=== PATIENT | male | born 1945 | race Caucasian/White ===

== ENCOUNTER 2019-10-26 07:07 | Day surgery (SDC) | payer OTHER ==
--- OUTSIDE RECORDS SUMMARY | 2019-10-26 07:10 | XMS REPORT | Continuity of Care Document ---
:1945 Author Organization [facility] Address [address] [place] [address] Dr. Al[address] [place] [address] Care Team Providers Name Role Phone Unavailable Unavailable Unavailable Problems Condition Condition Condition Status Onset Resolution Last Treating Co mments Source Name Details Category Date Date Treatment Clinician Date BPH with BPH with Problem [facility] - n/lower n/lower [facility] urinary urinary l tract tract Outpati symptoms symptoms ent Clinics Erectile Erectile Problem Active [facility] Allergies, Adverse Reactions, Alerts This patient has no known allergies or adverse reactions. Medications Ordered Filled Start Stop Current Ordering Indication Dosage Frequency Signature Comments Components Source Medication Medication Date Date Medication? Clinician (SIG) Name Name Bactrim Bactrim Yes Joseph [address] [facility] Tamsulosin Tamsulosin Yes Joseph [address] [facility] HCl HCl [place] [facility] Amlodipine Amlodipine Yes Joseph [address] [facility] Besylate Besylate [place] [facility] Repatha Repatha Yes Joseph as [facility] [place] [facility] Cialis Cialis Yes Joseph [address] [facility] Procedures This patient has no known procedures. Encounters Start End Encounter Admission Attending Care Care Encounter Source Date/Time Date/Time Type Type Clinicians Facility Department ID 2019-10-12 2019-10-12 Outpatient Danilo Rao [id number] [facility] 16[facility]13[facility]00 16:13:00 t Specialty/U [facility] Out[facility] ent Clinics 2019-10-11 2019-10-11 Outpatient Danilo Rao [id number] [facility] 12:50:00 12:50:00 t Specialty/U [facility] - [facility] l Clinic Outpat[facility] ent Clinics 2019-10-05 2019-10-05 [facility] [id number] [facility] 10:45:00 10:45:00 t Specialty/U [facility] - [facility] l Clinic Outpati ent Clinics 2019-09-29 2019-09-29 [facility] [id number] [facility] 14:15:00 14:15:00 t Specialty/U [facility] - [facility] l Clinic Outpati ent Clinics 2019-09-20 2019-09-20 [facility] [id number] [facility] 15:50:00 15:50:00 t Specialty/U [facility] - [facility] l Clinic Outpati ent Clinics 2019-09-15 2019-09-15 [facility] [id number] [facility] 15:56:00 15:56:00 t Specialty/U [facility] - [facility]rology [facility] l Clinic Outpati ent Clinics 2019-08-16 2019-08-16 [facility] [id number] [facility] 08:45:00 08:45:00 t Specialty/U [facility] - [facility]rology Clinic l Clinic Outpati ent Clinics 2019-07-22 2019-07-22 [facility] [id number] [facility] 08[facility]30:00 08:30:00 t Specialty/U [facility] - [facility]rology Clinic l Clinic Outpati ent Clinics 2019-06-10 2019-06-10 [facility] [id number] [facility] [address] 08:30:00 08:30:00 t Specialty/U [facility] - [facility] /Urology Clinic l Clinic Outpati ent Clinics 2019-06-08 2019-06-08 [facility] [id number] [facility] 10:23:00 10:23:00 t Specialty/U [facility] - [facility]Urology Clinic l Clinic Outpati ent Clinics Results This patient has no known results.
--- OUTSIDE RECORDS SUMMARY | 2019-10-26 07:10 | XMS REPORT ---
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
--- OUTSIDE RECORDS SUMMARY | 2019-10-26 07:10 | XMS REPORT ---
:1945 Author Organization [employer] Care Team Providers Name Role Phone Sachi Srinivasan Provider Role Unavailable Allergies, Adverse Reactions, Alerts Substance Reaction Event Type N.K.D.A. 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 Assessment Smoker Z72.0 Active Assessment Hematuria R31.9 Active Assessment Erectile disorder F52.21 Active Medications Medication Code Code Instructions Start End Status Dosage System Date Date Tamsulosin HCl [facility] 41047300869 0.4 MG Orally Active 1 capsule Once a day Repatha [facility] 14534367801 140mg/ml SQ Active as direc antonio Cialis [facility] 25891352832 20 MG Orally as Active 1 ta blet directed Amlodipine [facility] 02417802660 5 MG Orally Once Active 1 tablet Besylate a day Results No Known Results Summary Purpose eClinicalWorks Submission
--- OUTSIDE RECORDS SUMMARY | 2019-10-26 07:10 | XMS REPORT ---
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
--- OUTSIDE RECORDS SUMMARY | 2019-10-26 07:10 | XMS REPORT ---
:1945 Author Organization [employer] Care Team Providers Name Role Phone Joseph Nava Provider Role Unavailable Allergies, Adverse Reactions, Alerts Substance Reaction Event Type N.K.D.A. 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 Medications Medication Code Code Instructions Start End Status Dosage System Date Date Tamsulosin HCl [facility] 49520647332 0.4 MG Orally Active 1 capsule Once a day Amlodipine ND 43643360024 5 MG Orally Once Active 1 tablet Besylate a day Repatha [facility] 97280570503 140mg/ml SQ Active as direc antonio Cialis [facility] 34790812369 20 MG Orally as Active 1 ta blet directed Bactrim [facility] 22787081190 400-80 MG Orally Active 1 t ablet Once a day Results No Known Results Summary Purpose eClinicalWorks Submission
--- OUTSIDE RECORDS SUMMARY | 2019-10-26 07:10 | XMS REPORT ---
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
[2019-10-26] MEDS ORDERED: CEFTRIAXONE 1 GM/10 ML SYR ONE (08:27)
[2019-10-26] MEDS ORDERED: Ringers Lactate 1,000 ML IV ONE (08:59)
[2019-10-26] MEDS ORDERED: FENTANYL CITR 100 MCG/2 ML ONE (10:09)
[2019-10-26] MEDS ORDERED: propofoL 200 MG/20 ML VIAL IV ONE (10:10)
[2019-10-26] MEDS ORDERED: MIDAZOLAM HCL 2 MG/2 ML INJ ONE (10:10)
[2019-10-26] MEDS ORDERED: ONDANSETRON 4 MG/2 ML VIAL ONE (10:12)
[2019-10-26] MEDS ORDERED: LIDOCAINE 2% MPF 5 ML VIAL ONE (10:30)
[2019-10-26] MEDS ORDERED: ROCURONIUM 50 MG/5 ML VIAL IV ONE (11:04)
[2019-10-26] MEDS ORDERED: EPHEDRINE SULF 50 MG/ML VIAL ONE (11:15)
[2019-10-26] MEDS ORDERED: CODEINE 30MG/APAP 300MG TAB ONE (12:55)
[2019-10-26 14:13] VITALS: TEMP 96.9
[2019-10-26 14:14] VITALS: BP 161/78; O2SAT 93
--- NOTE | 2019-11-30 10:16 | OP ---
Date of Procedure: 10/26/2019 Surgeon: CANDIS HARMON Pan Greaser: Nurse practitioner, Craig. Preoperative Diagnosis: Bladder tumor. Postoperative Diagnosis: Bladder tumor. Procedure Performed: Cystoscopy, transurethral resection of bladder tumor, biopsies of tumor base. Anesthesia: General. Procedure In Detail: With the patient on the cystoscopy table after the induction of general anesthe ekaterina, the genitalia were prepped and draped in the usual sterile fashion. The cystoscope was passed p er urethra. There was a moderate-sized sessile and papillary tumor noted on the anterior bladder wal l in 2 primary areas. There was also moderate BPH. The cystoscope was exchanged for the resectoscop e and the tumor was resected down to its base. Separate cold cup biopsies were obtained of the tumor base and sent as a separate specimen. All of the bladder tumor fragments were sent as a separate sp ecimen as well. The areas were thoroughly fulgurated and complete hemostasis was obtained. A Yang catheter was inserted with clear efflux. It was attached to a drainage bag. The patient was awakene d, extubated, and transported to the recovery room in satisfactory condition. There were no complications and blood loss was approximately 20 cc. Counts were correct. Specimen was as noted above. GUI Voice ID: [id number] Report ID: [id number]
== END 2019-10-26 13:50 | disposition home or self-care (01) ==
LOC: OR 07:07
PROVIDERS: ATTEND Internal Medicine Hematology & Oncology
PROC: 0TBB8ZX Excision of Bladder, Via Natural or Artificial Opening Endoscopic, Diagnostic (ICD-10-PCS; principal; 2019-10-26 08:30)
DX: C67.9 Malignant neoplasm of bladder, unspecified (principal); C67.3 Malignant neoplasm of anterior wall of bladder; N40.1 Benign prostatic hyperplasia with lower urinary tract symptoms; F52.21 Male erectile disorder; F17.210 Nicotine dependence, cigarettes, uncomplicated; R39.15 Urgency of urination; R35.1 Nocturia; I10 Essential (primary) hypertension; E78.5 Hyperlipidemia, unspecified; Z01.812 Encounter for preprocedural laboratory examination; Z20.828 Contact with and (suspected) exposure to other viral communicable diseases
CPT/HCPCS: 52234; 87086; 88305; 88307; U0002; J2704; J3010; J0696; J7120; J2405; 87088; J2250

== ENCOUNTER 2020-01-25 08:00 | Day surgery (SDC) | payer OTHER ==
--- OUTSIDE RECORDS SUMMARY | 2020-01-19 15:24 | XMS REPORT ---
:1945 Author Organization [facility] Address [address] [facility] [address] [place] [address] Care Team Providers Name Role Phone Craig Unavailable [phone] PROBLEMS Type Condition ICD9-CM [id number] Onset Condition SNOMED Code Notes Code Code Dates Status Problem Erectile F52.21 Active 273757475781805 disorder Problem Bladder C67.9 Active 039489517 cancer Problem BPH with N40.1 Active 160013492 obstruction/l ower urinary tract symptoms ALLERGIES No Known Allergies ENCOUNTERS from 1945 to 2019-12-22 Encounter Location Date Provider Diagnosis [place] [address] [facility] Dec, Sachi Craig Bladder cancer Specialty/Urology [address], [address]67[address] [place] [address] tumor D49.4 IMMUNIZATIONS No Information SOCIAL HISTORY Tobacco Use: Social History Observation Description Date Details (start date - stop date) Current Smoker Sex Assigned At : Social History Observation Description Sex Assigned At Unknown Alcohol Screen Question Answer Notes Did you have a drink containing alcohol in Yes the past year? Points 3 Interpretation Negative How often did you have a drink containing Two to three times per week (3 alcohol in the past year? points) Tobacco Use/Smoking Question Answer Notes Are you a current smoker How many cigarettes a day do you smoke? - REASON FOR REFERRAL No Information VITAL SIGNS No information MEDICATIONS Medication SIG (Take, Route, Frequency, Start Date End Date Status Duration) Tamsulosin HCl 0.4 MG 1 capsule Orally Once a day for Active 90 Amlodipine Besylate 5 MG 1 tablet Orally Once a day Active Cialis 20 MG 1 tablet Orally as directed for Active 30 day(s) Bactrim 400-80 MG 1 tablet Orally Once a day for 5 Active days Repatha 140mg/ml as directed SQ Active PROCEDURES No Information RESULTS No Results REASON FOR VISIT Saw blood clot in urine MEDICAL (GENERAL) HISTORY Type Description Date Surgical History appendectomy 1994 Goals Section No Information Health Concerns No Information MEDICAL EQUIPMENT No Information MENTAL STATUS No Information FUNCTIONAL STATUS No Information ASSESSMENTS Encounter Date Diagnosis Notes Dec, Bladder tumor (ICD-10 - D49.4) Dec, Bladder cancer (ICD-10 - C67.9) PLAN OF TREATMENT Treatment Notes Assessment Notes Clinical Notes Bladder tumor Path is high grade i nvasive lamina propria, cytology HGUCF/u if unable to urinate, o r go to ER if chills, fever, N or VIf sees blood, force fluidsN o heavy lifting for next few days, then as ableKeep f/u with Dr Coby Faith, have questions/concerns ready to discuss Next Appt Details prn Reason:Bladder cancer Follow Up:[facility] Insurance Providers Payer Name Payer Address Payer Insured Patient Coverage Cover age End Phone Name Relationship to Start Date Osei e Insured [employer] [address] [address] [phone] Trino Garcia [facility] [address] [place] [address] [phone]
--- OUTSIDE RECORDS SUMMARY | 2020-01-19 15:24 | XMS REPORT ---
:1945 Author Organization [facility] Address [address] [place], [address] [place] [address] Care Team Providers Name Role Phone Craig Unavailable [phone] PROBLEMS Type Condition ICD9-CM [id number] Onset Condition SNOMED Code Notes Code Code Dates Status Problem BPH with N40.1 Active 829605340 obstruction/l ower urinary tract symptoms Problem Erectile F52.21 Active 231235479971374 disorder ALLERGIES No Known Allergies ENCOUNTERS from 1945 to 2019-11-15 Encounter Location Date Provider Diagnosis [facility] [address] [facility] [address] Oct, Sachi Srinivasan Specialty/[place] [address] IMMUNIZATIONS No Information SOCIAL HISTORY Tobacco Use: [...] Information RESULTS No Results REASON FOR VISIT No Information MEDICAL (GENERAL) HISTORY Type Description Date Surgical History appendectomy 1994 Goals Section No Information Health Concerns No Information MEDICAL EQUIPMENT No Information MENTAL STATUS No Information FUNCTIONAL STATUS No Information ASSESSMENTS No Information PLAN OF TREATMENT Medication Medication Name Sig Start Date Stop Date Tamsulosin HCl 0.4 MG 1 capsule Orally Once a day for 90 Next Appt Details Provider Name:Sachi Srinivasan, 09:15:00 AM, [facility] [address], [address], [place], [address], Insurance Providers Payer Name Payer Address Payer Insured Patient Coverage Cover age End Phone Name Relationship to Start Date Osei e Insured [employer] [address] [address] [phone] Trino Garcia [facility] [address] [place] [address] [phone]
--- OUTSIDE RECORDS SUMMARY | 2020-01-19 15:24 | XMS REPORT ---
:1945 Author Organization [facility] Address [address] [facility] [address] [place] [address] Care Team Providers Name Role Phone Craig Unavailable [phone] PROBLEMS Type Condition ICD9-CM [id number] Onset Condition SNOMED Code Notes Code Code Dates Status Problem Erectile F52.21 Active 067944541472697 disorder Problem Bladder C67.9 Active 060160578 cancer Problem BPH with N40.1 Active 245514654 obstruction/l ower urinary tract symptoms ALLERGIES No Known Allergies ENCOUNTERS from 1945 to 2019-12-29 Encounter Location Date Provider Diagnosis [facility] [address] [facility] 200 Dec, Sachi Srinivasan Specialty/[place] [address] IMMUNIZATIONS No Information SOCIAL HISTORY Tobacco Use: [...] Information ASSESSMENTS No Information PLAN OF TREATMENT Next Appt Details Provider Name:Josesito Pa, 2020-01-06 08:30:00 AM, [address] [place] [address], [place], [address], Insurance Providers Payer Name Payer Address Payer Insured Patient Coverage Cover age End Phone Name Relationship to Start Date Osei e Insured [employer] [address] [address] [phone] Trino Garica [facility] [address] [phone]
--- OUTSIDE RECORDS SUMMARY | 2020-01-19 15:24 | XMS REPORT ---
:1945 Author Organization [employer]ClinicalWorks Care Team Providers Name Role Phone Sachi Srinivasan Provider Role Unavailable Allergies, Adverse Reactions, Alerts Substance Reaction Event Type N.K.D.A. 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 Problem Erectile disorder F52.21 Active Assessment Bladder tumor D49.4 Active Medications Medication Code Code Instructions Start End Status Dosage System Date Date Cialis [facility][NOTE 3] 39854654293 20 MG Orally as Active 1 ta blet directed Tamsulosin HCl ND 41894872799 0.4 MG Orally Active 1 capsule Once a day Repatha ND 33103420009 140mg/ml SQ Active as direc antonio Amlodipine ND 27544018788 5 MG Orally Once Active 1 tablet Besylate a day Bactrim ND 90792510888 400-80 MG Orally Active 1 t ablet Once a day Results No Known Results Summary Purpose eClinicalWorks Submission
--- OUTSIDE RECORDS SUMMARY | 2020-01-19 15:24 | XMS REPORT ---
:1945 Author Organization [facility] Address [address] [facility], [address] [place] [address] Care Team Providers Name Role Phone Pa Unavailable [phone] PROBLEMS Type Condition ICD9-CM HPI29-PC Onset Condition SNOMED Code Notes Code Code Dates Status Problem Bladder cancer C67.9 Active 303823280 Problem Urothelial C68.9 Active 375428596 carcinoma with high risk of recurrence Problem BPH with N40.1 Active 051611383 obstruction/lo wer urinary tract symptoms Problem Erectile F52.21 Active 412702240538499 disorder ALLERGIES No Known Allergies ENCOUNTERS from 1945 to 2020-01-06 Encounter Location Date Provider Diagnosis [place] [facility] Dec, Josesito Pa BPH with Specialty/Urology [address] [facility] [address] urinary tract symptoms N40.1 and Urothelial carcinoma with high risk of recurre nce C68.9 IMMUNIZATIONS No Information SOCIAL HISTORY Tobacco Use: [...] many cigarettes a day do you smoke? 21-30 REASON FOR REFERRAL No Information VITAL SIGNS Height 70 in Dec, Weight 189.8 lbs Dec, Temperature 98.3 degrees Fahrenheit Dec, BMI 27.23 kg/m2 Dec, Oximetry 96 % Dec, Blood pressure systolic 188 mm Hg Dec, Blood pressure diastolic 86 mm Hg Dec, MEDICATIONS Medication SIG (Take, Route, Notes Start Date End Date Status Frequency, Duration) Amlodipine Besylate 5 MG 1 tablet Orally Once a day Active Repatha 140mg/ml as directed SQ Acti ve Bactrim 400-80 MG 1 tablet Orally Once a day Active for 5 days Tamsulosin HCl 0.4 MG 1 capsule Orally Once a day Active for 90 Cialis 20 MG 1 tablet Orally as directed Active for 30 day(s) PROCEDURES No Information RESULTS No Results REASON FOR VISIT consultation, S/P TURBT -FAUSTINO 10/26/2019 MEDICAL (GENERAL) HISTORY Type Description Date Medical History 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 PROPIA-NO MUSC ULARIS PROPRIA PRESENT Medical History PSA 1.1 DONE ON 05/05/19 Medical History TESTO 258.4 DONE ON 05/05/19 Surgical History appendectomy 1994 Surgical History TURBT-FAUSTINO 10/26/19 Goals Section No Information Health Concerns No Information MEDICAL EQUIPMENT No Information MENTAL STATUS No Information FUNCTIONAL STATUS No Information ASSESSMENTS Encounter Date Diagnosis Assessment Notes Treatment Notes Treatm ent Clinical Notes Dec, BPH with obstruction/lower urinary tract symptoms (ICD-10 - N40.1) Dec, Urothelial carcinoma with high risk of recurrence (ICD-10 - C68.9) PLAN OF TREATMENT Treatment Notes Test Name Order Date URINALYSIS AUTO W/O SCOPE (89152) 2020-01-06 Urine Culture 2020-01-06 Insurance Providers Payer Name Payer Address Payer Insured Patient Coverage Cover age End Phone Name Relationship to Start Date Osei e Insured [employer] [address] [address] [phone] Trino Garcia [facility] [address] [place] [address] [phone]
--- OUTSIDE RECORDS SUMMARY | 2020-01-19 15:24 | XMS REPORT ---
:1945 Author Organization [facility] Address [address] [facility] [address] [place] [address] Care Team Providers Name Role Phone Pa Unavailable [phone] PROBLEMS Type Condition ICD9-CM [id number] Onset Condition SNOMED Code Notes Code Code Dates Status Problem Bladder cancer C67.9 Active 636448363 Problem Urothelial C68.9 Active 256824319 carcinoma with high risk of recurrence Problem BPH with N40.1 Active 239575408 obstruction/lo wer urinary tract symptoms Problem Erectile F52.21 Active 956786860115935 disorder ALLERGIES No Known Allergies ENCOUNTERS from 1945 to 2020-01-07 Encounter Location Date Provider Diagnosis [facility] [address] [facility] 200 20 Dec, 2019 Josesito Pa Specialty/[place] [address] IMMUNIZATIONS No Information SOCIAL HISTORY Tobacco Use: [...] many cigarettes a day do you smoke? REASON FOR REFERRAL No Information VITAL SIGNS No information MEDICATIONS Medication SIG (Take, Route, Notes Start Date End Date Status Frequency, Duration) Amlodipine Besylate 5 MG 1 tablet Orally Once a Active day Repatha 140mg/ml as directed SQ Acti ve Cialis 20 MG 1 tablet Orally as Acti ve directed for 30 day(s) Gemcitabine HCl 2 GM as directed Intravenous Dec, Active Tamsulosin HCl 0.4 MG 1 capsule Orally Once a Active day for 90 Bactrim 400-80 MG 1 tablet Orally Once a Active day for 5 days PROCEDURES No Information RESULTS No Results REASON FOR VISIT No Information MEDICAL (GENERAL) HISTORY Type Description Date Medical [...] Medication Name Sig Start Date Stop Date Gemcitabine HCl 2 GM as directed Intravenous Dec, Next Appt Details Provider Name:Josesito Pa 2020-01-25 08:30:00 AM, [address] [place] [address], [address], [place], [address], Insurance Providers Payer Name Payer Address Payer Insured Patient Coverage Cover age End Phone Name Relationship to Start Date Osei e Insured [employer] [address] [address] [phone] Trino Garcia [facility] [address] [place] [address] [phone]
--- OUTSIDE RECORDS SUMMARY | 2020-01-19 15:24 | XMS REPORT ---
:1945 Author Organization [facility] Address [address] [facility] [address] [place] [address] Care Team Providers Name Role Phone Craig Unavailable [phone] PROBLEMS Type Condition ICD9-CM SEF90-LE Onset Condition SNOMED Code Notes Code Code Dates Status Problem BPH with N40.1 Active 183314032 obstruction/l ower urinary tract symptoms Problem Erectile F52.21 Active 900190698454620 disorder ALLERGIES No Known Allergies ENCOUNTERS from 1945 to 2019-12-01 Encounter Location Date Provider Diagnosis [facility] [address] [facility] 200 13 Nov, 2019 Sachi Srinivasan Specialty[place] [address] IMMUNIZATIONS No Information SOCIAL HISTORY Tobacco Use: [...] 1 tablet Orally Once a day Active Bactrim 400-80 MG 1 tablet Orally Once a day for 5 Active days Cialis 20 MG 1 tablet Orally as directed for Active 30 day(s) Repatha 140mg/ml as directed SQ Active PROCEDURES [...] 90 Next Appt Details Provider Name:Sachi Srinivasan, 2019-- 09:15:00 AM, [address] [place] [address], [phone], Insurance Providers Payer Name Payer Address Payer Insured Patient Coverage Cover age End Phone Name Relationship to Start Date Osei e Insured [employer] [address] [address] [phone] Trino Garcia [facility] [address] [phone]
--- OUTSIDE RECORDS SUMMARY | 2020-01-19 15:24 | XMS REPORT | Continuity of Care Document ---
:1945 Author Organization [facility] t Address [address] [place] [address] Care Team Providers Name Role Phone Unavailable Unavailable Unavailable Payers Payer Name Policy Type Policy Effective Date Expiration Date Sour ce Number HUMANA [id number] 2019 MD Kelly MEDICAREHUMANDorothy GOLD 00:00:00 PLUS MEDICARE [id number] 2019 -PresentMedicare Problems This patient has no known problems. Allergies, Adverse Reactions, Alerts This patient has no known allergies or adverse reactions. Social History Social Habit Start Date Stop Date Quantity Comments Source Sex Assigned At M MD Kelly Medications Ordered Filled Start Stop Current Ordering Indication Dosage Frequency Signature Comments Components Source Medication Medication Date Date Medication? Clinician (SIG) Name Name Bactrim Bactrim Yes Sachi [address] [facility] [place] Tamsulosin Tamsulosin Yes Sachi [address] [facility] HCl HCl [place] [facility] Amlodipine Amlodipine Yes Sachi [address] [facility] Besylate Besylate [facility] Repatha Repatha Yes Sachi as [facility] Cialis Cialis Yes Sachi [address] [facility] [place] [facility] Procedures This patient has no known procedures. Encounters Start End Encounter Admission Attending Care Care Encounter Source Date/Time Date/Time Type Type Clinicians Facility Department ID 2020-01-07 2020-01-07 [facility] [id number] [facility] 2020-01-06 2020-01-06 [facility] [id number] [facility] 2019-12-28 2019-12-28 [facility] [id number] [facility] 2019-12-22 2019-12-22 Out[facility] [id number] [facility] 2019-11-30 2019-11-30 [facility] [id number] [facility] 2019-11-15 2019-11-15 Out[facility] [id number] [facility] 2019-11-02 2019-11-02 [facility] [id number] [facility] 16[facility]19[facility]00 16:19:00 [facility] 2019-10-29 2019-10-29 [facility] [id number] [facility] 08[facility]15[facility]00 08:15:00 [facility] 2019-10-12 2019-10-12 [facility] [id number] [facility] 16:13:00 16:13:00 t [facility] 2019-10-11 2019-10-11 [facility] [id number] [facility] 12:50:00 12:50:00 [facility] 2019-10-05 2019-10-05 [facility] [id number] [facility] 10:45:00 10:45:00 [facility] 2019-09-29 2019-09-29 [facility] [id number] [facility] 14:15:00 14:15:00 [facility] 2019-09-20 2019-09-20 [facility] [id number] [facility] 15[facility]50:00 15:50:00 [facility] 2019-09-15 2019-09-15 [facility] [id number] [facility] 15[facility]56:00 15:56:00 [facility] 2019-08-16 2019-08-16 [facility] [id number] [facility] 08:45:00 08:45:00 t [facility] 2019-07-22 2019-07-22 [facility] [id number] [facility] 08[facility]30:00 08:30:00 t [facility] 2019-06-10 2019-06-10 [facility] [id number] [facility] 08[facility]30:00 08:30:00 t [facility] 2019-06-08 2019-06-08 [facility] [id number] [facility] 10:23:00 10:23:00 t [facility] Results This patient has no known results.
[2020-01-19 16:31] LABS: Absolute Lymphocytes (CBC) 1.4 K/uL (0.7-4.9); Hematocrit 41.3 % (39.6-49.0); Lymphocytes % 23.5 % (15.3-44.8); MPV 9.3 fL (7.6-11.3); RBC Red Blood Cell Count 4.42 M/uL (4.33-5.43)
--- NOTE | 2020-01-19 16:40 | RAD REPORT ---
EXAM DESCRIPTION: RAD - Chest Pa And Lat (2 Views) - 01/19/2020 4:27 pm CLINICAL HISTORY: PRE OP, patient pending bladder tumor removal COMPARISON: AP chest June 2014 TECHNIQUE: Frontal and lateral views of the chest were obtained. FINDINGS: The lungs are clear of mass or infiltrate. Chronic interstitial pattern is present. No hil ar lymphadenopathy. Heart size is normal and central vasculature is within normal limits. No pleur al effusion or pneumothorax seen. No acute bony finding noted. No aortic abnormality. IMPRESSION: Chronic interstitial pattern similar to comparison. No acute finding.
[2020-01-19 16:41] LABS: BUN Blood Urea Nitrogen 15 mg/dL (7-18); Bicarbonate 30 mmol/L (21-32); Glucose Level 107 mg/dL (74-106); Potassium 4.1 mmol/L (3.5-5.1); Sodium Level 140 mmol/L (136-145)
[2020-01-25] MEDS ORDERED: CEFAZOLIN/SWI 2gm 2 GM/20 ML SYR ONE (08:29)
[2020-01-25] MEDS ORDERED: Ringers Lactate 1,000 ML IV ONE (08:29)
[2020-01-25] MEDS ORDERED: GEMCITABINE HCL 1,000 MG in NA CHLORIDE 0.9% 26.3 ML IVPB ONE (08:30)
[2020-01-25] MEDS ORDERED: FENTANYL CITR 100 MCG/2 ML ONE (09:10)
[2020-01-25] MEDS ORDERED: propofoL 200 MG/20 ML VIAL IV ONE (09:10)
[2020-01-25] MEDS ORDERED: LIDOCAINE 1% MPF 5 ML VIAL ONE (09:10)
[2020-01-25] MEDS ORDERED: ROCURONIUM 50 MG/5 ML VIAL IV ONE (09:27)
[2020-01-25] MEDS ORDERED: KETOROLAC 30 MG/ML INJ ONE (09:39)
[2020-01-25] MEDS ORDERED: EPHEDRINE SULF 50 MG/ML VIAL ONE (09:41)
[2020-01-25] MEDS ORDERED: ONDANSETRON 4 MG/2 ML VIAL ONE (09:41)
[2020-01-25] MEDS ORDERED: NS 0.9% VIAL 10 ML ONE (09:41)
[2020-01-25] MEDS ORDERED: CEFAZOLIN/SWI 1gm 1 GM/10 ML SYR ONE (09:42)
[2020-01-25] MEDS ORDERED: NEOSTIGMINE 1 MG/ML -5 ML ONE (10:32)
[2020-01-25] MEDS ORDERED: GLYCOPYRROLATE 0.2 MG/ML SYR ONE (10:33)
--- OUTSIDE RECORDS SUMMARY | 2020-01-25 10:38 | XMS REPORT | Continuity of Care Document ---
:1945 Author Organization [facility] t Address [address] [place] [address] Care Team Providers Name Role Phone Unavailable Unavailable Unavailable Payers Payer Name Policy Type Policy Effective Date Expiration Date Sour ce Number HUMANA [id number] 2019 MD Kelly MEDICAREHUMANDorothy GOLD 00:00:00 PLUS MEDICARE [id number] 2019 -PresentMedicare Problems This patient has no [...] Bactrim Yes Sachi [address] [facility] [place] [facility] Tamsulosin Tamsulosin Yes Sachi [address] [facility] HCl HCl [place] [facility] Amlodipine Amlodipine Yes Sachi [address] [facility] Besylate Besylate [facility] Repatha Repatha Yes Sachi as [facility] [place] [facility] Cialis Cialis Yes Sachi [address] [facility] [place] [facility] Procedures This patient has no known procedures. Encounters Start End Encounter Admission Attending Care Care Encounter Source Date/Time Date/Time Type Type Clinicians Facility Department ID 2020-01-07 2020-01-07 [facility] [id number] [facility] 2020-01-06 2020-01-06 [facility] [id number] [facility] 2019-12-28 2019-12-28 [facility] [id number] [facility] 2019-12-22 2019-12-22 [facility] [id number] [facility] 2019-11-30 2019-11-30 [facility] [id number] [facility] 2019-11-15 2019-11-15 Out[facility] [id number] [facility] 2019-11-02 2019-11-02 [facility] [id number] [facility] 16:19:00 16:19:00 [facility] 2019-10-29 2019-10-29 [facility] [id number] [facility] 08:15:00 08:15:00 t [facility] 2019-10-12 2019-10-12 [facility] [id number] [facility] 16:13:00 16:13:00 t [facility] 2019-10-11 2019-10-11 [facility] [id number] [facility] 12:50:00 12:50:00 t [facility] 2019-10-05 2019-10-05 [facility] [id number] [facility] 10:45:00 10:45:00 t [facility] 2019-09-29 2019-09-29 [facility] [id number] [facility] 14:15:00 14:15:00 t [facility] 2019-09-20 2019-09-20 [facility] [id number] [facility] 15:50:00 15:50:00 t [facility] 2019-09-15 2019-09-15 [facility] [id number] [facility] 15:56:00 15:56:00 t [facility] 2019-08-16 2019-08-16 [facility] [id number] [facility] 08:45:00 08:45:00 t [facility] 2019-07-22 2019-07-22 [facility] [id number] [facility] 08:30:00 08:30:00 t [facility] 2019-06-10 2019-06-10 [facility] [id number] [facility] 08:30:00 08:30:00 t [facility] 2019-06-08 2019-06-08 [facility] [id number] [facility] 10:23:00 10:23:00 t [facility] Results This patient has no known results.
--- OUTSIDE RECORDS SUMMARY | 2020-01-25 10:38 | XMS REPORT ---
[...] End Status Dosage System Date Date Cialis [facility] 29161058895 20 MG Orally as Active 1 ta blet directed Tamsulosin HCl ND 28761021188 0.4 MG Orally Active 1 capsule Once a day Repatha ND 49243613543 140mg/ml SQ Active as direc antonio Amlodipine ND 84733093663 5 MG Orally Once Active 1 tablet Besylate a day Bactrim ND 16508398746 400-80 MG Orally Active 1 t ablet Once a day Results No Known Results Summary Purpose eClinicalWorks Submission
[2020-01-25] MEDS ORDERED: MORPHINE 4 MG/ML SYR ONE (11:19)
[2020-01-25] MEDS ORDERED: PROMETHAZINE INJ 25 MG/ML AMP ONE (11:19)
--- NOTE | 2020-01-25 12:07 | OP ---
Surgeon: CRUZ GARCIA Addendum: Procedure Performed: Instillation of intravesical gemcitabine chemotherapy that is in addition to th e cystoscopy, dilation of urethral stricture, TURBT, instillation of intravesical gemcitabine chemoth erapy. VIANCA/NABEELL Voice ID: [id number] Report ID: [id number]
--- NOTE | 2020-01-25 12:30 | OP ---
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 Associated Diagnosis: Gross hematuria. Postoperative Diagnoses: 1.pT1 urothelial carcinoma. 2.Gross hematuria. 3.Bladder tumor. 4.Urethral stricture. Procedures Completed: Cystoscopy, dilation of perineal urethral stricture. Transurethral resection of a bladder tumor approximately 3-4 cm in diameter. Procedure Note: The patient was consented in the preoperative holding area before being transferred to operative suite where general anesthesia was induced. He was given IV antimicrobial prophylaxis a nd pneumo boots were provided for DVT prophylaxis. He was placed in the lithotomy position, padded a nd secured to the table appropriately. The case was begun using a 22-Albanian rigid cystoscope to sivan erse the urethra until a strictured narrowing was encountered in the perineal bulbar region. Because it would not allow passage of the 22-Albanian cystoscope, I passed a guidewire via the stricture into the bladder and used sequential dilators to dilate the stricture up to 24-Albanian. Once this was comp leted, I then was able to pass the 22-Albanian cystoscope via the strictured area and beyond the prosta tic urethra, which had only mild BPH and into the bladder with ease. There was evident gross hematur ia, and so the bladder was irrigated to clear it. I then surveyed the bladder in its entirety. In t he dome of the bladder, there was a nodular tumor approximately 3-4 cm in diameter. Initially, using cold cup biopsy forceps, I biopsied the periphery of the tumor in 4 different locations. Because of the size of the tumor, I then used urethral sounds to dilate the meatus and fossa navicularis to 30- Albanian, and then I switched to a 26-Albanian bipolar resectoscope. We switched to normal saline and co ntinued the resection using a loop electrode. The entirety of the tumor was resected down to muscle fibers, and there was no evidence of any bladder perforation or extravesical fat. I carefully fulgur ated the entirety of the tumor, and then Mitzi evacuated all of the mini chips out of the bladder. T ronne were sent separately for pathologic analysis from the initial bladder biopsy specimens. I then decompressed his bladder and carefully searched for bleeding, and when no additional bleeding was not ed, I placed a 20-Albanian urethral Yang catheter with ease into his bladder and 10 cc of sterile wate r into the balloon. I then decompressed his bladder completely of the fluid within and instilled 50 cc of gemcitabine 2 g. The catheter was then clamped and connected to a bag. The patient was then a wakened from general anesthesia after being taken out of the lithotomy position. He was then transfe rred to a stretcher and then to the recovery room in good condition. Complications: None. Discharge Disposition: He will be discharged with a Yang catheter in place after the chemotherapy i s drained and he is provided with a new leg bag. He will be discharged with a daily prophylactic pre scription for Bactrim double strength tablets once daily, and he will be given a prescription for Buck heath 5 mg tablets for pain. Pyridium will be provided for the day of the scheduled voiding trial and pathology discussion. Should he have significant discomfort associated with bladder spasms with the catheter in place, oxybutynin 5 mg tablets may be considered. Impression: Due to the extensive and nodular nature of this tumor, it is my suspicion that the tumor is indeed muscle invasive. Given the isolated location within the dome, I think he would be a good candidate for partial cystectomy. In preparation for that, should the pathology confirm muscle invas carla disease, the patient will require random bladder biopsies prior to robotic partial cystectomy. May lanier will also be arranged in preparation for such events. VIANCA/JOSE Voice ID: [id number] Report ID: [id number]
[2020-01-25] MEDS ORDERED: HYDROCODONE/APAP 10/325 TAB ONE (13:23)
[2020-01-25 15:49] VITALS: BP 141/72; TEMP 97; O2SAT 95
--- OUTSIDE RECORDS SUMMARY | 2020-01-25 18:49 | XMS REPORT | Continuity of Care Document ---
:[address] [facility] t Address [address] [place] [address] Care Team Providers Name Role Phone Unavailable Unavailable Unavailable Payers Payer Name Policy Type Policy Effective Date Expiration Date Sour ce Number HUMANA [id number] 2019 MD Kelly MEDICAREHUMANA GOLD 00:00:00 PLUS MEDICARE [id number] 2020 -PresentMedicare Problems This patient has no known [...] Bactrim Yes Sachi [address] [facility] [place] [facility] Tamsulosin Tamsulosin Yes Sachi [address] [facility] HCl HCl [place] [facility] Amlodipine Amlodipine Yes Sachi [address] [facility] Besylate Besylate [facility] Repatha Repatha Yes Sachi as [facility] [place] [facility] Cialis Cialis Yes Sachi [address] [facility] [place] [facility] Procedures This patient has no known procedures. Encounters Start End Encounter Admission Attending Care Care Encounter Source Date/Time Date/Time Type Type Clinicians Facility Department ID 2020-01-07 2020-01-07 Outpatient [facility] [id number] [facility] 2020-01-06 2020-01-06 [facility] [id number] [facility] 2019-12-28 2019-12-28 Out[facility] [id number] [facility] 2019-12-22 2019[facility]12-22 [facility] [id number] 2019-11-30 2019-11-30 Outpatient [facility] [id number] [facility] 2019-11-15 2019-11-15 [facility] [id number] [facility] 2019-11-02 2019-11-02 [facility] [id number] [facility] 16:19:00 16:19:00 t [facility] 2019-10-29 2019-10-29 [facility] [id number] [facility] 08:15:00 08:15:00 t [facility] 2019-10-12 2019-10-12 [facility] [id number] [facility] 16:13:00 16:13:00 t [facility] 2019-10-11 2019-10-11 [facility] [id number] [facility] 12:50:00 12:50:00 t [facility] 2019-10-05 2019-10-05 [facility] [id number] [facility] 10:45:00 10:45:00 t [facility] 2019-09-29 2019-09-29 [facility] [id number] [facility] 14:15:00 14:15:00 t [facility] 2019-09-20 2019-09-20 [facility] [id number] [facility] 15:50:00 15:50:00 t [facility] 2019-09-15 2019-09-15 [facility] [id number] [facility] 15:56:00 15:56:00 t [facility] 2019-08-16 2019-08-16 [facility] [id number] 08:45:00 08:45:00 t Special[facility] 2019-07-22 2019-07-22 [facility] [id number] [facility] 08:30:00 08:30:00 t Specialty/[facility] 2019-06-10 2019-06-10 [facility] [id number] [facility] 08:30:00 08:30:00 t Specialty/[facility] 2019-06-08 2019-06-08 [facility] [id number] [facility] 10:23:00 10:23:00 t Special[facility] Results This patient has no known results.
--- OUTSIDE RECORDS SUMMARY | 2020-01-25 18:49 | XMS REPORT ---
[...] End Status Dosage System Date Date Cialis [facility] [id number] 20 MG Orally as Active 1 ta blet directed Tamsulosin HCl ND 41391347642 0.4 MG Orally Active 1 capsule Once a day Repatha ND 75787890843 140mg/ml SQ Active as direc antonio Amlodipine ND 91477754459 5 MG Orally Once Active 1 tablet Besylate a day Bactrim ND 36270200246 400-80 MG Orally Active 1 t ablet Once a day Results No Known Results Summary Purpose eClinicalWorks Submission
== END 2020-01-25 13:50 | disposition home or self-care (01) ==
LOC: OR 08:00
PROVIDERS: ATTEND Urology
PROC: 0TBB8ZX Excision of Bladder, Via Natural or Artificial Opening Endoscopic, Diagnostic (ICD-10-PCS; principal; 2020-01-25 09:15)
DX: C68.9 Malignant neoplasm of urinary organ, unspecified (principal); N40.1 Benign prostatic hyperplasia with lower urinary tract symptoms; R31.0 Gross hematuria; N35.919 Unspecified urethral stricture, male, unspecified site; Z20.828 Contact with and (suspected) exposure to other viral communicable diseases
CPT/HCPCS: 93005; 87088; 85025; 87086; 80048; 36415; 88305; 71046; 52235; U0002; J2704; J2550; J3010; J2710; J0690 ×2; J9201; J7120; J2405

== ENCOUNTER 2020-01-25 19:26 | Emergency (ER) | payer OTHER ==
--- OUTSIDE RECORDS SUMMARY | 2020-01-25 19:36 | XMS REPORT | Continuity of Care Document ---
:1945 Author Organization [facility] t Address [address] [place] [address] Care Team Providers Name Role Phone Unavailable Unavailable Unavailable Payers Payer Name Policy Type Policy Effective Date Expiration Date Sour ce Number HUMANA [id number] 2019 MD Kelly MEDICAREHUMANA GOLD 00:00:00 PLUS MEDICARE [id number] 2020 -PresentMedicare Problems This patient has no [...] Bactrim Yes Sachi [address] [facility] [place] [facility] Tamsulosin Tamsulosin Yes Sachi [address] [facility] HCl HCl [place] [facility] Amlodipine Amlodipine Yes Sachi [address] [facility] Besylate Besylate [facility] Repatha Repatha Yes Sachi as [facility] Cialis Cialis Yes Sachi [address] [facility] Procedures This patient has no known procedures. Encounters Start End Encounter Admission Attending Care Care Encounter Source Date/Time Date/Time Type Type Clinicians Facility Department ID 2020-01-07 2020-01-07 Outpatient [facility] [id number] [facility] 2020-01-06 2020-01-06 Out[facility] [id number] [facility] 2019-12-28 2019-12-28 Out[facility] [id number] [facility] 2019-12-22 2019-12-22 Outpatient [facility] [id number] [facility] 2019-11-30 2019-11-30 Outpatient [facility] [id number] [facility] 2019-11-15 2019-11-15 Outpatient [facility] [id number] [facility] 2019-11-02 2019-11-02 [facility] [id number] [facility] 16:19:00 16:19:00 t Special[facility] 2019-10-29 2019-10-29 [facility] [id number] [facility] 08:15:00 08:15:00 t Specialty/[facility] 2019-10-12 2019-10-12 [facility] [id number] [facility] 16:13:00 16:13:00 t Special[facility] 2019-10-11 2019-10-11 [facility] [id number] [facility] 12:50:00 12:50:00 t Specialty/[facility] 2019-10-05 2019-10-05 [facility] [id number] [facility] 10:45:00 10:45:00 t Special[facility] 2019-09-29 2019-09-29 [facility] [id number] [facility] 14:15:00 14:15:00 t Specialty/[facility] 2019-09-20 2019-09-20 [facility] [id number] [facility] 15:50:00 15:50:00 t Special[facility] 2019-09-15 2019-09-15 [facility] [id number] [facility] 15:56:00 15:56:00 t Specialty/[facility] 2019-08-16 2019-08-16 [facility] [id number] [facility] 08:45:00 08:45:00 t Specialty/[facility] 2019-07-22 2019-07-22 [facility] [id number] [facility] 08:30:00 08:30:00 t Specialty/[facility] 2019-06-10 2019-06-10 [facility] [id number] [facility] 08:30:00 08:30:00 t Specialty/[facility] 2019-06-08 2019-06-08 [facility] [id number] [facility] 10:23:00 10:23:00 t Specialty/[facility] Results This patient has no known results.
--- OUTSIDE RECORDS SUMMARY | 2020-01-25 19:37 | XMS REPORT ---
[...] End Status Dosage System Date Date Cialis [facility] [id number] 20 MG Orally as Active 1 ta blet directed Tamsulosin HCl ND 58579457634 0.4 MG Orally Active 1 capsule Once a day Repatha ND 03631097312 140mg/ml SQ Active as direc antonio Amlodipine ND 44038570906 5 MG Orally Once Active 1 tablet Besylate a day Bactrim ND 07307780757 400-80 MG Orally Active 1 t ablet Once a day Results No Known Results Summary Purpose eClinicalWorks Submission
[2020-01-25] MEDS ORDERED: NA CHLORIDE 0.9% 1,000 ML ONE (20:55)
[2020-01-25] MEDS ORDERED: CEFTRIAXONE/SWI 1gm 1 GM/10 ML SYR ONE (20:55)
[2020-01-25 21:12] LABS: Absolute Lymphocytes (CBC) 0.8 K/uL (0.7-4.9); Basophils % 0.5 % (0-1.3); Hematocrit 40.4 % (39.6-49.0); Lymphocytes % 11.1 % (15.3-44.8); MPV 9.5 fL (7.6-11.3); RBC Red Blood Cell Count 4.31 M/uL (4.33-5.43)
[2020-01-25 21:29] LABS: Albumin 3.6 g/dL (3.4-5.0); Bilirubin Total 0.6 mg/dL (0.2-1.0); Potassium 4.1 mmol/L (3.5-5.1)
--- NOTE | 2020-01-25 21:50 | ER ---
Nurse's Notes [facility] Name: Ulices Garcia Age: 74 yrs Sex: Male : 1945 Arrival Date: 01/25/2020 Time: 19:28 Bed 26 Private MD: Diagnosis: Hematuria;Urinary tract infection, site not specified Presentation: 01/24 19:43 Chief complaint: Patient states: i had a bladder sx with Dr Pa today at day sx and mg2 i have a Yang Catheter and I think it's clogged and it's more bloody. Coronavirus screen: Client denies travel out of the [place] in the last 14 days. At this time, the client does not indicate any symptoms associated with coronavirus-19. Ebola Screen: No symptoms or risks identified at this time. Initial Sepsis Screen: Does the patient meet any 2 criteria? No. Patient's initial sepsis screen is negative. Does the patient have a suspected source of infection? No. Patient's initial sepsis screen is negative. Risk Assessment: Do you want to hurt yourself or someone else? Patient reports no desire to harm self or others. Onset of symptoms was January 2020. 19:43 Method Of Arrival: Ambulatory mg2 19:43 Acuity: YAMILA 4 mg2 Historical: - Allergies: 19:47 No Known Allergies; mg2 - Home Meds: 19:47 amlodipine oral [Active]; repaHA [Active]; FLOMAX [Active]; mg2 - PMHx: 19:47 DYSLIPIDEMIA; Hypertension; mg2 - PSHx: 19:47 BLADDER SX; mg2 - Immunization history:: Flu vaccine is up to date. - Social history:: Smoking status: Patient denies any tobacco usage or history of. Patient/guardian denies using alcohol, street drugs, IV drugs. Screenin:00 Abuse screen: Denies threats or abuse. Nutritional screening: No deficits noted. zb Tuberculosis screening: No symptoms or risk factors identified. Fall Risk None identified. Assessment: 20:00 General: Appears in no apparent distress. comfortable, Behavior is calm, cooperative, zb appropriate for age. Pain: Denies pain. Neuro: Level of Consciousness is awake, alert, obeys commands, Oriented to person, place, time, situation. Cardiovascular: Capillary refill < 3 seconds in bilateral fingers Patient's skin is warm and dry. Respiratory: Airway is patent Respiratory effort is even, unlabored, Respiratory pattern is regular, symmetrical. GI: Abdomen is round non-distended. : to gravity drainage Urine is luis blood, Genitalia appear normal Reports cathether stopped draining after he fell asleep today Denies pain. EENT: No signs and/or symptoms were reported regarding the EENT system. Derm: Skin is intact, is healthy with good turgor, Skin is pink, warm \T\ dry. normal. Musculoskeletal: Circulation, motion, and sensation intact. Range of motion: intact in all extremities. 21:00 Reassessment: Patient appears in no apparent distress at this time. Patient and/or zb family updated on plan of care and expected duration. Pain level reassessed. Patient is alert, oriented x 3, equal unlabored respirations, skin warm/dry/pink. pt Yang cathether irrigated. Patient denies pain at this time. 22:00 Reassessment: Patient appears in no apparent distress at this time. Patient and/or zb family updated on plan of care and expected duration. Pain level reassessed. Patient is alert, oriented x 3, equal unlabored respirations, skin warm/dry/pink. Yang draining properly. Vital Signs: 19:43 BP 158 / 72; Pulse 84; Resp 18; Temp 98.6; Pulse Ox 97% ; Weight 86.18 kg; Height 5 ft. mg2 10 in. (177.80 cm); 22:30 BP 152 / 77; Pulse 70; Resp 16; Pulse Ox 95% on R/A; zb 19:43 Body Mass Index 27.26 (86.18 kg, 177.80 cm) mg2 ED Course: 19:28 Patient arrived in ED. ag3 19:45 Triage completed. mg2 19:45 Arm band placed on. mg2 19:52 Robe Kelly MD is Attending Physician. angel 19:57 Olga Chapman RN is Primary Nurse. zb 20:00 Patient has correct armband on for positive identification. Bed in low position. Call zb light in reach. Side rails up X 1. Door closed. Noise minimized. 21:00 Bladder irrigated via Yang with 150ml returned luis blood Patient tolerated well. zb 21:27 Bladder scan completed. 0 ML, provider notified. Yang with red colored urine in it, jd3 provider notified. 21:49 Josesito Pa MD is Referral Physician. angel 22:41 No provider procedures requiring assistance completed. IV discontinued, intact, zb bleeding controlled, No redness/swelling at site. Pressure dressing applied. Administered Medications: 21:15 Drug: Rocephin 1 grams Route: IV; Rate: per protocol; Site: right antecubital; jd3 21:36 Drug: NS 0.9% 1000 ml Route: IV; Rate: 1 bolus; Site: right antecubital; jd3 Outcome: 21:49 Discharge ordered by . angel 22:41 Discharged to home ambulatory, with family. zb 22:41 Condition: stable 22:41 Discharge instructions given to patient, family, Instructed on discharge instructions, follow up and referral plans. medication usage, Demonstrated understanding of instructions, follow-up care, medications, Prescriptions given X 2. 22:42 Patient left the ED. zb Signatures: Robe Kelly MD MD cha Davies, Jonathon, RN RN jd3 Gardose, Michele, RN RN mg2 Gomez, Alice ag3 Brown, Zipporah, RN RN zb
--- NOTE | 2020-01-25 21:50 | EDPHYS ---
Physician Documentation [facility] Name: Ulices Garcia Age: 74 yrs Sex: Male : 1945 Arrival Date: 01/25/2020 Time: 19:28 Bed 26 Private MD: ED Physician Robe Kelly HPI: 01/24 20:25 This 74 yrs old Male presents to ER via Ambulatory with complaints of Urinary angel Problem. 20:25 The patient presents with urinary symptoms, dysuria, retention. Onset: The angel symptoms/episode began/occurred 1 day(s) ago. Modifying factors: The symptoms are alleviated by remaining still, the symptoms are aggravated by nothing. Associated signs and symptoms: The patient has no apparent associated signs or symptoms. Severity of symptoms: At their worst the symptoms were mild, in the emergency department the symptoms are unchanged. The patient has not experienced similar symptoms in the past. Historical: - Allergies: 19:47 No Known Allergies; mg2 - Home Meds: 19:47 amlodipine oral [Active]; repaHA [Active]; FLOMAX [Active]; mg2 - PMHx: 19:47 DYSLIPIDEMIA; Hypertension; mg2 - PSHx: 19:47 BLADDER SX; mg2 - Immunization history:: Flu vaccine is up to date. - Social history:: Smoking status: Patient denies any tobacco usage or history of. Patient/guardian denies using alcohol, street drugs, IV drugs. ROS: 20:26 Constitutional: Negative for fever, chills, and weight loss, Eyes: Negative for injury, angel pain, redness, and discharge, ENT: Negative for injury, pain, and discharge, Neck: Negative for injury, pain, and swelling, Cardiovascular: Negative for chest pain, palpitations, and edema, Respiratory: Negative for shortness of breath, cough, wheezing, and pleuritic chest pain, Back: Negative for injury and pain, MS/Extremity: Negative for injury and deformity, Skin: Negative for injury, rash, and discoloration, Neuro: Negative for headache, weakness, numbness, tingling, and seizure, Psych: Negative for depression, anxiety, suicide ideation, homicidal ideation, and hallucinations, Allergy/Immunology: Negative for hives, rash, and allergies, Endocrine: Negative for neck swelling, polydipsia, polyuria, polyphagia, and marked weight changes, Hematologic/Lymphatic: Negative for swollen nodes, abnormal bleeding, and unusual bruising. 20:26 Abdomen/GI: Positive for abdominal pain, of the suprapubic area. Exam: 20:26 Constitutional: This is a well developed, well nourished patient who is awake, alert, angel and in no acute distress. Head/Face: Normocephalic, atraumatic. Eyes: Pupils equal round and reactive to light, extra-ocular motions intact. Lids and lashes normal. Conjunctiva and sclera are non-icteric and not injected. Cornea within normal limits. Periorbital areas with no swelling, redness, or edema. ENT: Nares patent. No nasal discharge, no septal abnormalities noted. Tympanic membranes are normal and external auditory canals are clear. Oropharynx with no redness, swelling, or masses, exudates, or evidence of obstruction, uvula midline. Mucous membranes moist. Neck: Trachea midline, no thyromegaly or masses palpated, and no cervical lymphadenopathy. Supple, full range of motion without nuchal rigidity, or vertebral point tenderness. No Meningismus. Chest/axilla: Normal chest wall appearance and motion. Nontender with no deformity. No lesions are appreciated. Cardiovascular: Regular rate and rhythm with a normal S1 and S2. No gallops, murmurs, or rubs. Normal PMI, no JVD. No pulse deficits. Respiratory: Lungs have equal breath sounds bilaterally, clear to auscultation and percussion. No rales, rhonchi or wheezes noted. No increased work of breathing, no retractions or nasal flaring. Back: No spinal tenderness. No costovertebral tenderness. Full range of motion. Skin: Warm, dry with normal turgor. Normal color with no rashes, no lesions, and no evidence of cellulitis. MS/ Extremity: Pulses equal, no cyanosis. Neurovascular intact. Full, normal range of motion. Neuro: Awake and alert, GCS 15, oriented to person, place, time, and situation. Cranial nerves II-XII grossly intact. Motor strength 5/5 in all extremities. Sensory grossly intact. Cerebellar exam normal. Normal gait. Psych: Awake, alert, with orientation to person, place and time. Behavior, mood, and affect are within normal limits. 20:26 Abdomen/GI: Inspection: abdomen appears normal, Bowel sounds: normal, Palpation: nontender, Liver: no appreciated palpable abnormalities, Hernia: not appreciated. Vital Signs: 19:43 BP 158 / 72; Pulse 84; Resp 18; Temp 98.6; Pulse Ox 97% ; Weight 86.18 kg; Height 5 ft. mg2 10 in. (177.80 cm); 22:30 BP 152 / 77; Pulse 70; Resp 16; Pulse Ox 95% on R/A; zb 19:43 Body Mass Index 27.26 (86.18 kg, 177.80 cm) mg2 MDM: 19:52 Patient medically screened. angel 20:29 Differential diagnosis: UTI, urinary retention. Data reviewed: vital signs, nurses [facility] notes, lab test result(s). 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 Counseling: I had a detailed discussion with the patient and/or guardian regarding: the historical points, exam findings, and any diagnostic results supporting the discharge/admit diagnosis, lab results. 01/24 20:25 Order name: CBC with Diff; Complete Time: 21:47 [facility] 01/24 20:25 Order name: Comprehensive Metabolic Panel [facility] 01/24 20:25 Order name: Urine Culture [facility] 01/24 21:26 Order name: Urine Dipstick--Ancillary (enter results) tt3 01/24 21:30 Order name: Comprehensive Metabolic Panel; Complete Time: 21:47 [facility] 01/24 21:59 Order name: Urine Dipstick-Ancillary [facility] 01/24 20:25 Order name: Urine Dipstick-Ancillary (obtain specimen); Complete Time: 21:27 [facility] 01/24 20:25 Order name: Bladder Irrigation; Complete Time: 20:39 [facility] 01/24 20:25 Order name: Bladder Scanner; Complete Time: 21:27 [facility] Administered Medications: 21:15 Drug: Rocephin 1 grams Route: IV; Rate: per protocol; Site: right antecubital; jd3 21:36 Drug: NS 0.9% 1000 ml Route: IV; Rate: 1 bolus; Site: right antecubital; jd3 Disposition: 01/25/20 21:49 Discharged to Home. Impression: Hematuria, Urinary tract infection, site not specified. - Condition is Stable. - Discharge Instructions: Hematuria, Adult, Urinary Tract Infection, Adult, Urinary Tract Infection, Adult, [id number]. - Prescriptions for Cipro 250 mg Oral Tablet - take 1 tablet by ORAL route every 12 hours; 6 tablet. Bactrim DS 800- 160 mg Oral Tablet - take 1 tablet by ORAL route every 12 hours for 7 days; 14 tablet. - Medication Reconciliation Form, Thank You Letter, Antibiotic Education, Prescription Opioid Use form. - Follow up: Private Physician; When: 2 - 3 days; Reason: Recheck today's complaints, Continuance of care, Re-evaluation by your physician. Follow up: Josesito aP MD; When: 1 - 2 days; Reason: Recheck today's complaints, Re-evaluation by your physician. - Problem is new. - Symptoms have improved. Signatures: Dispatcher [employer] EDRobe Crawford MD MD cha Davies, Jonathon RN RN Karthik Briseno RN RN mg2 Brown, Zipporah, RN RN zb Corrections: (The following items were deleted from the chart) 22:42 21:49 01/25/2020 21:49 Discharged to Home. Impression: Hematuria; Urinary tract zb infection, site not specified. Condition is Stable. Forms are Medication Reconciliation Form, Thank You Letter, Antibiotic Education, Prescription Opioid Use. Follow up: Private Physician; When: 2 - 3 days; Reason: Recheck today's complaints, Continuance of care, Re-evaluation by your physician. Follow up: Josesito Pa; When: 1 - 2 days; Reason: Recheck today's complaints, Re-evaluation by your physician. Problem is new. Symptoms have improved. angel
[2020-01-25 21:58] LABS: Urine Blood 3+ (NEG); Urine Glucose NEGATIVE (NEG); Urine Protein 3+ (NEG)
[2020-01-25] MEDS ORDERED: CIPROFLOXACIN HCL 500 MG TAB ONE (22:14)
[2020-01-25] MEDS ORDERED: TAMSULOSIN 0.4 MG SR CAP ONE (22:14)
== END 2020-01-25 22:42 | disposition home or self-care (01) ==
LOC: ER 19:26
DX: N39.0 Urinary tract infection, site not specified (principal); R31.9 Hematuria, unspecified; I10 Essential (primary) hypertension; E78.5 Hyperlipidemia, unspecified
CPT/HCPCS: 87088; 85025; 87086; 36415; 81003; 80053; 51700; 96374; 99284; J0696; J7030

== ENCOUNTER 2020-02-29 06:34 | Day surgery (SDC) | payer MEDICARE, OTHER ==
[2020-02-24 15:19] LABS: Absolute Lymphocytes (CBC) 1.5 K/uL (0.7-4.9); Basophils % 0.5 % (0-1.3); Lymphocytes % 18.8 % (15.3-44.8); MPV 9.8 fL (7.6-11.3); RBC Red Blood Cell Count 4.34 M/uL (4.33-5.43)
[2020-02-24 15:22] LABS: Protime INR 0.99
[2020-02-24 15:23] LABS: BUN Blood Urea Nitrogen 11 mg/dL (7-18); Bicarbonate 31 mmol/L (21-32); Glucose Level 107 mg/dL (74-106); Potassium 4.2 mmol/L (3.5-5.1); Sodium Level 139 mmol/L (136-145)
--- OUTSIDE RECORDS SUMMARY | 2020-02-29 06:42 | XMS REPORT | Continuity of Care Document ---
:1945 Author Organization [facility] t Address [address] [place] [address] Care Team Providers Name Role Phone JONO Primary Care Physician Unavailable Payers Payer Name Policy Type Policy Effective Date Expiration Date Sour ce Number AARP MEDICAREAARP [id number] 2020 MD Ohara rson MEDICARE 00:00:00 [id number] /02/2020-PresentMed icare Problems This patient has no known problems. Allergies, Adverse Reactions, Alerts This patient has no known allergies or adverse reactions. Social History Social Habit Start Date Stop Date Quantity Comments Source Sex Assigned At M MD Kelly Exposure to SARS-CoV-2 (event) Not sure MD Kelly Medications Ordered Filled Start Stop Current Ordering Indication Dosage Frequency Signature Comments Components Source Medication Medication Date Date Medication? Clinician (SIG) Name Name Bactrim Bactrim Yes Sachi [address] [facility] Tamsulosin Tamsulosin Yes Sachi [address] [facility] HCl HCl [facility] Amlodipine Amlodipine Yes Sachi [address] [facility] Besylate [facility] Repatha Repatha Yes Sachi as [facility] Cialis Cialis Yes Sachi [address] [facility] Procedures This patient has no known procedures. Encounters Start End Encounter Admission Attending Care Care Encounter Source Date/Time Date/Time Type Type Clinicians Facility Department ID 2020-02-23 2020-02-23 Outpatient [facility] [id number] [facility] 2020-02-08 2020-02-08 Outpatient [facility] [id number] [facility] 2020-02-07 2020-02-07 [facility] [id number] [facility] 2020-02-02 2020-02-02 Out[facility] [id number] [facility] 2020-01-07 2020-01-07 Out[facility] [id number] [facility] 2020-01-06 2020-01-06 Out[facility] [id number] [facility] 2019-12-28 2019-12-28 Outpatient [facility] [id number] [facility] 2019-12-22 2019-12-22 Outpatient [facility] [id number] [facility] 2019-11-30 2019-11-30 Outpatient [facility] [id number] [facility] 2019-11-15 2019-11-15 Outpatient [facility] [id number] [facility] 2019-11-02 2019-11-02 [facility] [id number] [facility] 16[facility]19[facility]00 16:19:00 [facility] 2019-10-29 2019-10-29 [facility] [id number] [facility] 08:15[facility]00 08:15:00 t [facility] 2019-10-12 2019-10-12 [facility] [id number] [facility] 16:13:00 16:13:00 t [facility] Out[facility] Clin[facility] 2019-10-11 2019-10-11 [facility] [id number] [facility] 12:50:00 12:50:00 t Special[facility] Out[facility] ent Clinics 2019-10-05 2019-10-05 [facility] [id number] 10:45:00 10:45:00 t Special[facility] Out[facility] ent Clinics 2019-09-29 2019-09-29 [facility] [id number] 14:15:00 14:15:00 t Special[facility] Out[facility] ent Clin[facility] 2019-09-20 2019-09-20 [facility] [place] [id number] 15:50:00 15:50:00 t Special[facility] l Clinic Outpat[facility] ent Clinics 2019-09-15 2019-09-15 [facility] [id number] [facility] 15:56:00 15:56:00 t Special[facility] l Clinic Outpat[facility] ent Clinics 2019-08-16 2019-08-16 [facility] [id number] 08:45:00 08:45:00 t Special[facility] Clinic l [facility] Outpat[facility] ent Clinics 2019-07-22 2019-07-22 [facility] [id number] 08:30:00 08:30:00 t Specialty/[facility]Urology Clinic l Clinic [facility] 2019-06-10 2019-06-10 [facility] [id number] [facility] 08:30:00 08:30:00 t Special[facility] 2019-06-08 2019-06-08 [facility] [id number] [facility] 10:23:00 10:23:00 t Specialty/[facility] - Specialty [facility] a /Urology Clinic l [facility] ent [facility] Results This patient has no known results.
--- OUTSIDE RECORDS SUMMARY | 2020-02-29 06:43 | XMS REPORT ---
:1945 Author Organization [facility] Address 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 [address], Josesito Pa Specialty/[place] [address] IMMUNIZATIONS No Information SOCIAL HISTORY Tobacco Use: [...] Start Date End Date Status Frequency, Duration) Tamsulosin HCl 0.4 MG 1 capsule Orally Once a Active day for 90 Amlodipine Besylate 5 MG 1 tablet Orally Once a Active day Repatha 140mg/ml as directed SQ Acti ve Cialis 20 MG 1 tablet Orally as Acti ve directed for 30 day(s) Gemcitabine HCl 2 GM as directed Intravenous Dec, Active Bactrim 400-80 MG 1 tablet Orally [...] TREATMENT Next Appt Details Provider Name:Josesito Pa, 09:00:00 AM, [address] [place] [address], [id number], Insurance Providers Payer Name Payer Address Payer Insured Patient Coverage Cover age End Phone Name Relationship to Start Date Osei e Insured [employer] [address] [address] [phone] Trino Garcia [facility] [address] [phone]
[2020-02-29] MEDS ORDERED: Ringers Lactate 1,000 ML IV ONE (07:08)
[2020-02-29] MEDS ORDERED: FENTANYL CITR 100 MCG/2 ML ONE (07:32)
[2020-02-29] MEDS ORDERED: propofoL 200 MG/20 ML VIAL IV ONE (07:32)
[2020-02-29] MEDS ORDERED: LIDOCAINE 1% MPF 5 ML VIAL ONE (07:32)
[2020-02-29] MEDS: CEFAZOLIN/SWI 2gm 2 GM/20 ML SYR ONE ×2 (07:45→07:54)
[2020-02-29] MEDS ORDERED: KETOROLAC 30 MG/ML INJ ONE (08:09)
[2020-02-29] MEDS ORDERED: ONDANSETRON 4 MG/2 ML VIAL ONE (08:13)
--- NOTE | 2020-02-29 09:18 | OP ---
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 Postoperative Diagnosis: High-grade muscle invasive urothelial carcinoma of the bladder involving th e anterior dome region. Principle Procedures: 1.Examination under anesthesia. 2.Cystoscopy. 3.Random bladder biopsies and fulguration. Indication For Procedure: Mr. Garcia presented to the Urology Clinic having previously undergone a c ystoscopy and bladder biopsy with Dr. Nava which revealed pathologic stage T1 urothelial carcinoma. Because of the risk of occult muscle invasive disease, he underwent repeat resection which revealed muscle invasive disease. He was subsequently arranged for a pelvic MRI, which did suggest deep inva renu into the perivesical fat anteriorly and so he was scheduled for repeat staging cystoscopy with e xamination under anesthesia and random bladder biopsies because the tumor was approximately 2-3 cm in diameter and isolated to the anterior wall of the bladder near the dome which would be amenable to a partial cystectomy. He thus presents today for that evaluation. Procedure In Detail: The patient was consented in the preoperative holding area before being transfe rred to the operative suite where general anesthesia using an LMA was induced. He was given Ancef 2 g IV antimicrobial prophylaxis and pneumo boots were provided for DVT prophylaxis. He was placed in the lithotomy position, padded and secured to the table appropriately. An examination was then perfo rmed. Performing a bimanual examination using 1 then 2 fingers in his rectum and palpating in the guzman prapubic region, an attempt to feel the mass was made. The mass was not independently ballotable at this time nor was there any evidence of bladder fixation. As a result, we then prepped the patient's genitalia and draped in a standard fashion. A 22-Qatari rigid cystoscope was then used to traverse the urethra and into the bladder with ease. The bladder was then surveyed in its entirety, and the a sarah of prior tumor resection in the anterior region of the bladder wall was identified. There was fi brinous debris from the intravesical gemcitabine provided the last time at the site of resection. Th ere was no papillary tumor growth into the bladder at this point. At the periphery of the resection, there was nodular erythema reminiscent of perhaps residual tumor invasion. The remainder of the milady dder was free of any papillary mucosal lesion; so, I then performed random bladder biopsies at the sterior wall of the bladder, the trigone, the right lateral wall, and the left lateral wall. The spe cimens were sent for pathologic analysis. I then distended his bladder and again performed a bimanua l examination to feel over the visible portion of the tumor in the suprapubic region. That area was independently ballotable and mobile with direct visualization of the tumor without any nodular mass p alpable or evidence of fixation. As a result, his bladder was decompressed of fluid and urine, and h e was taken out of the lithotomy position. He was then awakened from general anesthesia before being transferred to a stretcher and then to the recovery room in good condition. Of note, following the random bladder biopsies taken above, Bugbee electrocautery fulguration of each of the sites was perfo rmed using a cautery setting of 30 with his bladder decompressed to confirm absence of ongoing bleedi ng. Complications: None. Discharge Disposition: He will follow up in the Urology Clinic within the next 2 weeks for discussio n of the biopsy pathology. Given the favorable examination under anesthesia performed today, if the biopsy pathology is similarly negative for malignancy, he would be a good candidate for partial cyste ctomy as previously discussed. VIANCA/JOSE Voice ID: [id number] Report ID: [id number]
[2020-02-29 09:41] VITALS: BP 134/68; TEMP 97.2; O2SAT 96
== END 2020-02-29 09:55 | disposition home or self-care (01) ==
LOC: OR 06:34
PROVIDERS: ATTEND Urology
PROC: 0TBB8ZX Excision of Bladder, Via Natural or Artificial Opening Endoscopic, Diagnostic (ICD-10-PCS; principal; 2020-02-29 07:30)
DX: C67.3 Malignant neoplasm of anterior wall of bladder (principal); C67.9 Malignant neoplasm of bladder, unspecified; Z20.822 Contact with and (suspected) exposure to COVID-19
CPT/HCPCS: 85025; 87086; 80048; 36415; 85610; 88305; 85730; 52204; U0002; J2704; J3010; J0690; J7120; J2405; 87088

== ENCOUNTER 2020-06-14 17:19 | Emergency (ER) | payer OTHER ==
--- OUTSIDE RECORDS SUMMARY | 2020-06-14 17:27 | XMS REPORT | Continuity of Care Document ---
:1945 Author Organization [facility] t Address [address] [place] [address] Care Team Providers Name Role Phone JONO Primary Care Physician Unavailable SYSTEM, NOT IN Attending Clinician Unavailable JONO Attending Clinician Unavailable Todd MCKEON M Attending Clinician Unavailable Donald MCKEON Attending Clinician Unavailable Eddie MCKEON, N Attending Clinician Unavailable Jono CORBIN Attending Clinician Jannie MTZ P Attending Clinician Yan Wyatt RN Attending Clinician Unavailable Carmen Rodriguez NP Attending Clinician Carmen RODRIGUEZ Attending Clinician Unavailable Noel CORBIN Attending Clinician Cassia MARSHALL Attending Clinician Unavailable Mike GUTIERREZ, Cassia Attending Clinician Beatrice Rossi MA Attending Clinician Unavailable Carmen GEORGE III Attending Clinician Unavailable Carmen George MD Attending Clinician Rahul GALO Attending Clinician SHANIQUA Attending Clinician Unavailable Shaniqua CORBIN Attending Clinician Jeniffer MCKEON, Falguni Attending Clinician Unavailable Max CORBIN, Dontrell Attending Clinician Dontrell SANTANA Attending Clinician Unavailable Kadie CORBIN Attending Clinician KADIE Attending Clinician Unavailable Kole MCKEON, K Attending Clinician Unavailable Gwendolyn Allison MA Attending Clinician Unavailable Carlos MCKEON, C Attending Clinician Unavailable Meggan GALO Attending Clinician Angelina CORBIN, Q Attending Clinician Sara MCKEON, S Attending Clinician Unavailable Femi COLE M Attending Clinician Janey CORBIN Attending Clinician JANEY Attending Clinician Unavailable Neeraj Balbuena CRNA, A Attending Clinician Unavailable Charlie MCKEON Attending Clinician Unavailable Alberto CORBIN, G Attending Clinician Tara CORBIN, S. Attending Clinician JONO Admitting Clinician Unavailable Payers Payer Name Policy Type Policy Number Effective Date Expiration Date Jhoan kuhn A[employer] MEDICARE [id number] 2020 COMPLETE 00:00:00 Problems Condition Condition Condition Status Onset Resolution Last Treating Co mments Source Name Details Category Date Date Treatment Clinician Date Severe Severe Disease Active protein-ca protein-ca 4-20 An hoang whiting 00:00: n malnutriti malnutriti 00 on on Cellulitis Cellulitis Disease Active Overview : 4-13 Surroundi Anderso 00:00: ng BINU n 00 drain insertion site. 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 Lipids followed by outside cardiolog ist. Preoperati Preoperati Disease Active Last M D ve ve 3-10 Assessmen Anderso cardiovasc cardiovasc 00:00: t & Plan: n ular ular 00 Preoperat examinatio examinatio carla n n cardiovas cular evaluatio n prior to cystectom y. Patient has hypertens ion and smoking history but no history of myocardia l infarctio n, TIA/CVA. He has good exertiona l capacity (I personall y climbed 2 flights of stairs with him). He had what sounds like classic musculosk eletal chest pain 3 weeks ago. Will repeat EKG today in clinic and if unchanged , no further cardiac workup is needed.Ruddy araiza is low risk for major adverse cardiovas cular events in the periopera tive period. Malignant Malignant Disease Active Overview: neoplasm neoplasm 03-21 Added Hemant o of of 00:00: automatic n overlappin overlappin 00 ally from g sites of g sites of request bladder bladder for surgery Bladder Bladder Disease Active Overview: cancer cancer 03-21 Added Anderso 00:00: automatic n 00 ally from request for surgery Hypertensi Hypertensi Disease Active Last M D on on Assessmen Anderso t & Plan: n BP is near goal, continue amlodipin e. Chronic Chronic Disease Active obstructiv obstructiv An derso e e n pulmonary pulmonary disease disease Anemia Anemia Disease Resolve 2020-06-01 2020-06-01 following following d 05-19 00:00:00 14:11:27 Anderso acute acute 00:00: n postoperat postoperat 00 carla blood carla blood loss loss Allergies, Adverse Reactions, Alerts This patient has no known allergies or adverse reactions. Family History Family Member Diagnosis Comments Start Date Stop Date Source Family member -Other cancer MD Valdivia son Social History Social Habit Start Date Stop Date Quantity Comments Source Sex Assigned At [facility] History of tobacco Current smoker MD Kelly use Exposure to Not sure MD Kelly SARS-CoV-2 (event) Cigarettes smoked 2020-05-23 2020-05-23 MD Lev doshi current (pack per 00:00:00 00:00:00 day) - Reported Cigarette 2020-05-23 2020-05-23 MD Kelly pack-years 00:00:00 00:00:00 Tobacco use and 2020-05-23 2020-05-23 Never used MD Marcos on exposure 00:00:00 00:00:00 Alcohol intake 2020-05-23 2020-05-23 Lifetime MD Lakeshia vela 00:00:00 00:00:00 non-drinker (finding) History [facility] 2020-04-10 2020-04-10 16 MD Kelly Education 00:00:00 00:00:[address] [facility] 2020-03-28 2020-03-28 1 MD Kelly Alcohol Frequency 00:00:00 00:00:[address] [facility] 2020-03-28 2020-03-28 99 MD Kelly Alcohol Std Drinks 00:00:00 00:00:[address] [facility] 2020-03-28 2020-03-28 1 MD Kelly Alcohol Binge 00:00:00 00:00:00 Smoking Status Start Date Stop Date Source Former smoker 2020-05-23 00:00:00 2020-05-23 00:00:00 MD Skip donald Medications Ordered Filled Start Stop Current Ordering Indication Dosage Frequency Signature Comments Components Source Medication Medication Date Date Medication? Clinician (SIG) Name Name apixaban 2020- Yes Recovery 2.5mg Take 1 M D (Eliquis) 4-15 05-03 following tablet An derso 2.5 mg 00:00: 04:59 surgery (2.5 mg) n tablet 00 :00 by mouth every 12 (twelve) hours for 17 days. evolocumab Yes hypercholes Every MD (Repatha 4-14 terolemia other week Anderso SureClick) 19:16: n 140 mg/mL 35 pnij acetaminoph Yes 500mg Take 500 M D en 4-14 mg by Anderso (TYLENOL) 19:16: mouth as n 500 mg 35 needed for tablet mild pain. methocarbam Yes Recovery 500mg Take 1 MD ol 4-14 following tablet Anderso (ROBAXIN) 00:00: surgery (500 mg) n 500 mg 00 by mouth tablet every 8 (eight) hours as needed (muscle discomfort /soreness) . traMADol Yes Recovery 50mg Take 1 MD (ULTRAM) 50 4-14 following tablet (50 Anderso mg tablet 00:00: surgery mg) by n 00 mouth every 6 (six) hours as needed for severe pain. cephalexin 2020- No Cellulitis, 500mg Take 1 MD (KEFLEX) 4-14 -19 not capsule Anderso 500 mg 00:00: 04:59 otherwise (500 mg) n capsule 00 :00 specified by mouth every 8 (eight) hours for 12 doses. simethicone Yes Recovery 80mg Chew 1 MD (MYLICON) 4-13 following tablet (80 Anderso 80 mg 00:00: surgery mg) 4 n chewable 00 (four) tablet times a day as needed (abdominal discomfort /bloating) . pantoprazol 2020- No Recovery 40mg Take 1 MD e 4-13 04-20 following tablet (40 And erso (PROTONIX) 00:00: 04:59 surgery mg) by n 40 mg EC 00 :00 mouth tablet every morning before breakfast for 5 days. apixaban 2020- No Recovery 2.5mg Take 1 M D (Eliquis) 05-26 04-12 following tablet An derso 2.5 mg 00:00: 00:00 surgery (2.5 mg) n tablet 00 :00 by mouth every 12 (twelve) hours for 26 days. docusate Yes Recovery 100mg Take 1 MD sodium 4-06 following capsule Skip so (COLACE) 00:00: surgery (100 mg) n 100 mg 00 by mouth capsule twice daily. Hold for loose stool. senna Yes Recovery 1{tbl} Take 1 MD (SENOKOT) 4-06 following tablet by Anderso 8.6 mg 00:00: surgery mouth 2 n tablet 00 (two) times a day as needed for constipati on. tamsulosin 2020- No TAKE 1 MD (FLOMAX) 1-05 04-14 CAPSULE BY Lev rso 0.4 mg 24 00:00: 00:00 ORAL ROUTE n hr capsule 00 :00 EVERY DAY 1/2 HOUR FOLLOWING THE SAME MEAL EACH DAY amLODIPine Yes TAKE 1 MD (NORVASC) 5 8-31 TABLET Hemant o mg tablet 00:00: EVERY DAY n 00 Bactrim Bactrim Yes Sachi [address] [facility] Tamsulosin Tamsulosin Yes Sachi [address] [facility] [address] HCl [facility] Amlodipine Amlodipine Yes Sachi [address] [facility] [address] Besylate Bes[facility] Repathdorothy Chamorroatha Yes Sachi as [facility] Nupur Espitia Yes Sachi [address] [facility] Immunizations Ordered Immunization Filled Immunization Date Status Commen ts Source Name Name Pfizer SARS-CoV-2 2020-05-06 Completed MD Ohara rson Vaccination 00:00:00 Pfizer SARS-CoV-2 2020-04-14 Completed MD Ohara rson Vaccination 00:00:00 Vital Signs Vital Name Observation Time Observation Value Comments Source WEIGHT 2020-05-31 03:42:52 81.5 kg HEIGHT 2020-05-23 16:14:04 177.8 cm WEIGHT 2020-05-31 03:42:52 81.5 kg HEIGHT 2020-05-23 16:14:04 177.8 cm WEIGHT 2020-05-15 13:26:00 86.7 kg WEIGHT 2020-05-15 13:26:00 86.7 kg WEIGHT 2020-04-26 09:51:35 89 kg WEIGHT 2020-04-26 09:51:35 89 kg HEIGHT 2020-04-25 08:18:00 177.8 cm WEIGHT 2020-04-25 08:18:00 88.1 kg HEIGHT 2020-04-25 08:18:00 177.8 cm WEIGHT 2020-04-25 08:18:00 88.1 kg WEIGHT 2020-04-10 12:23:03 88 kg WEIGHT 2020-04-10 12:23:03 88 kg HEIGHT 2020-03-28 07:29:00 177.8 cm WEIGHT 2020-03-28 07:29:00 88.5 kg HEIGHT 2020-03-28 07:29:00 177.8 cm WEIGHT 2020-03-28 07:29:00 88.5 kg Systolic blood pressure 2020-05-31 13:53:53 133 mm[Hg] MD Kelly Diastolic blood pressure 2020-05-31 13:53:53 71 mm[Hg] MD Kelly Heart rate 2020-05-31 13:53:53 90 /min MD Valdivia son Body temperature 2020-05-31 13:53:53 37.11 Eli MD Dorothy beth Respiratory rate 2020-05-31 13:53:53 16 /min MD Dorothy beth Oxygen saturation in 2020-05-31 13:53:53 95 /min MD Kelly Arterial blood by Pulse oximetry Body weight 2020-05-31 08:42:52 81.5 kg MD Skip donald BMI 2020-05-31 08:42:52 25.78 kg/m2 MD Skip donald Body height 2020-05-23 21:14:04 177.8 cm MD Skip donald Procedures Procedure Date / Time Performed Performing Clinician Sourc e CALCIUM IONIZED, VENOUS 2020-05-31 09:52:00 Feliciano Chavarria MD BASIC METABOLIC PANEL, 2020-05-31 09:04:00 Makeda Rodriguez CALCIUM IONIZED COMPLETE BLOOD COUNT W/ 2020-05-31 09:04:00 Makeda Rodriguez MD DIFFERENTIAL MAGNESIUM LEVEL 2020-05-31 09:04:00 Makeda Rodriguez MD [facility] PHOSPHORUS LEVEL 2020-05-31 09:04:00 Makeda Rodriguez MD Lev rs GLUCOSE LEVEL 2020-05-31 09:04:00 Feliciano Chavarira MD BLOOD UREA NITROGEN 2020-05-31 09:04:00 [facility] ELECTROLYTE PANEL 2020-05-31 09:04:00 Feliciano Chavarria MD SERUM CREATININE 2020-05-31 09:04:00 Feliciano Chavarria MD .GLOMERULAR FILTRATION RATE 2020-05-31 09:04:00 Feliciano Chavarria MD Results CBC 2020-05-31 09:04:00 Feliicano Chavarria MD MANUAL DIFFERENTIAL 2020-05-31 09:04:00 Feliciano Chavarria MD BASIC METABOLIC PANEL, 2020-05-30 07:34:00 Makeda Rodriguez CALCIUM IONIZED COMPLETE BLOOD COUNT W/ 2020-05-30 07:34:00 Makeda Rodriguez MD DIFFERENTIAL MAGNESIUM LEVEL 2020-05-30 07:34:00 Makeda Rodriguez MD [facility] PHOSPHORUS LEVEL 2020-05-30 07:34:00 Makeda Rodrigueze rson GLUCOSE LEVEL 2020-05-30 07:34:00 Feliciano Chavarria MD BLOOD UREA NITROGEN 2020-05-30 07:34:00 Feliciano Chavarria MD Skip son ELECTROLYTE PANEL 2020-05-30 07:34:00 Feliciano Chavarria MD SERUM CREATININE 2020-05-30 07:34:00 Feliciano Chavarria MD .GLOMERULAR FILTRATION RATE 2020-05-30 07:34:00 Feliciano Chavarria MD CALCIUM IONIZED, VENOUS 2020-05-30 07:34:00 Feliciano Chavarria MD nderson Results CBC 2020-05-30 07:34:00 Feliciano Chavarria MD MANUAL DIFFERENTIAL 2020-05-30 07:34:00 Feliciano Chavarria MD TYPE AND SCREEN 2020-05-29 07:49:00 Makeda Rodriguez MD BASIC METABOLIC PANEL, 2020-05-29 07:49:00 Makeda Rodriguez CALCIUM IONIZED COMPLETE BLOOD COUNT W/ 2020-05-29 07:49:00 Makeda Rodriguez MD DIFFERENTIAL MAGNESIUM LEVEL 2020-05-29 07:49:00 Makeda Rodriguez MD Skip son PHOSPHORUS LEVEL 2020-05-29 07:49:00 Makeda Rodriguez MD Lev rson ABORH 2020-05-29 07:49:00 Feliciano Chavarria MD ANTIBODY SCREEN 2020-05-29 07:49:00 Feliciano Chavarria MD GLUCOSE LEVEL 2020-05-29 07:49:00 Feliciano Chavarria MD BLOOD UREA NITROGEN 2020-05-29 07:49:00 Feliciano Chavarria MD Skip son ELECTROLYTE PANEL 2020-05-29 07:49:00 Feliciano Chavarria MD n SERUM CREATININE 2020-05-29 07:49:00 Feliciano Chavarria MD .GLOMERULAR FILTRATION RATE 2020-05-29 07:49:00 Feliciano Chavarria MD CALCIUM IONIZED, VENOUS 2020-05-29 07:49:00 Feliciano Chavarria MD nderson Results CBC 2020-05-29 07:49:00 Feliciano Chavarria MD MANUAL DIFFERENTIAL 2020-05-29 07:49:00 Feliciano Chavarria MD Skipmarimar donald CLOT EXPIRATION DATE 2020-05-29 07:49:00 Feliciano Chavarria MD rson TMP INTERPRETATION ANTIBODY 2020-05-29 07:49:00 Feliciano Chavarria MD SCREEN NEGATIVE BASIC METABOLIC PANEL, 2020-05-28 08:54:00 Makeda Rodriguez CALCIUM IONIZED COMPLETE BLOOD COUNT W/ 2020-05-28 08:54:00 Makeda Rodriguez MD DIFFERENTIAL MAGNESIUM LEVEL 2020-05-28 08:54:00 Makeda Rodriguez MD Skip son PHOSPHORUS LEVEL 2020-05-28 08:54:00 Makeda Rodriguez MD Lev rson GLUCOSE LEVEL 2020-05-28 08:54:00 Feliciano Chavarria MD BLOOD UREA NITROGEN 2020-05-28 08:54:00 Feliciano Chavarria MD Skip son ELECTROLYTE PANEL 2020-05-28 08:54:00 Feliciano Chavarria MD SERUM CREATININE 2020-05-28 08:54:00 Feliciano Chavarria MD .GLOMERULAR FILTRATION RATE 2020-05-28 08:54:00 Feliciano Chavarria MD CALCIUM IONIZED, VENOUS 2020-05-28 08:54:00 Feliciano Chavarria MDrscaroline Results CBC 2020-05-28 08:54:00 Feliciano Chavarria MD MANUAL DIFFERENTIAL 2020-05-28 08:54:00 Feliciano Chavarria MD BASIC METABOLIC PANEL, 2020-05-27 07:45:00 Makeda Rodriguez CALCIUM IONIZED COMPLETE BLOOD COUNT W/ 2020-05-27 07:45:00 Makeda Rodriguez MD DIFFERENTIAL MAGNESIUM LEVEL 2020-05-27 07:45:00 Makeda Rodriguez MD Skip son PHOSPHORUS LEVEL 2020-05-27 07:45:00 Makeda Rodriguez MD Lev rson GLUCOSE LEVEL 2020-05-27 07:45:00 Feliciano Chavarria MD BLOOD UREA NITROGEN 2020-05-27 07:45:00 Feliciano Chavarria MD Skip son ELECTROLYTE PANEL 2020-05-27 07:45:00 Feliciano Chavarria MD SERUM CREATININE 2020-05-27 07:45:00 Feliciano Chavarria MD .GLOMERULAR FILTRATION RATE 2020-05-27 07:45:00 Feliciano Chavarria MD CALCIUM IONIZED, VENOUS 2020-05-27 07:45:00 Jono, Feliciano De La Cruz nderson Results CBC 2020-05-27 07:45:00 Feliciano Chavarria MD MANUAL DIFFERENTIAL 2020-05-27 07:45:00 Feliciano Chavarria MD Skip son TRIGLYCERIDES 2020-05-26 07:55:00 Van Beauchamp MD HEPATIC FUNCTION PANEL 2020-05-26 07:55:00 Quynh, Van butler C REACTIVE PROTEIN 2020-05-26 07:55:00 Van Beauchamp MD on PREALBUMIN 2020-05-26 07:55:00 Van Beauchamp MD TYPE AND SCREEN 2020-05-26 07:55:00 Makeda Rodriguez MD BASIC METABOLIC PANEL, 2020-05-26 07:55:00 Makeda Rodriguez CALCIUM IONIZED COMPLETE BLOOD COUNT W/ 2020-05-26 07:55:00 Makeda Rodriguez MD DIFFERENTIAL MAGNESIUM LEVEL 2020-05-26 07:55:00 Makeda Rodriguez MD Skip son PHOSPHORUS LEVEL 2020-05-26 07:55:00 Makeda Rodriguez MD Lev rson ALBUMIN LEVEL 2020-05-26 07:55:00 Feliciano Chavarria MD ALKALINE PHOSPHATASE 2020-05-26 07:55:00 Jono, Feliciano Ohara rscaroline ALANINE AMINOTRANSFERASE 2020-05-26 07:55:00 JonoFeliciano MD ASPARTATE AMINOTRANSFERASE 2020-05-26 07:55:00 Feliciano Chavarria TOTAL PROTEIN 2020-05-26 07:55:00 Feliciano Chavarria MD FRACTIONATED BILIRUBIN 2020-05-26 07:55:00 Feliciano Chavarria MD derson ABORH 2020-05-26 07:55:00 Feliciano Chavarria MD ANTIBODY SCREEN 2020-05-26 07:55:00 Feliciano Chavarria MD GLUCOSE LEVEL 2020-05-26 07:55:00 Feliciano Chavarria MD BLOOD UREA NITROGEN 2020-05-26 07:55:00 Feliciano Chavarria MD Skip son ELECTROLYTE PANEL 2020-05-26 07:55:00 Feliciano Chavarria MD SERUM CREATININE 2020-05-26 07:55:00 Feliciano Chavarria MD .GLOMERULAR FILTRATION RATE 2020-05-26 07:55:00 Feliciano Chavarria MD CALCIUM IONIZED, VENOUS 2020-05-26 07:55:00 Feliciano Chavarria MD nderson Results CBC 2020-05-26 07:55:00 Feliciano Chavarria MD MANUAL DIFFERENTIAL 2020-05-26 07:55:00 Feliciano Chavarria MD CLOT EXPIRATION DATE 2020-05-26 07:55:00 Feliciano Chavarria MD TMP INTERPRETATION ANTIBODY 2020-05-26 07:55:00 Feliciano Chavarria MD SCREEN NEGATIVE VERIFY CATHETER TIP PLACEMENT 2020-05-25 22:16:23 Mei Mansfield MD CREATININE BODY FLUID 2020-05-25 22:03:00 Karlos Archuleta MD B XR CHEST 2 VW POST IMPLANT 2020-05-25 20:07:27 Makeda Rodriguez MD XR ABDOMEN AP 2020-05-25 20:05:36 Karlos Archuleta XR ABDOMEN 1 VW PORTABLE 2020-05-25 15:50:15 Karlos Archuleta MD B BASIC METABOLIC PANEL, 2020-05-25 08:01:00 Makeda Rodriguez CALCIUM IONIZED COMPLETE BLOOD COUNT W/ 2020-05-25 08:01:00 Makeda Rodriguez MD DIFFERENTIAL MAGNESIUM LEVEL 2020-05-25 08:01:00 Makeda Rodriguez MD Skipmarimar donald PHOSPHORUS LEVEL 2020-05-25 08:01:00 Makeda Rodriguez MD rscaroline GLUCOSE LEVEL 2020-05-25 08:01:00 Feliciano Chavarria MD BLOOD UREA NITROGEN 2020-05-25 08:01:00 Feliciano Chavarria MD Skip son ELECTROLYTE PANEL 2020-05-25 08:01:00 Feliciano Chavarria MD SERUM CREATININE 2020-05-25 08:01:00 Feliciano Chavarria MD .GLOMERULAR FILTRATION RATE 2020-05-25 08:01:00 Feliciano Chavarria MD CALCIUM IONIZED, VENOUS 2020-05-25 08:01:00 Feliciano Chavarria MD nderson Results CBC 2020-05-25 08:01:00 Feliciano Chavarria MD MANUAL DIFFERENTIAL 2020-05-25 08:01:00 Feliciano Chavarria MD Skip son OSCILLATORY PEP 2020-05-24 13:00:13 Makeda Rodriguez MD Skip son XR ABDOMEN 2 VW AP W UPRIGHT 2020-05-24 11:23:24 Paula Rodriguez MD AND OR DECUBITUS BASIC METABOLIC PANEL, 2020-05-24 07:38:00 Makeda Rodriguez CALCIUM IONIZED COMPLETE BLOOD COUNT W/ 2020-05-24 07:38:00 Makeda Rodriguez MD DIFFERENTIAL MAGNESIUM LEVEL 2020-05-24 07:38:00 Makeda Rodriguez MD Skip son PHOSPHORUS LEVEL 2020-05-24 07:38:00 Makeda Rodriguez MD Lev rson GLUCOSE LEVEL 2020-05-24 07:38:00 Makeda Rodriguez MD Skip son BLOOD UREA NITROGEN 2020-05-24 07:38:00 Makeda Rodriguez MD nderson ELECTROLYTE PANEL 2020-05-24 07:38:00 Makeda Rodriguez MD And erson SERUM CREATININE 2020-05-24 07:38:00 Makeda Rodriguez MD Lev rson .GLOMERULAR FILTRATION RATE 2020-05-24 07:38:00 Ana Rodriguez MD CALCIUM IONIZED, VENOUS 2020-05-24 07:38:00 Makeda Rodriguez MD Results CBC 2020-05-24 07:38:00 Makeda Rodriguez MD Skip son MANUAL DIFFERENTIAL 2020-05-24 07:38:00 Makeda Rodriguez MD nderson OSCILLATORY PEP 2020-05-24 07:00:24 Makeda Rodriguez MD Skip son OSCILLATORY PEP 2020-05-24 01:00:21 Makeda Rodriguez MD Skip son EKG, 12-LEAD (PORTABLE) 2020-05-24 00:00:00 Karlos Archuleta MD B OSCILLATORY PEP 2020-05-23 19:01:55 [facility]akeda [facility] OSCILLATORY PEP 2020-05-23 13:00:15 Makeda Rodriguez [facility] TYPE AND SCREEN 2020-05-23 07:45:00 Makeda Rodriguez [facility] BASIC METABOLIC PANEL, 2020-05-23 07:45:00 Makeda Rodriguez CALCIUM IONIZED COMPLETE BLOOD COUNT W/ 2020-05-23 07:45:00 Makeda Rodriguez MD DIFFERENTIAL MAGNESIUM LEVEL 2020-05-23 07:45:00 Makeda Rodriguez [facility] PHOSPHORUS LEVEL 2020-05-23 07:45:00 Makeda Rodriguez MD Lev rson ABORH 2020-05-23 07:45:00 Makeda Rodriguez [facility] ANTIBODY SCREEN 2020-05-23 07:45:00 Makeda Rodriguez [facility] GLUCOSE LEVEL 2020-05-23 07:45:00 Makeda Rodriguez [facility] BLOOD UREA NITROGEN 2020-05-23 07:45:00 Makeda Rodriguez MD ELECTROLYTE PANEL 2020-05-23 07:45:00 Makeda Rodriguez MD And ers SERUM CREATININE 2020-05-23 07:45:00 Makeda Rodriguez MD Lev rson .GLOMERULAR FILTRATION RATE 2020-05-23 07:45:00 Ana Rodriguez MD CALCIUM IONIZED, VENOUS 2020-05-23 07:45:00 Makeda Rodriguez MD Results CBC 2020-05-23 07:45:00 Makeda Rodriguez [facility] MANUAL DIFFERENTIAL 2020-05-23 07:45:00 Makeda Rodriguez MD TMP INTERPRETATION ANTIBODY 2020-05-23 07:45:00 Ana Rodriguez MD SCREEN NEGATIVE CLOT EXPIRATION DATE 2020-05-23 07:45:00 Makeda Rodriguez MD OSCILLATORY PEP 2020-05-23 07:00:21 Makeda Rodriguez [facility] HEMATOCRIT 2020-05-23 01:40:00 Makeda Rodriguez MD Skip son HEMOGLOBIN 2020-05-23 01:40:00 Makeda Rodriguez MD Skip son OSCILLATORY PEP 2020-05-23 01:00:22 Makeda Rodriguez MD Skip shabana XR ABDOMEN 1 VW PORTABLE 2020-05-22 21:40:55 Makeda Rodriguez MD Robin OSCILLATORY PEP 2020-05-22 19:01:34 Makeda Rodriguez MD Skip son HEMOGLOBIN 2020-05-22 17:51:00 Makeda Rodriguez MD Skip son HEMATOCRIT 2020-05-22 17:51:00 Makeda Rodriguez MD Skip shabana POC GLUCOSE SCREEN 2020-05-22 10:17:00 Feliciano Chavarria MD on ASPARTATE AMINOTRANSFERASE 2020-05-22 08:02:00 Teddy Melton MD ALANINE AMINOTRANSFERASE 2020-05-22 08:02:00 Teddy Melton MD FRACTIONATED BILIRUBIN 2020-05-22 08:02:00 Teddy Melton MD nderson LACTATE DEHYDROGENASE 2020-05-22 08:02:00 Teddy Melton MD derson ALKALINE PHOSPHATASE 2020-05-22 08:02:00 Teddy Melton MD And erson ALBUMIN LEVEL 2020-05-22 08:02:00 Teddy Melton MD MAGNESIUM LEVEL 2020-05-22 08:02:00 Teddy Melton MD PHOSPHORUS LEVEL 2020-05-22 08:02:00 Teddy Melton MD Anderso n COMPLETE BLOOD COUNT W/ 2020-05-22 08:02:00 Teddy Melton MD DIFFERENTIAL CALCIUM IONIZED, VENOUS 2020-05-22 08:02:00 Teddy Melton MD BLOOD UREA NITROGEN 2020-05-22 08:02:00 Feliciano Chavarria MD [facility] CARBON DIOXIDE LEVEL 2020-05-22 08:02:00 Feliciano Chavarria MD Lev rson CHLORIDE LEVEL 2020-05-22 08:02:00 Feliciano Chavarria MD SERUM CREATININE 2020-05-22 08:02:00 Feliciano Chavarria MD GLUCOSE, RANDOM 2020-05-22 08:02:00 Feliciano Chavarria MD POTASSIUM LEVEL 2020-05-22 08:02:00 Feliciano Chavarria MD SODIUM LEVEL 2020-05-22 08:02:00 Feliciano Chavarria MD SERUM CREATININE 2020-05-22 08:02:00 Feliciano Chavarria MD .GLOMERULAR FILTRATION RATE 2020-05-22 08:02:00 Feliciano Chavarria MD Results CBC 2020-05-22 08:02:00 Teddy Melton MD MANUAL DIFFERENTIAL 2020-05-22 08:02:00 Teddy Melton MD rson ANION GAP 2020-05-22 08:02:00 Feliciano Chavarria MD POC GLUCOSE SCREEN 2020-05-22 04:41:00 Feliciano Chavarria MD on VRE CULTURE 2020-05-22 02:30:00 Teddy Melton MD OSCILLATORY PEP 2020-05-22 01:00:26 Makeda Rodriguez MD POC GLUCOSE SCREEN 2020-05-21 23:34:00 Feliciano Chavarria MD on COMPLETE BLOOD COUNT W/ 2020-05-21 18:51:00 Dillan Louie MDrscaroline DIFFERENTIAL Results CBC 2020-05-21 18:51:00 Dana Moreno MD MANUAL DIFFERENTIAL 2020-05-21 18:51:00 Dana Moreno MD TRANSFUSE RED BLOOD CELLS 2020-05-21 16:45:16 Dillan Louie MD OSCILLATORY PEP 2020-05-21 13:00:17 Makeda Rodriguez MD PREPARE RBC 2020-05-21 12:35:00 Dillan Louie MD PRBC PRODUCT READY FOR PICK 2020-05-21 12:35:00 Feliciano Chavarria MD UP POC GLUCOSE SCREEN 2020-05-21 11:14:00 Feliciano Chavarria MD on OSCILLATORY PEP 2020-05-21 07:00:24 Makeda Rodriguez MD ASPARTATE AMINOTRANSFERASE 2020-05-21 06:44:00 Teddy Melton MD ALANINE AMINOTRANSFERASE 2020-05-21 06:44:00 Teddy Melton MD FRACTIONATED BILIRUBIN 2020-05-21 06:44:00 Teddy Melton MD nderson LACTATE DEHYDROGENASE 2020-05-21 06:44:00 Teddy Melton MD derson ALKALINE PHOSPHATASE 2020-05-21 06:44:00 Teddy Melton MD And wagner ALBUMIN LEVEL 2020-05-21 06:44:00 Teddy Melton MD MAGNESIUM LEVEL 2020-05-21 06:44:00 Teddy Melton MD PHOSPHORUS LEVEL 2020-05-21 06:44:00 Teddy Melton MD Andalysa vela COMPLETE BLOOD COUNT W/ 2020-05-21 06:44:00 Teddy Melton MD DIFFERENTIAL CALCIUM IONIZED, VENOUS 2020-05-21 06:44:00 Teddy Melton MD SODIUM LEVEL 2020-05-21 06:44:00 Brayan Gonzales MD POTASSIUM LEVEL 2020-05-21 06:44:00 Brayan Gonzales MD CHLORIDE LEVEL 2020-05-21 06:44:00 Brayan Gonzales MD CARBON DIOXIDE LEVEL 2020-05-21 06:44:00 Brayan Gonzales MD BLOOD UREA NITROGEN 2020-05-21 06:44:00 Brayan Gonzales MD And wagner SERUM CREATININE 2020-05-21 06:44:00 Brayan Gonzales MD on GLUCOSE, RANDOM 2020-05-21 06:44:00 Brayan Gonzales MD SERUM CREATININE 2020-05-21 06:44:00 Feliciano Chavarria MD .GLOMERULAR FILTRATION RATE 2020-05-21 06:44:00 Feliciano Chavarria MD Results CBC 2020-05-21 06:44:00 Teddy Melton MD MANUAL DIFFERENTIAL 2020-05-21 06:44:00 Teddy Melton MD Lev rson ANION GAP 2020-05-21 06:44:00 Feliciano Chavarria MD COMPLETE BLOOD COUNT W/ 2020-05-21 01:40:00 Dillan Louie MD nderson DIFFERENTIAL Results CBC 2020-05-21 01:40:00 JoshDana MD MANUAL DIFFERENTIAL 2020-05-21 01:40:00 JoshDana brady MD son OSCILLATORY PEP 2020-05-21 01:00:20 Makeda Rodriguez MD Skip son COMPLETE BLOOD COUNT W/ 2020-05-20 22:45:00 Dillan Louie MD nderson DIFFERENTIAL Results CBC 2020-05-20 22:45:00 Josh, Dana Kelly MANUAL DIFFERENTIAL 2020-05-20 22:45:00 Josh, Dana Valdivia son BASIC METABOLIC PANEL, 2020-05-20 22:45:00 Dillan Louie MD derson CALCIUM IONIZED GLUCOSE LEVEL 2020-05-20 22:45:00 Dana Moreno MD BLOOD UREA NITROGEN 2020-05-20 22:45:00 Josh, Dana Willser son ELECTROLYTE PANEL 2020-05-20 22:45:00 Josh, Dana Marcos n SERUM CREATININE 2020-05-20 22:45:00 Dana Moreno MD .GLOMERULAR FILTRATION RATE 2020-05-20 22:45:00 Dana Moreno MD CALCIUM IONIZED, VENOUS 2020-05-20 22:45:00 Dana Moreno MDon POC GLUCOSE SCREEN 2020-05-20 22:29:00 Feliciano Chavarria MD on OSCILLATORY PEP 2020-05-20 19:01:39 Makeda Rodriguez MD Skip son TRANSFUSE RED BLOOD CELLS 2020-05-20 18:33:00 Brayan Gonzales MD TEG S1 2020-05-20 17:49:00 Feliciano Chavarria MD TEG HEP 2020-05-20 17:49:00 Feliciano Chavarria MD .TEG PATH REVIEW 1 2020-05-20 17:49:00 Feliciano Chavarria MD on .TEG PATH REVIEW FINAL 2020-05-20 17:49:00 Feliciano Chavarria MD COMPLETE BLOOD COUNT W/ 2020-05-20 17:07:00 Dillan Louie MD nderson DIFFERENTIAL PARTIAL THROMBOPLASTIN TIME 2020-05-20 17:07:00 Dillan Louie MD PROTHROMBIN TIME 2020-05-20 17:07:00 Dillan Louie MD Results CBC 2020-05-20 17:07:00 JoshDana MD MANUAL DIFFERENTIAL 2020-05-20 17:07:00 [facility] POC GLUCOSE SCREEN 2020-05-20 16:16:00 Feliciano Chavarria MD on COMPLETE BLOOD COUNT W/ 2020-05-20 13:32:00 Dillan Louei MD nderson DIFFERENTIAL Results CBC 2020-05-20 13:32:00 JoshDana MD Robin MANUAL DIFFERENTIAL 2020-05-20 13:32:00 Dana Moreno MD Skip son OSCILLATORY PEP 2020-05-20 13:00:12 Makeda Rodriguez [facility] POC GLUCOSE SCREEN 2020-05-20 10:43:00 Feliciano Chavarria MD on SODIUM LEVEL 2020-05-20 07:32:00 Brayan Gonzales MD n POTASSIUM LEVEL 2020-05-20 07:32:00 Brayan Gonzales MD n CHLORIDE LEVEL 2020-05-20 07:32:00 Brayan Gonzales MD n CARBON DIOXIDE LEVEL 2020-05-20 07:32:00 Brayan Gonzales MD BLOOD UREA NITROGEN 2020-05-20 07:32:00 Brayan Gonzales SERUM CREATININE 2020-05-20 07:32:00 Brayan Gonzales MD on GLUCOSE, RANDOM 2020-05-20 07:32:00 Brayan Gonzales MD n MAGNESIUM LEVEL 2020-05-20 07:32:00 Brayan Gonzales MD n COMPLETE BLOOD COUNT W/ 2020-05-20 07:32:00 Brayan Gonzales MD DIFFERENTIAL SERUM CREATININE 2020-05-20 07:32:00 Feliciano Chavarria MD .GLOMERULAR FILTRATION RATE 2020-05-20 07:32:00 Feliciano Chavarria MD Results CBC 2020-05-20 07:32:00 Feliciano Chavarria MD MANUAL DIFFERENTIAL 2020-05-20 07:32:00 Feliciano Chavarria MD TYPE AND SCREEN 2020-05-20 07:32:00 Makeda Rodriguezer shabana ASPARTATE AMINOTRANSFERASE 2020-05-20 07:32:00 Teddy Melton MD ALANINE AMINOTRANSFERASE 2020-05-20 07:32:00 Teddy Melton MD FRACTIONATED BILIRUBIN 2020-05-20 07:32:00 Teddy Melton MD nderson LACTATE DEHYDROGENASE 2020-05-20 07:32:00 Teddy Melton MD derson ALKALINE PHOSPHATASE 2020-05-20 07:32:00 Teddy Melton erson ALBUMIN LEVEL 2020-05-20 07:32:00 Teddy Melton MD PHOSPHORUS LEVEL 2020-05-20 07:32:00 Teddy Melton MD n CALCIUM IONIZED, VENOUS 2020-05-20 07:32:00 Teddy Melton MD ABORH 2020-05-20 07:32:00 Makeda Rodriguezer shabana ANTIBODY SCREEN 2020-05-20 07:32:00 Makeda Rodriguez MD [facility] ANION GAP 2020-05-20 07:32:00 Feliciano Chavarria MD CLOT EXPIRATION DATE 2020-05-20 07:32:00 Makeda Rodriguez MD TMP CROSSMATCH INTERPRETATION 2020-05-20 07:32:00 Kenna Rodriguez MD OSCILLATORY PEP 2020-05-20 07:00:23 Makeda Rodriguez MD POC GLUCOSE SCREEN 2020-05-20 04:21:00 Feliciano Chavarria MD on VRE CULTURE 2020-05-20 03:03:00 Teddy Melton MD PROTHROMBIN TIME 2020-05-20 03:03:00 Brayan Gonzales MD on PARTIAL THROMBOPLASTIN TIME 2020-05-20 03:03:00 Addy Gonzales MD HEMOGLOBIN 2020-05-20 03:03:00 Brayan Gonzales MD HEMATOCRIT 2020-05-20 03:03:00 Brayan Gonzales MD BASIC METABOLIC PANEL, 2020-05-20 03:03:00 Teddy Melton MDrson CALCIUM IONIZED ASPARTATE AMINOTRANSFERASE 2020-05-20 03:03:00 Teddy Melton MD ALANINE AMINOTRANSFERASE 2020-05-20 03:03:00 Teddy Melton MD FRACTIONATED BILIRUBIN 2020-05-20 03:03:00 Teddy Melotn MDon LACTATE DEHYDROGENASE 2020-05-20 03:03:00 Teddy Melton MD derson ALKALINE PHOSPHATASE 2020-05-20 03:03:00 Teddy Melton ALBUMIN LEVEL 2020-05-20 03:03:00 Teddy Melton MD MAGNESIUM LEVEL 2020-05-20 03:03:00 Teddy Melton MD PHOSPHORUS LEVEL 2020-05-20 03:03:00 Teddy Melton MD COMPLETE BLOOD COUNT W/ 2020-05-20 03:03:00 Teddy Melton MD DIFFERENTIAL GLUCOSE LEVEL 2020-05-20 03:03:00 Teddy Melton MD ELECTROLYTE PANEL 2020-05-20 03:03:00 Teddy Melton MD on SERUM CREATININE 2020-05-20 03:03:00 Teddy Melton MD n .GLOMERULAR FILTRATION RATE 2020-05-20 03:03:00 Teddy Melton MD CALCIUM IONIZED, VENOUS 2020-05-20 03:03:00 Teddy Melton MD Results CBC 2020-05-20 03:03:00 Teddy Melton MD MANUAL DIFFERENTIAL 2020-05-20 03:03:00 Teddy Melton MD rson BLOOD UREA NITROGEN 2020-05-20 03:03:00 Teddy Melton MD Lev rson TRANSFUSE RED BLOOD CELLS 2020-05-20 01:38:48 Brayan Gonzales MD PREPARE RBC 2020-05-19 22:22:00 Brayan Gonzales MD HEMOGLOBIN 2020-05-19 22:06:00 Brayan Gonzales MD HEMATOCRIT 2020-05-19 22:06:00 Brayan Gonzales MD PROTHROMBIN TIME 2020-05-19 22:06:00 Brayan Gonzales MD on PARTIAL THROMBOPLASTIN TIME 2020-05-19 22:06:00 Addy Gonzales MD OSCILLATORY PEP 2020-05-19 20:56:09 Makeda Rodriguez MD Skipmarimar donald SODIUM LEVEL 2020-05-19 19:20:00 Brayan Gonzales MD POTASSIUM LEVEL 2020-05-19 19:20:00 Brayan Gonzales MD CHLORIDE LEVEL 2020-05-19 19:20:00 Brayan Gonzales MD CARBON DIOXIDE LEVEL 2020-05-19 19:20:00 Brayan Gonzales MD derson BLOOD UREA NITROGEN 2020-05-19 19:20:00 Brayan Gonzales MD And wagner SERUM CREATININE 2020-05-19 19:20:00 Brayan Gonzales MD on GLUCOSE, RANDOM 2020-05-19 19:20:00 Brayan Gonzales MD MAGNESIUM LEVEL 2020-05-19 19:20:00 Brayan Gonzales MD COMPLETE BLOOD COUNT W/ 2020-05-19 19:20:00 Brayan Gonzales MD DIFFERENTIAL SERUM CREATININE 2020-05-19 19:20:00 Feliciano Chavarria MD .GLOMERULAR FILTRATION RATE 2020-05-19 19:20:00 Feliciano Chavarria MD Results CBC 2020-05-19 19:20:00 Feliciano Chavarria MD MANUAL DIFFERENTIAL 2020-05-19 19:20:00 Feliciano Chavarria MD ANION GAP 2020-05-19 19:20:00 Feliciano Chavarria MD OR ARTERIAL BLOOD GAS PLUS 2020-05-19 13:28:00 Mansoor Laurent PATHOLOGY SURGICAL 2020-05-19 13:23:20 Feliciano Chavarria MD Hemant on INTERPRETATION CYSTECTOMY, COMPLETE; WITH 2020-05-19 11:35:00 Feliciano Chavarria BILATERAL PELVIC LYMPHADENECTOMY EXCISION OF PELVIC LYMPH 2020-05-19 11:35:00 Feliciano Chavarria MD NODES INCLUDING EXTERNAL ILIAC, HYPOGASTRIC, AND OBTURATOR NODES URETEROILEAL CONDUIT (ILEAL 2020-05-19 11:35:00 Darius George MD BLADDER), INCLUDING INTESTINE ANASTOMOSIS (PILAR OPERATION) FREEING OF INTESTINAL 2020-05-19 11:35:00 Darius George MD And rubyon ADHESION TYPE AND SCREEN 2020-05-17 13:02:00 Bela Marshall MD ABORH 2020-05-17 13:02:00 Bela Marshall MD ANTIBODY SCREEN 2020-05-17 13:02:00 Beal Marshall MD CLOT EXPIRATION DATE 2020-05-17 13:02:00 Bela Marshall MD And wagner TMP INTERPRETATION ANTIBODY 2020-05-17 13:02:00 Bela Marshall MD SCREEN NEGATIVE TMP CROSSMATCH INTERPRETATION 2020-05-17 13:02:00 Bela Marshall MD COVID-19 (SARS-COV-2) 2020-05-17 12:47:00 Sridevi Kim MD PCR-ASYMPTOMATIC MC GUA 2020-04-26 14:30:00 Feliciano Chavarria MD EKG, 12-LEAD (SCHEDULED) 2020-04-26 00:00:00 Uriel Mcgovern COMPREHENSIVE METABOLIC PANEL 2020-04-25 12:34:00 Feliciano Chavarria MD COMPLETE BLOOD COUNT W/ 2020-04-25 12:34:00 Feliciano Chavarria MD DIFFERENTIAL TYPE AND SCREEN 2020-04-25 12:34:00 Feliciano Chavarria MD PARTIAL THROMBOPLASTIN TIME 2020-04-25 12:34:00 Feliciano Chavarria MD HEMOGLOBIN A1C 2020-04-25 12:34:00 Feliciano Chavarria MD GLUCOSE LEVEL 2020-04-25 12:34:00 Feliciano Chavarria MD ELECTROLYTE PANEL 2020-04-25 12:34:00 Feliciano Chavarria MD SERUM CREATININE 2020-04-25 12:34:00 Feliciano Chavarria MD .GLOMERULAR FILTRATION RATE 2020-04-25 12:34:00 Feliciano Chavarria MD CALCIUM LEVEL TOTAL 2020-04-25 12:34:00 Feliciano Chavarria MD Skip son ALBUMIN LEVEL 2020-04-25 12:34:00 Feliciano Chavarria MD ALKALINE PHOSPHATASE 2020-04-25 12:34:00 Feliciano Chavarria MD ALANINE AMINOTRANSFERASE 2020-04-25 12:34:00 JonoFeliciano MD ASPARTATE AMINOTRANSFERASE 2020-04-25 12:34:00 Feliciano Chavarria TOTAL PROTEIN 2020-04-25 12:34:00 Feliciano Chavarria MD FRACTIONATED BILIRUBIN 2020-04-25 12:34:00 Feliciano Chavarria MD derson ABORH 2020-04-25 12:34:00 Feliciano Chavarria MD Results CBC 2020-04-25 12:34:00 Feliciano Chavarria MD ANTIBODY SCREEN 2020-04-25 12:34:00 Feliciano Chavarria MD MANUAL DIFFERENTIAL 2020-04-25 12:34:00 Feliciano Chavarria MD BLOOD UREA NITROGEN 2020-04-25 12:34:00 Feliciano Chavarria MD CLOT EXPIRATION DATE 2020-04-25 12:34:00 Feliciano Chavarria MD TMP INTERPRETATION EXCEPTION 2020-04-25 12:34:00 Feliciano Chavarria MD PREOP EXPIRATION COMPREHENSIVE METABOLIC PANEL 2020-04-10 17:29:00 Feliciano Chavarria MD COMPLETE BLOOD COUNT W/ 2020-04-10 17:29:00 Feliciano Chavarria MD DIFFERENTIAL PARTIAL THROMBOPLASTIN TIME 2020-04-10 17:29:00 Feliciano Chavarria MD GUA 2020-04-10 17:29:00 Feliciano Chavarria MD HEMOGLOBIN A1C 2020-04-10 17:29:00 Feliciano Chavarria MD TYPE AND SCREEN 2020-04-10 17:29:00 Feliciano Chavarria MD PROTHROMBIN TIME 2020-04-10 17:29:00 Feliciano Chavarria MD GLUCOSE LEVEL 2020-04-10 17:29:00 Feliciano Chavarria MD ELECTROLYTE PANEL 2020-04-10 17:29:00 Feliciano Chavarria MD SERUM CREATININE 2020-04-10 17:29:00 Feliciano Chavarria MD .GLOMERULAR FILTRATION RATE 2020-04-10 17:29:00 Feliciano Chavarria MD CALCIUM LEVEL TOTAL 2020-04-10 17:29:00 Feliciano Chavarria MD ALBUMIN LEVEL 2020-04-10 17:29:00 Feliciano Chavarria MD ALKALINE PHOSPHATASE 2020-04-10 17:29:00 Feliciano Chavarria MD ALANINE AMINOTRANSFERASE 2020-04-10 17:29:00 Feliciano Chavarria MD ASPARTATE AMINOTRANSFERASE 2020-04-10 17:29:00 Feliciano Chavarria TOTAL PROTEIN 2020-04-10 17:29:00 Feliciano Chavarria MD FRACTIONATED BILIRUBIN 2020-04-10 17:29:00 Feliciano Chavarria MD derson ABORH 2020-04-10 17:29:00 Feliciano Chavarria MD Results CBC 2020-04-10 17:29:00 Feliciano Chavarria MD MANUAL DIFFERENTIAL 2020-04-10 17:29:00 Feliciano Chavarria MD son ANTIBODY SCREEN 2020-04-10 17:29:00 Feliciano Chavarria MD BLOOD UREA NITROGEN 2020-04-10 17:29:00 Feliciano Chavarria MD son CLOT EXPIRATION DATE 2020-04-10 17:29:00 Feliciano Chavarria MD rscaroline TMP INTERPRETATION ANTIBODY 2020-04-10 17:29:00 Feliciano Chavarria MD SCREEN NEGATIVE TMP INTERPRETATION EXCEPTION 2020-04-10 17:29:00 Feliciano Chavarria MD PREOP EXPIRATION CONFIRM ABORH TYPE 2020-04-10 17:24:00 Feliciano Chavarria MD on AP IHC HER2/RAMILA 2020-03-31 16:15:48 Efe Cha MD AP IHC MSI (MLH1, MSH2, MSH6, 2020-03-31 16:15:48 Efe Cha MD PMS2) AP IHC MTAP 2020-03-31 16:15:[address] ABDOMEN PELVIS W WO 2020-03-29 00:35:48 Meggan, Roman butler CONTRAST UROGRAM COMPLETE BLOOD COUNT W/ 2020-03-28 15:57:00 Meggan, Roman De La Cruz nderson DIFFERENTIAL COMPREHENSIVE METABOLIC PANEL 2020-03-28 15:57:00 Meggan, Roman Kelly LACTATE DEHYDROGENASE 2020-03-28 15:57:00 Meggan, Roman Buchananon GUA 2020-03-28 15:57:00 MegganRoman MD Results CBC 2020-03-28 15:57:00 Meggan, Roman Kelly MANUAL DIFFERENTIAL 2020-03-28 15:57:00 Meggan, Roman Valdivia son GLUCOSE LEVEL 2020-03-28 15:57:00 MegganRoman MD BLOOD UREA NITROGEN 2020-03-28 15:57:00 Meggan, Roman CORBIN Skip son ELECTROLYTE PANEL 2020-03-28 15:57:00 Meggan, Roman vela SERUM CREATININE 2020-03-28 15:57:00 Meggan, Roman Kelly .GLOMERULAR FILTRATION RATE 2020-03-28 15:57:00 MegganRoman reeves MD CALCIUM LEVEL TOTAL 2020-03-28 15:57:00 Meggan, Roman CORBIN Skip son ALBUMIN LEVEL 2020-03-28 15:57:00 MegganRoman reeves MD ALKALINE PHOSPHATASE 2020-03-28 15:57:00 Meggan, Roman doshi ALANINE AMINOTRANSFERASE 2020-03-28 15:57:00 MegganRoman MD ASPARTATE AMINOTRANSFERASE 2020-03-28 15:57:00 MegganRoman reeves TOTAL PROTEIN 2020-03-28 15:57:00 MegganRoman reeves MD FRACTIONATED BILIRUBIN 2020-03-28 15:57:00 Meggan, Roman butler XR CHEST 2 VW 2020-03-28 13:34:49 Roman Broderick MD EKG, 12-LEAD (SCHEDULED) 2020-03-28 00:00:00 Roldan Chapman MD COVID-19 (SARS-COV-2) 2020-03-26 19:50:00 Em Guerra MD And wagner PCR-ASYMPTOMATIC MC OSI MRI PELVIS 2020-02-16 14:01:51 Feliciano Chavarria MD PATHOLOGY OUTSIDE 2019-10-26 00:00:00 Jenny Pacheco MD INTERPRETATION OSI CT ABDOMEN AND PELVIS 2019-09-15 13:02:18 Feliciano Chavarria MD Plan of Care Planned Activity Planned Date Details Comments Source Medication 2020-07-02 00:00:00 sulfamethoxazole-trimethopr MD Kelly im (BACTRIM DS) 800 mg-160 mg per tablet [code = 004600] Encounters Start End Encounter Admission Attending Care Care Encounter Source Date/Time Date/Time Type Type Clinicians Facility Department ID 2020-04-10 Outpatient SYSTEM, [facility] MDA [id number] 07:37:46 PROVIDER Hemant vela 2020-03-23 Outpatient COUNTS INCLUDE 234 BEDS AT [facility], MDA Urology [id number] 07:55:03 FELICIANO vela 2020-03-01 Outpatient SYSTEM, MDA MDA [id number] 08:49:33 PROVIDER Hemant vela 2020-06-06 2020-06-06 Outpatient [facility], MDA MDA [id number] 11:03:43 11:03:43 FELICIANO vela 2020-05-19 2020-05-31 Inpatient [facility], MDA Urology [id number] 05:11:00 14:16:00 FELICIANO vela 2020-05-31 2020-05-31 [facility]patient [facility], MDA MDA [id number] 08:15:30 08:52:37 MAKEDA vela 2020-05-25 2020-05-25 Inpatient [facility], MDA MDA [id number] 10:27:30 13:26:44 FELICIANO vela 2020-05-23 2020-05-23 Inpatient [facility], MDA MDA [id number] 20:59:02 21:01:01 FELICIANO vela 2020-05-18 2020-05-18 Outpatient [facility], MDA MDA [id number] MD 07:56:48 07:56:48 FELICIANO Hemant o n 2020-05-17 2020-05-17 Outpatient [facility], MDA MDA [id number] MD 07:56:41 23:59:00 BELA Gomezers o n 2020-05-17 2020-05-17 Outpatient [facility], MDA MDA [id number] MD 08:51:10 09:56:46 FELICIANO Hemant o n 2020-05-17 2020-05-17 Outpatient [facility], MDA MDA [id number] MD 07:37:52 08:04:30 FELICIANO Hemant o n 2020-05-15 2020-05-[address] [facility], MDA MDA [id number] MD 12:48:47 15:11:39 DARIUS Marcos o mirian 2020-05-06 2020-05-06 Outpatient [facility], MDA MDA [id number] MD 09:44:55 09:44:55 FELICIANO Hemant o n 2020-04-26 2020-04-26 Outpatient [facility], MDA MDA [id number] MD 10:16:02 23:59:00 URIEL Hemant o n 2020-04-26 2020-04-26 Outpatient [facility], MDA MDA [id number] 09:39:38 10:30:23 URIEL Hemant o n 2020-04-26 2020-04-26 Outpatient [facility], MDA MDA [id number] 08:24:08 10:15:00 FELICIANO Hemant o n 2020-04-25 2020-04-25 Outpatient [facility], MDA MDA [id number] MD 06:07:58 23:59:00 FELICIANO Hemant o n 2020-04-25 2020-04-25 Outpatient [facility], MDA MDA [id number] MD 11:08:32 14:19:14 FELICIANO Hemant o n 2020-04-25 2020-04-25 Outpatient [facility], MDA MDA [id number] MD 11:43:12 11:43:12 FELICIANO Hemant o n 2020-04-25 2020-04-25 Outpatient [facility], MDA MDA [id number] MD 08:08:11 11:24:33 FELICIANO Gomezers o n 2020-04-21 2020-04-21 Outpatient [facility] MDA MDA [id number] MD 06:25:00 23:59:00 CHANELL Hemantruby vela 2020-04-14 2020-04-14 [facility] MDA [id number] MD 11:31:34 11:56:38 RIKYELIUD Gomezers o n 2020-04-10 2020-04-10 Outpatient [facility], MDA MDA [id number] MD 11:15:00 23:59:00 FELICIANO Gomezers o n 2020-04-10 2020-04-10 Outpatient [facility], MDA MDA [id number] MD 11:50:27 17:31:07 FELICIANO Gomezers o n 2020-04-10 2020-04-10 Outpatient [facility], MDA MDA [id number] MD 11:47:49 17:31:01 FELICIANO Hemant o n 2020-03-31 2020-03-31 Outpatient [facility], MDA MDA [id number] MD 06:46:35 06:46:35 EFE Gomezers o n 2020-03-29 2020-03-29 Outpatient [facility] [id number] 2020-03-28 2020-03-28 Outpatient [facility], MDA MDA [id number] 15:11:40 23:59:00 FELICIANO Hemant o n 2020-03-28 2020-03-28 Outpatient [facility], MDA MDA [id number] MD 07:07:59 15:10:00 FELICIANO Hemant o n 2020-03-28 2020-03-28 Outpatient [facility], MDA MDA [id number] 07:26:46 13:33:44 FELICIANO Hemant o n 2020-03-28 2020-03-28 Outpatient [facility], MDA MDA [id number] MD 12:06:37 13:19:54 FELICIANO Hemant o n 2020-03-28 2020-03-28 [facility], MDA MDA [id number] 10:08:53 11:16:05 EFE Marcos o n 2020-03-28 2020-03-28 Outpatient [facility], MDA MDA [id number] MD 09:43:26 10:02:14 FELICIANO Marcos o n 2020-03-28 2020-03-28 Outpatient [facility], MDA MDA [id number] MD 07:52:52 07:52:52 FELICIANO Gomezers o n 2020-03-28 2020-03-28 Outpatient [facility], MDA MDA [id number] MD 07:52:47 07:52:47 FELICIANO Marcos o n 2020-03-28 2020-03-28 Outpatient [facility], MDA MDA [id number] MD 07:52:44 07:52:44 FELICIANO Marcos o n 2020-03-28 2020-03-28 Outpatient [facility], MDA MDA [id number] MD 07:01:12 07:06:28 FELICIANO Marcos o n 2020-03-26 2020-03-26 Outpatient [facility], MDA MDA [id number] MD 13:42:50 14:24:35 FELICIANO Marcos o n 2020-03-14 2020-03-14 Outpatient [facility] [id number] [facility] 2020-03-08 2020-03-08 Outpatient [facility] [id number] [facility] 2020-03-02 2020-03-02 Outpatient [facility] [id number] [facility] 2020-02-29 2020-02-29 Outpatient [facility] [id number] [facility] 2020-02-29 2020-02-29 Outpatient [facility] [id number] [facility] 2020-02-23 2020-02-23 Outpatient [facility] [id number] [facility] 2020-02-08 2020-02-08 Outpatient [facility] [id number] [facility] 2020-02-07 2020-02-07 Outpatient [facility] [id number] [facility] 2020-02-02 2020-02-02 Outpatient [facility] [id number] [facility] 2020-01-07 2020-01-07 Outpatient [facility] [id number] [facility] 2020-01-06 2020-01-06 Outpatient [facility] [id number] [facility] 2019-12-28 2019-12-28 Outpatient [facility] [id number] [facility] 2019-12-22 2019-12-22 Outpatient [facility] [id number] [facility] 2019-11-30 2019-11-30 Outpatient [facility] [id number] [facility] 2019-11-15 2019-11-15 Outpatient [facility] [id number] [facility] 2019-11-02 2019-11-02 [facility] [id number] [facility] 16:19:00 16:19:00 t Special[facility] 2019-10-29 2019-10-29 [facility] [id number] [facility] 08[facility]15:00 08:15:00 t [facility] l Clinic Outpati ent Clinics 2019-10-12 2019-10-12 [facility] [id number] [facility] 16[facility]13:00 16:13:00 t Special[facility] l Clinic Outpati ent Clinics 2019-10-11 2019-10-11 [facility] [id number] [facility] 12:50:00 12:50:00 t Special[facility] l Clinic Outpati ent Clinics 2019-10-05 2019-10-05 [facility] [id number] [facility] 10:45:00 10:45:00 t Special[facility]Urology [facility] l Clinic Outpati ent Clinics 2019-09-29 2019-09-29 [facility] [id number] [facility] 14:15:00 14:15:00 t Special[facility]rology [facility] l Clinic Outpati ent Clinics 2019-09-20 2019-09-20 [facility] [id number] [facility] 15:50:00 15:50:00 t Special[facility]rology [facility] l Clinic Outpati ent Clinics 2019-09-15 2019-09-15 [facility] [id number] [facility] 15:56:00 15:56:00 t Specialty/[facility] l Clinic Outpati ent Clinics 2019-08-16 2019-08-16 [facility] [id number] [facility] 08:45:00 08:45:00 t Special[facility] l Clinic Outpati ent Clinics 2019-07-22 2019-07-22 [facility] [id number] [facility] 08:30:00 08:30:00 t Specialty/[facility]Urology [facility] l Clinic Outpati ent Clinics 2019-06-10 2019-06-10 [facility] [id number] [facility] 08:30:00 08:30:00 t Specialty/[facility] 2019-06-08 2019-06-08 [facility] [id number] [facility] 10:23:00 10:23:00 t Specialty/[facility] - [facility] Results Test Description Test Time Test Comments Results Result Comments Source Electrolyte Panel 2020-05-31 10:27:54 Test Item Value Reference Range Interpretation Comme nts Sodium Lvl (test code = 7355) 133 See_Comment L [Automated message] The system which generated this result transmitted ref erence range: 136 - 145 mEq/L. Th e reference range was not used to interpret this result as micki l/abnormal. Potassium Lvl (test code = 4.3 See_Comment [Automated message] The system 7054) which generated this result transmitted ref erence range: 3.5 - 5.1 mEq/L. Th e reference range was not used to interpret this result as micki l/abnormal. Chloride (test code = 5279) 99 See_Comment [Automated message] The system which generated this result transmitted ref erence range: 98 - 107 mEq/L. Th e reference range was not used to interpret this result as micki l/abnormal. CO2 (test code = 5227) 26 See_Comment [Aut omated message] The system which generated this result transmitted ref erence range: 22 - 29 mEq/L. The reference range was not used to interpret this result as micki l/abnormal. Anion Gap (test code = 9325) 8 See_Comment [Automated message] The system which generated this result transmitted ref erence range: 4 - 14 mEq/L. The r eference range was not used to interpret this result as micki l/abnormal. Lab Interpretation (test code Abnormal = 19828-0) MD KellyPhosphorus [id number] 10:27:53 Test Item Value Reference Range Interpretation Comments Phosphorus (test code = 6817) 4.6 mg/dL 2.5-4.5 H Lab Interpretation (test code = Abnormal 68643-0) MD KellyGlomerular Filtration [id number] 10:27:52 Test Item Value Reference Range Interpretation Comments eGFR-AA (test code 96 See_Comment Normal eG FR: >= 60 = 8062) mL/min/1.73 m2N ote: The eGFR is calculated u sing the CKD-EPI equatio n. The eGFR declines with a ge. eGFR <60 mL/min/1.73 m2 is considered as "decreased". This equation should only be used for patients 18 and older. According to th e [employer] on's Kidney Disease Outcome Quality Initiative (KDO QI) classification and 2012 Kidney Disease Improving Global Outcomes (KDIGO) Clinical Practi ce Guideline, the stage of CK D should be categorized bas ed on estimated GFR. Stage Description GFR mL/min/1.73 m21 Normal or high GFR >=902 Mildly decrease d GFR 60-893a M ildly to moderately decr eased GFR 45-593b Moderat cyndi to severely decrea sed GFR 30-444 Severely decreased GFR 15-295 Kid tone failure <15 [Automa antonio message] The system [employer] generated this result tra nsmitted reference range : >=60 mL/min/1.73 sq. m. The reference range was not used to interpret th is result as normal/abnormal . eGFR-BARBY (test code 83 See_Comment Normal e GFR: >= 60 = 8063) mL/min/1.73 m2N ote: The eGFR is calculated u sing the CKD-EPI equatio n. The eGFR declines with a ge. eGFR <60 mL/min/1.73 m2 is considered as "decreased". This equation should only be used for patients 18 and older. According to th e [employer] on's Kidney Disease Outcome Quality Initiative (KDO QI) classification and 2012 Kidney Disease Improving Global Outcomes (KDIGO) Clinical Practi ce Guideline, the stage of CK D should be categorized bas ed on estimated GFR. Stage Description GFR mL/min/1.73 m21 Normal or high GFR >=902 Mildly decrease d GFR 60-893a M ildly to moderately decr eased GFR 45-593b Moderat cyndi to severely decrea sed GFR 30-444 Severely decreased GFR 15-295 Kid tone failure <15 [Automa antonio message] The system [employer] generated this result tra nsmitted reference range : >=60 mL/min/1.73 sq. m. The reference range was not used to interpret th is result as normal/abnormal . MD KellyMagnesium [id number] 10:27:50 Test Item Value Reference Range Interpretation Comments Magnesium (test code = 6359) 2.6 mg/dL 1.6-2.6 MD KellyGlucose [id number] 10:27:49 Test Item Value Reference Range Interpretation Comments Glucose Level (test code 112 mg/dL 70-99 H Eff ective 09/13/15, = 5699) the glucose reference inter vals have been updat ed based on [place] an Diabetes Associ ation guidelines (Standards of Medical Care in Diabetes 2016. Diabetes Care 2 016; 39: S13-S22).Fa sting blood glucose:Normal: 70 99 mg/dLImpaire d fasting glucose (increased risk for diabetes or pre-diabetes): 100 125 mg/dLDiabet es mellitus: >/=1 26 mg/dL Random bl ood glucose:Normal: 70 199 mg/dLNote: Random glucose >100 mg/dL is associ ated with increased risk for diabetes Lab Interpretation (test Abnormal code = 13958-4) MD Kelly.Serum Rdzhxdozvk4532-19-44 10:27:48 Test Item Value Reference Range Interpretation Comments Creatinine (test code = 5399) 0.89 mg/dL 0.67-1.17 MD KellyRhinxdqyXKW5706-03-47 10:27:47 Test Item Value Reference Range Interpretation Comments BUN (test code = 5055) 29 mg/dL 6-23 H Lab Interpretation (test code = Abnormal 11710-3) MD KellyCalcium Ionized, [id number] 10:00:38 Test Item Value Reference Range Interpretation Comments V Ion Ca (test code = 62656-6) 1.12 mmol/L 1.15-1.29 L Lab Interpretation (test code = Abnormal 88347-2) MD KellyIavapjjuDodbozxxncrq8534-20-90 09:59:41 Test Item Value Reference Range Interpretation Comments Neutrophil % (test code = 81.2 % 42-66 H 6491) Lymphocyte % (test code = 6.7 % 24-44 L 6194) Monocyte % (test code = 8.2 % 2-7 H 6422) Eosinophil % (test code = 1.4 % 1-4 5520) Basophil % (test code = 0.4 % 0-1 5068) IGRE % (test code = 5958) 2.1 % 0-0.4 H IG RE % count includes Metamyelocytes, Myelocytes, and Promyelocytes. Neutrophil Abs (test code 11.58 K/uL 1.7-7.3 H = 6492) Lymphocyte Abs (test code 0.96 K/uL 1-4.8 L = 6195) Monocyte Abs (test code = 1.17 K/uL 0.08-0.7 H 6423) Eosinophil Abs (test code 0.20 K/uL 0.04-0.4 = 5521) Basophil Abs (test code = 0.05 K/uL 0-0.1 5069) IG Abs (test code = 5954) 0.30 K/uL 0-0.04 H Lab Interpretation (test Abnormal code = 79279-9) MD Kelly.[id number] 09:59:39 Test Item Value Reference Range Interpretation Comments WBC (test code = 8034) 14.3 K/uL 4-11 H RBC (test code = 6932) 3.13 See_Comment L [Aut omated message] The system [employer] generated this result transmitted ref erence range: 4.50 - 6 .00 M/uL. The refer ence range was not u sed to interpret this result as normal/abnor mal. Hgb (test code = 5898) 9.5 See_Comment L [Aut omated message] The system [employer] generated this result transmitted ref erence range: 14.0 - 1 8.0 gm/dL. The refe rence range was not u sed to interpret this result as normal/abnor mal. Hct (test code = 5860) 30.4 % 40-54 L MCV (test code = 6222) 97 fL 82-98 MCH (test code = 6220) 30.4 pg 27-31 MCHC (test code = 6221) 31.3 See_Comment [Au tomated message] The system [employer] generated this result transmitted ref erence range: 31.0 - 3 6.0 gm/dL. The refe rence range was not u sed to interpret this result as normal/abnor mal. RDW-SD (test code = 51.0 fL 35.1-46.3 H 6972) RDW-CV (test code = 14.6 % 12-15.5 6971) Platelet count (test 384 K/uL 140-440 code = 6832) MPV (test code = 6282) 11.7 fL 4-10.4 H INRBC (test code = 0.0 % See_Comment The INRBC (instrument 5974) NRBC) value ref lects the enumeration of nucleated red b lood cells contained in a 200uL sampleof whole blood analyzed by the instrument. Thi s value maydiffer from the NRBC value reported in a m anual differential,wh ich is based on a 100 cell differential. [Automated mess age] The system [employer] generated this result transmitted ref erence range: <=0.0. T he reference range was not used to int erpret this result as normal/abnormal . Lab Interpretation Abnormal (test code = 02641-3) MD KellyTMTara Interpretation Antibody Screen [id number] 19:19:40 Test Item Value Reference Range Interpretation Comments TMP Auto Neg At the present ABSC Interp time, patient (test code = plasma shows no KATE 7535) evidence of RBC BOYER alloantibodies. Arely OLSEN antonio by: KATE OLSEN,Dictated Date/Time: 05.29.2020 14:1 9 PM CDT Transcrib ed Date/Time: 05.29.2020 14:1 9 PM CDTElectronical ly Signed By: AYUSH IN ROSALIND OLSEN, on 05.29.2020 14:1 9 PM MD KellyAntibody [id number] 12:55:40 Test Item Value Reference Range Interpretation Comments ABSC. (test code = 890-4) Negative ABSC MD KellyVggnddzpVGOYm4847-25-65 12:55:39 Test Item Value Reference Range Interpretation Comments ABORh. (test code = 882-1) A POS MD KellyClot Expiration [id number] 12:55:37 Test Item Value Reference Range Interpretation Comments T & S Expiration (test code = 06/01/2020 5318) MD KellyBgedxfngXvugqbiufh2330-71-19 20:24:30 Test Item Value Reference Range Interpretation Comments Prealbumin (test code = 6855) 11.6 mg/dL 20-40 L Lab Interpretation (test code = Abnormal 32375-2) MD KellyC-reactive ugborxo7886-20-83 08:56:58 Test Item Value Reference Range Interpretation Comments CRP (test code = 154.57 mg/L Reference r anges for HS 5235) CRP assay are a s follows: Reference range s when used to assess cardi ac risk: <1.00 mg/L Low cardiovascular risk 1.00-3.00 mg/L Average cardiovascular risk >3.00 mg/L High cardi ovascular risk.Reference ranges when used to assess inflammatory re sponses: Less than or eq ual to 10.00 mg/L. MD KellyFractionated Ugjjzhrui7742-31-96 08:45:15 Test Item Value Reference Range Interpretation Comments Bili Total (test code 1.3 mg/dL See_Comment H Indocy anine Green = 5096) (ICG) may cause falsely elevate d bilirubin resul ts. Total and direc t bilirubin must not be measured from s amples containing indo cyanine green. False el evation of total biliru bin can be seen in heidi ents with IgG concentrations above 28 g/L. [Autom ated message] The sy stem which generated this result transmit antonio reference range : <=1.2. The refe rence range was not u sed to interpret this result as normal/abnor mal. Bili Direct (test code 0.3 mg/dL See_Comment Indoc yanine Green = 5094) (ICG) may cause falsely elevate d bilirubin resul ts. Total and direc t bilirubin must not be measured from s amples containing indo cyanine green. [Automat ed message] The sy stem which generated this result transmit antonio reference range : <=0.3. The refe rence range was not u sed to interpret this result as normal/abnor mal. Bili Indirect (test 1.0 mg/dL 0-0.9 H code = 5095) Lab Interpretation Abnormal (test code = 71934-0) MD KellyTotal Tpsjyir3789-62-35 08:45:14 Test Item Value Reference Range Interpretation Comments Total Protein (test code = 7649) 6.4 g/dL 6.4-8.3 MD KellyAlkaline Fxhsvqecdoa0604-53-72 08:45:13 Test Item Value Reference Range Interpretation Comments Alk Phos (test code = 4768) 84 U/L 40-129 MD [id number] 08:45:11 Test Item Value Reference Range Interpretation Comments ALT (test code = 27 U/L See_Comment [Automated message] The 2415) system which ge nerated this result transmit antonio reference range : <=41. The reference range was not used to interpr et this result as micki l/abnormal. MD KellyAlbumin [id number] 08:45:10 Test Item Value Reference Range Interpretation Comments Albumin Lvl (test code = 3.3 See_Comment L [A utomated message] 0344) The system whic h generated this result transmitted ref erence range: 3.5 - 5. 2 gm/dL. The refe rence range was not u sed to interpret this result as normal/abnor mal. Lab Interpretation (test Abnormal code = 65030-8) MD KellyAspartate Sujssatumcguinbn3645-48-95 08:45:09 Test Item Value Reference Range Interpretation Comments AST (test code = 22 U/L See_Comment [Automated message] The 4281) system which ge nerated this result transmit antonio reference range : <=40. The reference range was not used to interpr et this result as micki l/abnormal. MD KellyRudumnfqKlfjcpuxayfep5924-66-30 08:45:08 Test Item Value Reference Range Interpretation Comments Trig (test code = 266 mg/dL See_Comment H ATP III Cl assification 7655) of Serum Trigly cerides Primary Target of Therapy (in mg/dL):<150 Yfkzis679-345 Borderline high 200-499 High>=500 Very highNon-fa sting triglycerides > 200 mg/dL may be fo llowed up with a fasti ng Lipid Panel. Calculated LDL- C may be falsely decr eased when non-fastin g triglycerides > 200 mg/dL. [Automa antonio message] The sy stem which generated this result transmit antonio reference range : <=149. The refe rence range was not u sed to interpret this result as normal/abnor mal. Lab Interpretation Abnormal (test code = 81046-6) MD KellyCreatinine [id number] 02:04:31 Test Item Value Reference Range Interpretation Comments Creatinine BF (test 0.69 mg/dL This ass ay has been code = 5400) validated for b leon fluids. No refe rence ranges have bee n established. Te st results should be interpreted in context of the patient' s clinical condit ion and in conjunction with similar assays performed on se rum. Pathologist sukhdev garcia is available. Creat BF Type (test Drainage BINU DRAIN code = 5397) MD KellyTip Verification [facility] [id number] 22:16:23 Eleonora Mansfield RN 05/25/2020 5:17 PMCentral Vascular Access Device Tip Verification Performed by: Eleonora Mansfield, RNAuthorized by: Feliciano Chavarria MD CVAD PropertiesDate device placed: 05/25/2020 Placed by: Eleonora Mansfield RNDevicgwendolyn placement location: MDAndersonCatheter Type: PICC Catheter lumen: Double lumenVein location: BasilicLaterality: Right Tip Verification PropertiesDiagnostic image available: Chest xrayWritten diagnostic report available: Yes Tip location per report: Superior vena cava Tip in good position and cleared for infusionMD AndersonX-ray Abdomen [id number] 21:09:18 1. Feeding tube has been repositioned, with tip now entering the fundus of the stomach, with side-port approximately 8.4 cm proximal.2. Partially imaged multiple dilated loops of small and large bowelfrom partial obstruction or ileus are unchanged. 3. Partially imaged lower lungs are clear.4. Partially imaged tubing overlying the right lateral chest, right nephroureteral stent, and safety pin overlying the midthoracic vertebral bodies are noted.Interface, Radiology Results In - 05/25/2020 4:11 PMCDTFULL RESULT:Examination: XR ABDOMEN AP on 05/25/2020 3:05 PMClinical History: Bladder cancerIndication: Tube Placement (nasogastric/gastric)Comparison: 05/25/2020 abdomen plain filmTechnique: XR ABDOMENAP, 3 imagesFindings: See below.IMPRESSION:1. Feeding tube has been repositioned, with tip now entering the fundus of the stomach, with side-port approximately 8.4 cm proximal.2. Partially imaged multiple dilated loops of small and large bowel from partial obstruction or ileus are unchanged. 3. Partially imaged lower lungs are clear.4. Partially imaged tubing overlying the right lateral chest, right nephroureteral stent, and safety pin overlying the midthoracic vertebral bodies are noted.MD KellyXR Chest 2 View Post Implant 2020-05-25 20:12:08 1. Right PICC in satisfactory position without evidence of complication2. Nasogastric tube in satisfactory position.3. Bibasilar airspace disease and trace pleural fluid concerning for aspiration or infection. Interface, Radiology Results In - 05/25/2020 3:14 PM CDTFULL RESULT:Examination: PA and Lateral Chest Radiographs, 2 views 05/25/2020 3:07 PM.Clinical History: Malignant neoplasm of overlapping sites of bladder.Indication: PICC placement.Comparison: Chest radiograph 03/28/2020 at 0705 hoursTechnique: Dual energy subtraction PA and lateral chest radiographs.Findings:A right peripherally inserted longline catheter terminates in the lower superior vena cava. A nasogastric tube has been placed, terminating over the gastric bubble.The lungs are adequately inflated. There is patchy bibasilaropacity and trace pleural fluid. No pneumothorax. The heart size and aortic contour are within normal limits.IMPRESSION:1. Right PICC in satisfactory position without evidence of complication2. Nasogastric tube in satisfactory position.3. Bibasilar airspace disease and trace pleural fluid concerning for aspiration or infection.MD KellyXR Abdomen 1 View Portable 2020-05-25 17:21:49 1. Feeding tube is not appropriately positioned, coiled in the distal esophagus, with tip facing superiorly, in the mid esophagus. Clinician Dr. Archuleta the fellow was notified at 12:20 PM, 05/25/2020.2. Persistent dilated loops of small bowel and large bowel from partial obstruction or ileus is again seen.3. Partially imaged lower abdominal tubes . Safety pin overlies the right lower chest.Interface, Radiology Results In - 05/25/2020 12:23 PM CDTFULL RESULT:Examination: XR ABDOMEN 1 VW PORTABLE on 05/25/2020 10:50 AMClinical History: Bladder cancerIndication: Tube Placement (nasogastric/gastric)Comparison: 05/24/2020 abdomen plain filmTechnique: XR ABDOMEN 1 VW PORTABLE, 2 images of the upper abdomenFindings: See below.IMPRESSION:1. Feeding tube is not appropriately positioned, coiled in the distal esophagus, with tip facing superiorly, in the mid esophagus. Clinician Dr. Archuleta the fellow was notified at 12:20 PM, 05/25/2020.2. Persistent dilated loops of small bowel and large bowel from partial obstruction or ileus is again seen.3. Partially imaged lower abdominal tubes . Safety pin overlies the right lower chest.MD KellyPathology Surgical [id number] 21:30:00 Test Item Value Reference Range Interpretation Comments Diagnosis (test code l7rfyRDkTDVyuVW2DvDcKDWno = 34) 4wqg4TveCEpmNKjHWximYCdez Otdh17tHK8kH70NC9tJXJwZuJ 5IWWwajZ9Zwz6AUCeVGNgfGNx O620d1mzk4nimqQydCY9sTstI XJkXHBsYWluXGZzMjAgQTogVX JleJSvKWChELA4WNXqz8NutIV 7hpB7OWMmzNAoETSktC52GHIq nrrbeRseRWnwaN66EsWdD3Hjl BRdbGNhIvR6puW8DYHxIJ4wRM A5rH6vFKIrJCCfvpNyFYPtxpr saTBcbGluMFxwYXIgQjogVXJl kEOjEUFezSyqvMJgiSN0ZSgxa JShfAXkYCcvbOIoH3pkHrpmJI JtoSe4ZpGgzVvnGgDzIVMwM07 spmUha6FhgXIbvYWpKMAfgrQ7 aR7tveJifcPhEK02KwsuVYRmn KprVKylkfYlxNMrZQH6KHWtnM 2zuohvUqogWHRppbrfiHWwt1Y rjDHnO5fqatJxLI8nEYFzlYsr BItequHrxXVxJQQvENU8l6Gta SZdm9XioFEtbO7ewLtdjPYcEH xpNzIwXGxpbjcyMCBNVUxUSUZ IA8KCHEMKZ0TIPFbGMVuhH2BG E2nPK33MNUmWZDWALTNpIO1FY 7yQWR0VXGQNQPAEYIXLMOUUDK EPDtCID4QzUWfRBFUfT7GAPSA XY1YRP20URQ9nxUDbWA8aKNPw z0luqVByXEjnrhPwtKTpEWFpe 6SzHUefLMssA5EzW7hjj70kVB ByZXNlbnQuIFxwYXIgQmxhZGR udxY5FGgmWMbozSjnD2cqi22q JrGggyGzGY2yMZJcg36vIIjfJ X02YAZodIswwqIgV1Aat49fWL 3gGOCeJmRie4cyCFLuu34uvMJ 1ZI33TEjqaLxwyZWej6CupNPa T9GmyQTmRTVhkNQieVdulnMft KKgWjKxM3ZrBODcxiTJFGAjiZ 8xJG8gOVLbq9HgyIeyoxAoyFJ idLdiJAFtxwXxwVFfjCNww1yx YNrmr75gmXY6oZEtmBUrTRVtj qA0hZ6kxePyfoXwES50LuxyTW NyEEAZG4LONRuECDCKCX2US8D PV2bJU22UPRITHJDPF14QBOVG E4RSYRSrOAWoOlsuYOzDYl8VW ejCBsNKYXGCHTUCJA2qWSKqU5 MtJRrKOTEPE0YUVHVLGYHYY03 NRR8UBNBPOhFITOBcYHZKA2UN WIUlVLBGPZQXOHPiOQLCPM7BJ 5rwCiejSGZeJ4BfiY0lsAK5CZ NnZ0xyycuoca7ujWUve1BivHR cl3WyiR0uyONjQP2iobzrxgDj j5KvwwOdPIV6mM3xFMAqehV9t D1bflOifdJqQW27LdqiIPWykQ tbSWpndbPjtUBjQYM1KQe5bMQ jHE5hIBDevgbhJMkqVsThAPAe yOJvYtdfpZiacXhgko1aJVZoB Comy5JasMwwxckxoUKwETlhEq IwXGxpbjcyMCBUaGlydHktdHd pGNc5dIGlPE4jZPKkWJJpAGwo eBc2TAMji9IqU5UdI4bpp92xW TlnZePcMN8krZPdSUkfDTtxrE 6jHWHfncPFCtMPrG2lrYNyy9V lKHMpLCByaWdodCwgcGVsdmlj KZRfkI5nxRCla5FbblRsfBIbY SL5uB1rEkmoYAJqkNd2BtYpbA oeUvMxRQN4RD03yF0shXnteWg ovRxsbp5jDIOnIV4sJ4V1jZUq BAFnvdCxZZZzvY6lwQTiZZMrW jYpLlxwYXJcbGkwXGxpbjBccG VcZDA8WCCdKKYfspfrwEZxnFH wfQ5yzCJovn81vS2ouWJ5biE2 CYEkvWVxBKRoqB05HWKezrmii UohZZmwqB81WoZiP7SaaYCwvP IxJeX7kuF4WIIqEQ6bIZD7wW0 yIHByZXNlbnQuXHBhclxsaTBc bGluMFxwYXIgRzogVXJldGVyL AMjcRrpeUNdaI3goBFdzf93vZ 6ijKA6jqC0COCquMAtYBYneJ3 8KALhkyucdCsgBUfjlE40PjIy D8JudDJsvUQgNyP4igE5SFRgW T2lRJX9xJ3jNJBxDSOsxtCbPR BhhsvyIBDvIIRkfmNLVs5TPQL ccGFyfQ== Synoptic Checklist URINARY BLADDER: (test code = 9864) Cystectomy, Anterior Exenteration (URINARY BLADDER: CYSTECTOMY - All Specimens) 8th Edition - Protocol posted: 04/14/2019 SPECIMEN Procedure: Radical cystoprostatectomy TUMOR Tumor Site: Anterior wall Histologic Type: Urothelial carcinoma in situ Histologic Grade: Not applicable Tumor Size: Cannot be determined: Multifocal Tumor Extension: Urothelial carcinoma in situ Lymphovascular Invasion: Not identified Tumor Configuration: Flat MARGINS Margins: Uninvolved by invasive carcinoma and carcinoma in situ / noninvasive urothelial carcinoma LYMPH NODES Number of Lymph Nodes Involved: 0 Number of Lymph Nodes Examined: 58 PATHOLOGIC STAGE CLASSIFICATION (pTNM, AJCC 8th Edition) Primary Tumor (pT): pTis Regional Lymph Nodes (pN): pN0 PROSTATE GLAND: Radical Prostatectomy (PROSTATE GLAND: RADICAL PROSTATECTOMY - All Specimens) 8th Edition - Protocol posted: 04/14/2019 SPECIMEN Procedure: Cystoprostatectomy TUMOR Histologic Type: Acinar adenocarcinoma Histologic Grade: Grade Group and Seema Score: Grade group 1 (Graham Score 3 + 3 = 6) Intraductal Carcinoma (IDC): Not identified Tumor Quantitation: Estimated percentage of prostate involved by tumor: <5 % Tumor Quantitation: Greatest Dimenion of Dominant Nodule (Millimeters): 7 mm Additional Dimension (Millimeters): 4 mm Additional Dimension (Millimeters): 2 mm Extraprostatic Extension (EPE): Not identified Urinary Bladder Neck Invasion: Not identified Seminal Vesicle Invasion: Not identified Treatment Effect: No known presurgical therapy MARGINS Margins: Uninvolved by invasive carcinoma LYMPH NODES Number of Lymph Nodes Involved: 0 Number of Lymph Nodes Examined: 58 PATHOLOGIC STAGE CLASSIFICATION (pTNM, AJCC 8th Edition) Primary Tumor (pT): pT2 Regional Lymph Nodes (pN): pN0 Gross Description c2tkbHLtBWAolIV1BiYjPYFmy (test code = 3gne1RlvWJuuRYgBJbgwSBslx [id number]) Fdpk75hCE4jO74NE2kNRFpPfG 8DLTyfyE1Rza8HDPtPCKhyJIs A150o1tal4efulQbiFO4xXnbO RDek9meWASwlAWpVEF1XGojjJ EzESDkDJRpGWm1XRKtIChmoRA zGR2agJocLszpbGibd4FxkUCh YCboMUFpAVIlREclRKByX0YMF MEbGzGqRpQ5UWXuQIx2YCpmZ4 ZNJNKdFIX6Azl4IPYsDpV5KMg 6EFIYMy2zIuPeZtCrPCWdPIQ1 Slg3DXmxaUGuRJeeQenjUYvbN EFyaWFsIFxcZnMgMTAgXFxmYi KrNN3unXdtyOJzsrpaOEMpKdB gQTpccGFyXGYwIFVyZXRlciwg uVNbrTxkbJRdsAPvbUJ6FBeis WBfgZYcAWwjrYEcZ9oqRPJwYG BakqlvHHXmzNCnBXZsbH06GGH wICAwLjYgeCAwLjQgeCAwLjMg Y08uaHsxkq60ZZ5oiQBgiGNiH QJvG6Byd4ZxQZYvHJPagzOwwT Roj2MybZLhk2UsyQksd8VrZJE oYXQgaXMgZGVzaWduYXRlZCB3 tMTeWOKww4eeaPXrdpjwWBJks EScU9hwIgWbGBufZGInIQFijG VlGOrsAAJ0Hi5ohFRnSXlpOU6 nCwYmPVBvliPgFREmXEI2WNLL TIZle1TmWeOohiHgJPVyU2Xej 31tUM9rVGLxxc4aslDmqLPgnv BfrMB9eI8pVzEjXxe4OSQphBD yGBM7GW0jMRJhtuiwEUYbSZAj ZIT3MEothG77uOAgSVPrIJQnl CGrsArbDnhjjUfja3EhaNDyZS nuFHVvOAPqSFwxZFXsZ0SGICW gHlLxUwL3TYPlYTq9SSwvH8GY IJBjGKM7Asg8KKO1TgY2GFl7I CBSOg8lZdUvNgG1PuHzTBU0Ss v2BQvmfAYfKFesFbpvUCqyZNP yaWFsIFxcZnMgMTAgXFxmYiBc TW0hiKcwTVVoEAI5PZNcgbnkG OLCrzS1EVBdBTWqB2l6XMOtiG suoNShuNT1ZSryfEQrwBBiRLd fsIYhA8ohIWYyQLVmzffoYEHx xHVbALBrkP14GBOmGVRaXzOom YXpXvMtdJNtOwXaB22vkEaglk 24WZ0ybBDojPQmORJoX3Rfi1N eICKqSTBdgsVgjKHzv0GqtEQt i7HpeTqkk8ReGXVfRXJziHFxU VAxzAbbZZZnJGX9bZOmCYAcb5 xmrNKtyzfgNNZbnNTzG9jkKjC gVGhlIHNwZWNpbWVuIGlzIHN1 Om5ohQJdLZrpEJ7tZfOzBHMsx fCmOLToEDL4ONQFPRLua0NnRj NggeCoOEIjF3Mtn71jIK4yNIQ qra9sefAklECsgsTupAE2mP1r SwKfBxn3WPWzsEQlIDV3CF6wU GWljbsgLPIpNXYvFMP2MWsnxS 11bHQwXGZzMTZccGFyfXtcKlx diXhyj6XfkOJcMBzwELRgEGGt UEteUVAoG9MYMJGcCtNhEzP7U QGnRUn5EOuxB2JKLHVsCPX6Qy d4NOr4MxS4WWk8OLPPJz6mKnD nWhZ4MZD1XNK4TvzpTVdtmHCo IFxcZmwgXFxmIEFyaWFsIFxcZ uLsBSJmXKyeOpJtAS8dmVmpCV QgMVQ2DAXdhkyiFLHVgfdjJET 2EYKfOZAgTILpXBYop1G0WWWa NCebYX2eMDZlSAUuAF6stxAjH SBzi7pahRIvYHShdXEaJJHjFF ppoh5cfAA9YUAdzgWpu8AsiI1 ocRN7BLYkJ0oaikddTcVeRPZt ggTxwDQmtFXyaCA2k4Moi6Q3A FZgE5SnaRnxq5HfM0heLK0iA3 2cw1aetFmxOtSmIrQgCAUwwI8 hcnkgYmxhZGRlciAoMTQgeCAx CnO5CEXvLLGgsSPbdYHpPIPxJ ZVzca1urYE1ECOzsQKrBNLeBV R6AVTvwKHjLlAmQ69aQNRnUM1 pfjQcRHFwf7qhjFHrLCLqVDMq bBChQ7vnTTWdPKPyzlOqkUZpw ZKiDUfsz6VyZSTgi7V0TEKiKS ycoQKfND25IGpuHd47RQXsEH9 0NZYqfAlvPjdxpY4kVFUvIlCZ aGUgdXJpbmFyeSBibGFkZGVyI QyzyjKuYZAcMHA5CU6iYQLpY9 NoNHgmWfPgxPZiIzIwcTY9vIW 0bbOrVjWuV91vTRyhA0W8GSMu p38pnTlwZEVmrRRqmH1bAGhbs Ypkc9SywLbkFAHlQQHrJGCcTJ HerojpiCQwNLR4jC5sogU6mDM ukPztGBUvMEFoW9EfJJQhp3ts BBCqvBRtMTN5rVe0WW0fnuM6W WLzm8B0QEDxbsFrlCKrxjmnkI koYKQ8jKKuPneauSExTUumkVS fo6LmoQyoVYJxKMAnGAYsc8It cDVhiWTzsb7xJFJ7dNFtO2TmL AL8lO2pFymzjI5jOSQaYeNQbZ KwbsKlVHdgBVPkFS4pHXKwAVR 9iecsJQR6IHQtZVYhAFRsdXTl h1MqBQtzSRFymVrucWy3QZHqO M9hkA26zeEzqrGozoMiSpEOCK Biq3QuTsjhHMAefjPpnFsneKc 1bSBpcyBpZGVudGlmaWVkIHNs bJxqwQe7CGUnb8gloRIuOWJiK NRjGXBjKGY7GSyubMCjiQSzYP mmmNRrhYXgPvYPz2FrLAChDXI mgrNiWI4gcJSgL9WeWYEzGKXr cy2sCIRlXMYvseYxVGWmSWTbf g6jsOD4KOCjhECqEFueq2YzbH 2htQT6OYRrZ7obggruFH9lMOG ex2J4QQIiTnD2zmD5sDNjYYKm HYQjpf0ls2x8PPKnlzSkFUOnH VZlGI8xrPdyMMp5RHExEC2JRM YUDFT3PKAfONSwYIXog9Lcrxy ljiSphYZtYIUcGV7jRWMtc4R2 WMBjTBPrKHJ8wnlsMLH2GJHqN FLoYBZ8OZDcRA6iUDV1JYnfsS GtVBstx6SaPbAeCXPyCfNeys6 xcPS6JWVnkjAknQTusxYpnPQg wTYyKNJfTvW2LSrxz9olsizns ZTfsSR7YKHeyYGimTLaUVSwGG 6bECTxd8K1OUXkPYGsAOQ1ino bPGY2CFGkAUFkZSU3KYdtCXPh JWWubWJraA6dIXO5aySaX2Cxz 5UutZLfc3PytZPqEJ9vWQQseC 8wcxjyXpwlKOJfgm9nuQLmXEA mYuIRMGJBXJ2VQSUWPEU3FQSb BFG6evU1bVQpgWCrMYGwsV1jE P6uDmAaYQOxhkuqKT00oxmtMk CqEZysfbUgouOjBG23NHLdurP mjqQogFPbOSTcO5Nrj52yHO4r FCReVFWjlm4ltOU5aKXbTYEer CmqIoZxQjszi4Oub91rBNDkq4 M7GMPrYxUtdq8pyu5iTIJ8zM3 eLUswcDvsu3W5SOYlTN1arnOm roSwGQHpt6Rnt5JecJ5sRbzjP GRlciBlbnRpcmVseSBzdWJtaX T7CCOpwQIekFS0fuNdeHwjwZc aCdozIU4cDZJkpsEoi00qxHhw hkVddAGvx6PlpLolNFPdd9GpR VReC7Gsg45fvZ0uZXWbOXIuzW lvVBPhfmGxwX94vvVul368VK8 8mJpsCcsrQPnmScQrHI8wIKYc Y0k9YIOerUssTOrtrqKvkDDrG NL0EMLcIUuhcZGnjLJyGAPmnj XgMJLfKSAoFPUud0YeiFC8tSD oIGludHJhbXVyYWwgdXJldGVy EpTPQLBqBHZxH2d4CPfegKJzV MxsBkivLHExrnC2NVlhNDtusQ wueW02shDgnALvvIU3niV7NZR 4XIMzMs8eOUnug2DzciOftuHh uqkjlvK3DDrtYBLzrCpbTSk3W XE1Jt9qhUFoBJlzPlNhUEOsg9 FnkGWiRUBjcZYxvkHzN4WriN4 2EZAeUktvBG9nTO8qLQXrp9Rg F4F3BSIkIIoab1epHVAsKSovq 4NyQAzRIFXWFM8FNU3ccGU7DA jQZ8PRM6gSaMHmFJU5sMG6CXL OVzqklGF4vQU2bW10WJGgVKLy xRLmORjsE534UBX6GLVqNQlpp 0yqMPUtNNhsf4GfETiKLAVOVA 8UCY2toTK7RDlQH7WBYNnbNNX mVegpaKKVQJY1BBalhUrmiBg0 h3zskXEjy4e4WCaqZTC5bDfcu FDqzwjywtSuh2bmbGemi3EqaM VsOHoiINGsnIYoOAujtH1xEgJ bc6xzrEp1BUuniqK7DAAhzw23 TBqvXMCcC1MnN7RxTGkmFBK4J JQeAhFvFHNmVW6XAbIbADBdJg PjYpQkALp0EQv3SD6GKrXjDXE eOTy2ATSgDMYnBYm5VXttWK5G MOvySiz8GEBkAqE6RMY6FjNxZ HQgMiBcXGZsIFxcZiBBcmlhbC AgPRAuFGRxVKpoJdEbDOwsC32 cYlxmMCBEOlxwYXJcZjAgTHlt wAqlwj5lZUdwGEybdVWjuQzxv RPefmtxUGBcEIN6EWVhsLEeVl OpoC8gcIIst7EfqyynPuZnTDT fgkVdl5FwHY3nMMUuWHHiD6Bm E5S9JATiSkHuEPvhh8VeUKNfn 0J5EWThYF52SHukKV5lBLhfNQ 58XKOnSE1rmKalASy0CCEnOVd qRIMyLBPraPCiOAbcXYDbV7Ev e03jBYO9mcPaCHBwTGnfTfWjh O1hu5wzzFDsNxHuI28vqfRjUZ ZxyD6rhIXua9HgwbGvlgPbE1b vEuOnwe5fFMFfTcV1reWxLxId I69uhU9yX8EiNUQsq5MdXVwvW Q9fkW7vWJ7teZSkBZVuQnLVUS JREP3SILMVWLP8XRDkTRSsFUE fx7UgGlswKSm8qDYlFA0yBBM5 XRCdZTUuNHCggK2zz1mxlPUey GixiKjqih0nENQwvF8lHUCcgI CaTPNcPJR9RJwyABYkQnNsOBL ddY0jn2bitHCgmEpiiXjtmd9m DVZieTRjH2KrXNKgaiKaGURsY VAfy3AqqHVwJzYTUfJaGkTiVW CiyG3fq5xhlZJhcTunrDhhyq0 dRQD6uymdSNJ8PNO3ZOSkKH7w VNozWRNrv1PgkSAyYXUoeP6zt TPys0WvPBFlc1JcqWTkYYvinp 13OEY0x2lriOAcVLyfQjxrsHW hyhL9HGxTWJBXWNhVFzKhJU6b PUxJTktCRUdJTnwyMTAxNnwyf RGVXZE5KHmqnJgaxGp1r7inqM Suz0j4JHilEPQ1oQCFt7pjcOS yFWywZghbqPRkuwF8MZzNTLSV MGvQXzUbZG6tQQqLAoyQZpO5Q dMyANW6DrhHT1SSyFJ1Hkd6JF q0rXbqGjoluyIolMTqAtAlkQ5 nqMbsqW4pIjYpJLlnSLZxS0Dl Q3ZrfiVifFKgOZKoqiDui8uyY HS4UNYkvPBejVEfAfOkJaqoUB Z3f0smPNHmbTQeCJX0FVkriDF gNTEwMDIgXFxkYiBPVlIgIiBD ABZbNZplTnU5XYk0IIRCDzIdY wGhKWQ4OFRfCpLuOWf2SJl7VX nPBpL8QJL9ZUb6PJGxSIU6JFF qBYc8TBCnNWipuEHpATCpIZSp YWwgXFxmcyAxMCBcXGZiIFxcb hW5IVSkCjNzBQdvjFAoVLBqTM x1mPOkJT2qRQPwlyxjCBTbQ2o 6EEMgWVv2zANrVZGpJ0t3KMCf hBUuRiBmvU1jgL8zFFOxIsegD BTgZ08db7qsjLNmp0KfVD0wRR iqcyPoSLTwYY3lIGNxLOmwNI7 1CDAlQBPmkE5rRKQ8aJPxwXXy ZU6gMUd6uCHgJH9cUXEbBEx4O zNxjCG7LlAvvPYrBowaR25iCf kcdI2hXRVoOpJYaAQvo2IhL4b kYW8mdHUim6NuyUhtfnMoWSKa TOHwjzYuvECxCXAqo7QdrPQbG ITrjB0ahPGos8KgkiOmpeKxG8 myKoJdkx5uDVHjVuX6prD8DdE eU48fqI5rV5MeJXUwz2LkBQpc NN7hzD3fCR6uqKGoVECoXkAWM IPBIN7SBZHXOZY0DBGiJBB6FM Vdc6KeJsckPZt5gHFsBJ8vEXT cPqPSDtvpLCBvz7SfkWEdPNFm aC0ysQXkp7RnhfnoKZZyIJMdy N9kf3mlgQBymVdsxQboki5yYX M0XLJ1SXJ2LALbx2ViIyllYCx 4zUHjEM7yGRVsKdIGDL4qLkcp CGVii2AkfNMyYFKjkM7qlFEmz 6KhNVGat0TlxNMaAGvsULZwC0 twW9Kew7M7rFQ7OIJdRziiENX xb9PctDPuLSEnhT7umZIfx5Ys THZhbPNpG4QsVVglBYZ7ZHX4U ROuDGDev9EqBerwKQu0sCLsQY 1hZVHxd4KxyXusoiFmNrSVOBh wMIcuVETyoI3hs0swiZKgeZkh qZhxcw9sNMJmJGH2tK9rRFOkV RXcgIGvvIVezClcJvysyOJ7GJ rxNewhmZ6qkCCRTCGOAxdVIal cdnGmDC9IAM4HUcKUKP33JpBw INA5H1aNV6APqJN5Uri0YOb2r HwyYxmvrtQqcDLvXwGsoZ0KU0 zwAbqrvZL5QRmfHtldsG7srLJ FBHJOFifZUwnwhwGyDA0XFS0A OC6CoMBqDBV3kWJ8VVMYEbyme FH4jGK1yO10WWWyECHtpKEkQU fjA352MDJeFJliTDAzZbF4UEO cuGKiJWD1QN1eZMPtcgesWPPz ESIsSDR6RSrdtV57gDYbYRHoA RGvwJQovCpyEokihMehs4JiqG HxSBvvWIKpURUdGQdxSZJgI3R VNCIdWsYaEqA4KFMxJCz8NLlj X9ODOBPtHNZ0Vuk8SUI4ZdB0X Qp1JZPIPe2yAlExITG7XJk8EE U0Ppk1GQgjsYZnDBeoFektLUn mIEFyaWFsIFxcZnMgMTAgXFxm QaBhXG8ulGvvPKRsFVJ5FPFql cevZXLGyzB3VGPlKCrwCrIkGX huAgRmTfupLFenLVOpo5uolLL sOQQoIGXfwdUvLP2qtlkjsdko sF1gQDMwLFIekYFzE9xnNahtD WDcQ94do3anwSEsv7JrVBGrhO 6mGOEzrvK4xAT9fIChPVCug6N 1ZSBmcmFnbWVudCBtZWFzdXJp uxwmHI55MGUnWYbyZIfgwgn0u KFkdDHxPoVrN29iyW9cHDtwqR M2GRVwAAYiAOJhxKZkiU7jwbZ pcyByZWNlaXZlZCBvcmllbnRl UJA5cCOkRHsdthWcwML0fPMxt IGbV1umBxVXaTWvmDTgV5yqCB wyUIWjkMkjHHe1CUR8St6idYN lZCBlbiBmYWNlIGZvciBwZXJt WZ2qumQjDWAboBQyjXprqxXsa qBfOIRqMSY6CGKFIF4wYRErv1 ImS6R0RGYqQVoca1vzXUXqTXd mk6CbJYqSVUFMDV2LNW0sfVO6 GBdWB4YOT8wKkNJrGQW7pTT1N AYOIiiumCQ4uXF2eP11RZUwRV ZyqAWbSGkdD299Lcj4BYSdFPc wz7rtVNDrSRufn1PdLSnWCDOR LV7MRZ4mxHF1RWpCR6BFFFgrD POtGsm6pNBTMYC4YAxveKshsS o8t3wtqPIcg4k9JCgyTLJ3tDc ncGNrqtmpfhGhs9blzNjwm3Ao eIKxWCqlOXKsmVJfTUwnaH2uN qSkt1sslDh5DKpgrqF9ZFLndi 28TEmxCGIgN1BhC7TwKSyrZGD 5GEQyImJoJWTbTT9SUrXaUXRa ZaJmVhRuZFx3OJy1ML2DNkCsE DRtEKf0QEL3XIVrUFj9WHaeZD 6BVSklWuBwNZLbBhS9OWI7FXH cXHQgMiBcXGZsIFxcZiBBcmlh bCBcXGZzIDEwIFxcZmIgXFxuY 31cYlxmMCBHOlxwYXJcZjAgVX JldGVyLCByaWdodCwgcmlnaHQ tUqfrWQleWITkq3cgcVLlOKPc AHDynuPcNW9empuekjbcgL6jC VJkZPZsoNAdV9jaMmdkPVGzZ0 3ef2spcJZmd7JeILSnnC1oVRI vldA1kER5kFRkGGPrp7F4VAOz cmFnbWVudCBtZWFzdXJpbmcgM G46RXWzZTocBDnmqgy8yPNjnN QhXgNiI44tpD1lUJsadYO5PYI wWHTmULXxdDLnxK9tvoHqfgYd DDZzoIBrFOWtuwbmwrVyVXO2h MDtWThagmUlkAO5qJVveLDmY8 llXeLTyCRtwPZhR7ckUYrdBRJ slSyjGOj2USG2Th9swRFcZPKg luIkHHEuACOeidBpWDTdHO9we nQgZXZhbHVhdGlvbiBpbiBjYX ExMMC1ACCSDE0yAOXpz2OiB5U 1ZFLiOJlot2auEVQzOIpqf1Oz WMoSMALSGJ2DOG1dyNL6KBaPB 8DXS8jGsLWvMDO9yDJ2JEKCKa spaZL3fQA9aD84UKKiNBWwwEP qKXfvZ076Qpi1NQXeGKyyh2by KTOxVOrfz7EtRAiVOKEYAF7JN D6stXZ9AIaUW4CBEXvxFOTrQv f7xXNAQRM1VRizcMikfKz3g3o imJGtg2h5VCliQHD6fKzkjLRs aombljOny7iknSodq7JyqMUuT U40GFKpaWIvPQX0JD7ygZjiMQ J9 Intraoperative a5hejWRlEHSylLWIGTMbPDksk Evaluation (test code yHbTIXmjEWxU7TjzjcyNFtnUC = [id number]) 3tYY5cbWhhxVEcsKMtHM3MVDG lZmYxXHBhcGVydzEyMjQwXHBh aIGpsMB1BOMrTJ0egsbcIWioH UuuULPgmiD9XJJzuFSiG0QnZU RwIC2ckybgBIQ5EIvexY4yijC BXqxzTb3zkQSveZonFrGbQqKn PJIvJNKoEXDpeMjeUJFfXKf0r L5XAujkDIY5QSXGKeifAVPcMR 6Ow3zfHVRgbMZaPJB6JDqsqIF qBCYjIPIdVXe7FXZbHSsncDPx OJ3bkYpdUpdeuBitw8RgaRQaB JsrHWRjFLUdLJcxHZNkNS0SIo SuQIYuHcNxDhHrOTt4VWf1DD5 ASoFxXEXmAYu2JZXuGqQsCYf0 ICfsNP0HLFqaTvn9RlwkDoP3B BF0TYBeGDGcZhKnJAKrPLHsCS wgXFxmcyAxMCBcXGZiIFxcZmw zEXbfJ83utPnmvW3sUiqrnbMu KRX4GJYkslLZIsjbkIGoqiczc GljTmVzdERvYzEgDQpcbHRycG FyXGxpbjBccmluMCANClxsdHJ jaFxmczIwIExlZnQgZGlzdGFs YZZsTWOlgkSiPJ0bacyqjyfdw EYmET7ALJVfTsTVchP0qY6wtv FvevQdAO17NbjrVIZrPNbPKl6 SYCCuTPvgPDKqpRQWDQP9XB9m IYhcqGQsnvyoTKVnI8ExL7Fma sMcgSZhUYDzofLmw8vaTWK3XF TglRHfdKLxIiVgZxuuNJO4WCz 8SFnlKXJmW6JaP5AnQVruPCC2 MTAwMiBcXGRiICBPVlIgIiBDM UYfGAwgHvQ4QIc2PDACQfYrNy PlOEK0VQEyNiyjVSj9TZe8TWk AAeL2PYY9QyUtPgHzQZW2VREk YEw7ETAqDRzuUXIsdVKiBRpmX nMgMTAgXFxmYiBcXGZsIFxcbm T4ETZcFtSsZGHPVgigEFUpEOq nrWkfiJ7bCCEkY62pp4SEx9Vf SE7FEDq2bnXprgbozC9wATQhj fToDOdqdRQbQ8rzYrUmNOPSpR rmoWJksTX2LFixyBIjjUExQZg fnZTaW6nnPelvLDQqTUmcmVTa CT1zQZA6uR7bSFQaYSLlzyKeF ZFnwuZPMgZDEYpfqEnacV9aGS VfR69ad9MEh2JcQHDyIFszl6u drQtie8LtnJCfYJdhUZRmdVYh AFeznK7cLpKed2lwlTj0BFmft vV7VHZtzl0ZDlwqkJ0tRmBdu9 sytCe9KZIYTsdqilL8l3jcbBo ny0ZucRMlTU4JRn8= Disclaimer (test code e4zcyJCcDRZguIWsHdKvNTTrN = 9844) AMqq3wtQMPjoLJvNtYzMqCmEl ZaPxchvKXwUWPvAqWjr7qer07 8xUSla0veHYZvScP4xTFcXJGl lGGyK895EPYtVIqjl2ysg2ZzB WPuwLOsw5J2PBLXonycsCr4wA rjO76yf3A8QsxbO8wrBWPpYSJ rV7KiYH1bTLBhFik7WKQ3NRG8 BFZpVSTeH5JtVA5gGFJiyCVeN Rs7p6vqsLzyROFoRLM7e0zbMT cbyiVyAY6bjs0zbAd5q8kknpG qCYXkLFXavUENRKTpB3LwcCxq Jt7dcUa0iBsdAbcgXXN1Zko2D L2hzx22hku5wEzwHIBdrwywZo N9OBvgQSMkpfceCBv3JJoqWSR bhUE0VYCjwIZtB9GyHVBxUH2p ycf7MQI2BAxyCIUrNeU7MENul UFnDEWhoCzkRKywa827XPO4Pn ItFF6xD5Rww2A5hE3lgILbWJF xlBAeYtXvLGBdta6lhJTjUXmz v5ZeRPQ8deD8uRVvsVZqADDhZ D28Tukgo6VmHkziHCI3PRXjey Dgc3Vih5zkZqZsxcApZ3yfB5V fNNQtWGAkJRIcLyUhkeGxl9Rk b3LdsDQsxJl3u3ydDSOtGJRud Xhfb9hcEIA7EZOxE6F3hQXfl0 iaTOgeKBRzxOD6tiG1LVVbbRE iQ2KcmO2uKTJnTP6gkmx6u7xp RIM7RWuyAJUdQvM7esT2CXPnz MSkQGHzcQynTXzad862AQE3Gw OpFNMcc3HlK7JquDbsK81isQq mM37tQKBrrKfcqL0pdMyogD8d ZjBcZnMyNFxxbFxwbGFpblxmM JfpfmG5THadrnbbGYKbOXigD4 qfKaNzVBPtyVeoROgft2JdDMU gDIPnCnovlmE1JXKUk79oDMRt c8XfQSEubA1umRTqRMoyegEnt GH8KImqeqOnQoUupyPnRFFcfU 5cOXVvDS2uTPKysyJwqk5oohB xHVYdZIMcN6DlzdouyAvcwbLv TXCxbf5jbtJyJEE5YJDKQD5WW XEcHGNys64lNUKcsRwjxS1rbI UtzkTsIGEla3MkeS3ixLUUVXS rJ1uqWU4iKVjwt8QsfDHvjITn eTC5SVMfc6YrGlZiasXujTEvh EYsZ0ZpyIfbE6urUZAiGATnmu QdfHAsv5UhFEYyxHA2vABjHO8 PUdSKg40eHSDcPJNJnlMqMORj eMjzcZF9smT4gK3kUnRQPiWlg UChbDAbVvvkLSKug547gd2dpu R5PPWuYLIvttndw2PgCRCuWZU dfX06EIAnCWHlnr9vbmbuoBSn ciVeM9Lovhf6pZ7dRNEgXNcqA GYxXGZzMjJcbGFuZzEwMzNcaG chvIlwSTikXpVnWLAqJMirZ4i cZjFcZnMyMlxwYXJ9 MD KellyX-ray Abdomen 2 View AP W Upright and/or Wzqpakyir6325-85-61 11:45:26 1. Mild to moderately distended small and large bowel loops with multiple air- fluid levels in this postoperative abdomen, likely adynamic ileus or partial bowel obstruction.2. Tiny pneumoperitoneum, likely related to recent abdominal surgery.Interface, Radiology Results In - 05/24/2020 6:47 AM CDTFULL RESULT:Examination: XR Abdomen, 2 Views, 05/24/2020 6:23 AMClinical History: Bladder cancer.Indication: Abdominal distention.Comparison: Portable AP abdomen, 05/22/2020.Technique: Supine and upright AP abdomen, 05/24/2020.Findings: The mild to moderately distended air-filled small and large bowel loops are again noted throughout the abdomen. Multiple air-fluid levels are noted in these distended bowel loops. Tiny free intraperitoneal air is present under the right hemidiaphragm. No radiopaque calculi are seen. Mild degenerative changes and minimal levoscoliosis of the lumbar spine are noted.Bilateral ureteral stents drain into an ileal conduit. A surgical drain remains in the pelvis.Bibasilar lung radiopacities are present. No pleural effusion is seen.IMPRESSION:1. Mild to moderately distended small and large bowel loops with multiple air-fluid levels in this postoperative abdomen, likely adynamicileus or partial bowel obstruction.2. Tiny pneumoperitoneum, likely related to recent abdominal surg geoffrey.MD KellyVRGwendolyn Vbfgnkj1826-01-97 00:42:31 Test Item Value Reference Range Interpretation Comments Final Report (test No Vancomycin resistant code = 8488) Enterococci isolated Path Review - VRE The results have been (test code = 8485) reviewed and electronically signed by Pathologist:ANDREW UGARTE MD #[id number] MD KellyQxozzgaoXrlkfoftrr0230-07-70 01:48:29 Test Item Value Reference Range Interpretation Comments Hct (test code = 5860) 24.9 % 40-54 L Lab Interpretation (test code = Abnormal 92935-3) MD KellyOhbuqkkgFtbycumwjo7923-35-31 01:48:28 Test Item Value Reference Range Interpretation Comments Hgb (test code = 5898) 8.2 See_Comment L [Aut omated message] The system [employer] generated this result transmitted ref erence range: 14.0 - 1 8.0 gm/dL. The refe rence range was not u sed to interpret this result as normal/abnor mal. Lab Interpretation (test Abnormal code = 35260-8) MD [facility] Glucose Pclxgs5549-78-82 10:41:13 Test Item Value Reference Interpretation Comments Range POC Glucose (test 131 mg/dL 70-99 H RN Notifie dCapillary code = 89502-6) blood sample s, e.g. obtained by fingerstick, ma y have inaccurate resu lts in patients with decreased perip heral blood flow. Met hod description: Al l results are tom sured using Electroch emistry test methodolog y. The glucose in the sample mixes with the reagents on the test strip. The reac tion produces an maribel ctric current. The am ount of current produce d is proportional to the glucose concent ration in the blood. PO Sample Type (test Capillary code = 9554) Performing Lab (test MDA [facility] code = 99871) [facility], [address] [place] [address], [place], [place] [address]; Human Resources Coordinator: Ana Santana MD Lab Interpretation Abnormal (test code = 51696-3) MD Mckeon Vcs4109-35-12 08:33:11 Test Item Value Reference Range Interpretation Comments Anion Gap (test code 8 See_Comment [Autom ated message] The = 9325) system which ge nerated this result transmit antonio reference range : 4 - 14 mEq/L. The refe rence range was not used to interpret this result as normal/abnormal . MD KellyGlucose, Ctrojz4278-88-35 08:33:09 Test Item Value Reference Range Interpretation Comments Glucose Random (test 141 mg/dL 70-199 Effecti ve 09/13/15, the code = 9360) glucose referen ce intervals have been updated based o n [place] [employer] edwardo delines (Standards of M edical Care in Diabete s 2016. Diabetes Care 2 016; 39: S13-S22).Fastin g blood glucose:Normal: 70 99 mg/dLImpaire d fasting glucose (increa sed risk for diabetes or pre-diabetes): 100 125 mg/dLDiabet es mellitus: >/=1 26 mg/dL Random blood glucose:Normal: 70 199 mg/dLNote: Random glucose >100 mg /dL is associated with increased risk for diabetes MD KellyChloride Fakxt9480-63-96 08:33:08 Test Item Value Reference Range Interpretation Comments Chloride (test code = 106 See_Comment [Auto mated message] The 5862) system which ge nerated this result tra nsmitted reference range : 98 - 107 mEq/L. The refe rence range was not u sed to interpret this result as normal/abnormal . MD KellyPotassium Ptuvp9172-24-07 08:33:05 Test Item Value Reference Range Interpretation Comments Potassium Lvl (test 3.9 See_Comment [Automa antonio message] The code = 6854) system which ge nerated this result tra nsmitted reference range : 3.5 - 5.1 mEq/L. The reference range was not u sed to interpret this result as normal/abnormal . MD KellyLactate djwzsjksihtta8054-86-77 08:33:03 Test Item Value Reference Range Interpretation Comments LDH (test code = 195 U/L 135-225 Results gre ater than 1651 6111) U/L may not be reliable due to matrix effec t with extended diluti on as it exceeds the man ufacturer s recommended l imit. Caution should be exercised when interpreti ng such values and done in conjunction wit h clinical context. MD KellySodium Ckklr5220-32-53 08:33:02 Test Item Value Reference Range Interpretation Comments Sodium Lvl (test code 138 See_Comment [Auto mated message] The = 0094) system which ge nerated this result tra nsmitted reference range : 136 - 145 mEq/L. The refe rence range was not used to interpret this result as normal/abnormal . MD KellyCarbon Dioxide Fzfjz2424-82-08 08:32:58 Test Item Value Reference Range Interpretation Comments CO2 (test code = 24 See_Comment [Automated message] The 6608) system which ge nerated this result transmit antonio reference range : 22 - 29 mEq/L. The refe rence range was not used to interpret this result as normal/abnormal . MD Kelly.TEG Path Review Ddxqz5407-04-66 16:51:56 Test Item Value Reference Range Interpretation Comments TEG Path Review PLEASE SEE TEG Final (test PATH REVIEW 1. code = 7529) __JIMBO ROY MD, PhD - [id number] b y: JIMBO ROY MD , PhD - [id number] D ate/Time: 05.21.2020 11:5 1 AM CDT Transcribed Osei e/Time: 05.21.2020 11:5 1 AM CDTElectronical ly Signed By: JIMBO Vela MD, PhD - [id number] on 11:51 AM MD Toribio RBC:ICU green pod F, 1 Gybfe1313-97-86 14:13:58 Test Item Value Reference Range Interpretation Comments PRBC Product Ready 1 Red Blood Cells (test code = Available - 37386-4) Order Form 03 when ready for product issue. Unit Number (test [id number] code = 7002) Product Code (test [id number] code = 7003) Unit Expiration (test code = 135374) Unit Blood Type 6200 (test code = 7004) Product Code Text RBCIRLR CPD AS1 (test code = 500mL 017166) Crossmatch Expiration Date (test code = ) Unit Irradiated IRRADIATED (test code = 599117) Dispense Status ISSUED (test code = 7001) Unit Blood Type A Positive (test code = 7005) Product Dressing Room Attendant .BPAM ____ Location (test ___ code = 087740) ___ ____ MD KellyTara Interpretation Jigmjpyobb6213-50-53 14:10:01 Test Item Value Reference Range Interpretation Comments TMP XM Interp RBC units (test code = crossmatched for 7566) transfusion appear DWAYNE KIRAN acceptable. MD LULU - [id number] b y: FREDDIE NGUYEN MD - [id number] Date/Time: 9:10 AM CDT Transcribed Osei e/Time: 05.21.2020 9:10 AM CDTElectronical ly Signed By: GINNY LAWSON MD - 1 2005 on 05.21.2020 9:10 AM Beatrice KellyRBBeatrice Product Ready for Pick [id number] 13:20:03 Test Item Value Reference Range Interpretation Comments PRBC Product Ready B2 Blood Bank Product is ready for for Dressing Room Attendant (test crop picker on May 21, code = 588284) 2020 08:19:46 CDT. MD Kelly.TEG Path Review 20:45:49 Test Item Value Reference Interpretation Comments Range TEG Path THE RESULTS OF THE PLAIN ___ Review 1 AND HEPARINASE CHANNELS ____ (test code ARE SIMILAR AND XI AOPING = 62705-2) INDICATIVE OF SLIGHTLY Cassia ROY, PhD - ENHANCED INTERACTION [id number] ctated by: BETWEEN PLATELETS AND NICOLAS ROY MD, PhD FIBRINOGEN. SUGGEST - [id number] ictated CLINICOPATHOLOGICAL Date/Juma e: 05.20.2020 CORRELATION. 15:45 PM CDT Transcribed Date/Time: 15:45 PM CDTElectronical ly Signed By: ANANYA ROY MD, PhD - 1 0878 on 05.20.2020 1 5:45 PM MD Muniz Fxg3295-79-09 20:01:45 Test Item Value Reference Range Interpretation Comments TEG 1 Date (test code = 05/20/2020 7517) TEG 1 Time (test code = 1249 7518) T1 SP HEP (test code = 4.7 minute(s) R HEP minus SP HEP 7453) (0.7 - 1.1 napoleon kalpana) T1 R HEP (test code = 5.2 See_Comment [Auto mated message] 9678) The system [employer] generated this result transmit antonio reference range : 2.0 - 8.0 minute(s) . The reference range was not used to interpret this result as normal/abnormal . T1 K HEP (test code = 1.2 See_Comment [Auto mated message] 7446) The system [employer] generated this result transmit antonio reference range : 1.0 - 3.0 minute(s) . The reference range was not used to interpret this result as normal/abnormal . T1 Ang Hep (test code = 71.2 See_Comment [Au tomated message] 7437) The system [employer] generated this result transmit antonio reference range : 55.0 - 78.0 deg edyta. The reference r cuco was not used to interpret this result as normal/abnormal . T1 MA HEP (test code = 70.6 mm 51-69 H 7448) T1 G HEP (test code = 12.0 See_Comment H [Auto mated message] 7444) The system [employer] generated this result transmit antonio reference range : 4.6 - 10.9 K d/sc. The reference range was not used to interpret this result as normal/abnormal . T1 EPL HEP (test code = 0.1 % 0-15 7442) T1 CI HEP (test code = 2.4 -3.0-3.0 7440) Lab Interpretation Abnormal (test code = 98022-2) MD Muniz [id number] 20:00:47 Test Item Value Reference Range Interpretation Comments TEG 1 Date (test code = 05/20/2020 7517) TEG 1 Time (test code = 1249 7518) T1 SP (test code = 4.9 minute(s) R minus S P (0.7 - 7452) 1.1 minutes) T1 R (test code = 5.3 See_Comment [Automate d message] 51096-0) The system [employer] generated this result transmit antonio reference range : 2.0 - 8.0 minute(s) . The reference range was not used to interpret this result as normal/abnormal . T1 K (test code = 1.2 See_Comment [Automate d message] 26880-9) The system [employer] generated this result transmit antonio reference range : 1.0 - 3.0 minute(s) . The reference range was not used to interpret this result as normal/abnormal . T1 Angle (test code = 73.0 See_Comment [Auto mated message] 7438) The system [employer] generated this result transmit antonio reference range : 55.0 - 78.0 deg edyta. The reference r cuco was not used to interpret this result as normal/abnormal . T1 MA (test code = 71.9 mm 51-69 H 24047-0) T1 G (test code = 7443) 12.8 See_Comment H [Au tomated message] The system [employer] generated this result transmit antonio reference range : 4.6 - 10.9 K d/sc. The reference range was not used to interpret this result as normal/abnormal . T1 EPL (test code = 0.0 % 0-15 7441) T1 CI (test code = 2.6 -3.0-3.0 7439) Lab Interpretation Abnormal (test code = 52104-7) MD KellyPartial Thromboplastin [id number] 18:13:51 Test Item Value Reference Range Interpretation Comments PTT (test code = 34.9 See_Comment [Automated message] The 6773) system which ge nerated this result transmit antonio reference range : 24.7 - 36.8 second(s). The reference range was not used to interpr et this result as micki l/abnormal. MD KellyProthrombin [id number] 18:13:50 Test Item Value Reference Range Interpretation Comments PT (test code = 6746) 15.7 See_Comment H [Auto mated message] The system [employer] generated this result transmitted ref erence range: 12.0 - 1 4.3 second(s). The reference range was not used to int erpret this result as normal/abnormal . INR (test code = 5973) 1.28 0.90-1.10 H Lab Interpretation (test Abnormal code = 66147-5) MD KellyOR ABG+ (ABG, Na, K, Cl, Glu, Hct, Lactate, Ion Ca)2020-05-19 13:32:58 Test Item Value Reference Range Interpretation Comments OR Sodium, arterial 138 See_Comment [Automa antonio message] (test code = 2947-0) The sys tem which generated this result transmitted ref erence range: 136 - 14 6 mEq/L. The refe rence range was not u sed to interpret this result as normal/abnor mal. OR Potassium, 3.8 See_Comment [Automated me ssage] arterial (test code The syst em which = 6298-4) generated this result transmitted ref erence range: 3.4 - 4. 5 mEq/L. The refe rence range was not u sed to interpret this result as normal/abnor mal. OR Chloride, 104 See_Comment [Automated mes ema] arterial (test code The syst em which = 2068-) generated this result transmitted ref erence range: 98 - 106 mEq/L. The refe rence range was not u sed to interpret this result as normal/abnor mal. OR Glucose, arterial 145 mg/dL 70-105 H (test code = 2339-0) OR Hemoglobin, 12.1 g/dL 13.5-17.5 L arterial (test code = 11970) OR Hematocrit, 37 % 42-52 L arterial (test code = 24332-3) OR Lactate, arterial 1.2 mmol/L 0.4-0.8 H (test code = 40013-7) OR Ion calcium, 1.12 mmol/L 1.15-1.29 L arterial (test code = 1993-04) OR pH Art (test code 7.37 7.35-7.45 = 2744-1) OR pCO2 Art (test 45.6 See_Comment [Automate d message] code = 2018-) The system [facility] generated this result transmitted ref erence range: 35.0 - 4 8.0 mmHg. The refer ence range was not u sed to interpret this result as normal/abnor mal. OR pO2 Art (test 104 See_Comment [Automated message] code = 2703-7) The system [employer] generated this result transmitted ref erence range: 83 - 108 mmHg. The reference r cuco was not used to interpret this result as normal/abnor mal. OR HCO3 Art (test 26 mmol/L 21-28 code = 1960-4) OR Anion Gap, 7 mmol/L 7-16 arterial (test code = 9327) OR Base Excess Art 0 mmol/L -2-3 (test code = 1925-7) OR O2 Sat Art (test 96 % 95-99 The ABL9 0 Flex Plus code = 6532) analyzer is an in vitro diagnosti c portable, autom ated analyzer that measures pH, bl ood gas, electrolyt es, hemoglobin, glu cose and lactate in whole blood. This kristen lyzer uses the methodologies n oted to perform quantitative measurement of the parameters list ed when tested.1) pH, pCO2, K+, Na+ a nd Cl- are measured by potentiometry. The potential of an electrode chain is measured by a voltmeter, and related to the concentration o f the sample.2) Gluc ose and Lactate are measured by amperometry. Th e magnitude of an electrical curr ent that flows thro ugh an electrode chain is proportional to the concentration o f the substance that is oxidized or red uced at a electrode in the chain.3) pO2 i s measured by opt ical pO2. The optica l system for pO2 is based on the ab ility of O2 to reduce the intensity and t tom constant of the phosphorescence from a phosphorescen t dye that is in cont act with the sample .4) Hemoglobin and sO2 are measured by spectrophotomet ry. Light passes th rough a cuvette that contains a hemo lyzed blood sample. T he absorption spec trum is used to calc ulate oximetry parame ters. FLOW/ FiO2 (test 50% code = 5568) LANEY (test code = FiO2 (%):->50 LANEY) Lab Interpretation Abnormal (test code = 29181-7) MD KellyCOVID-19 (SARS-CoV-2) PCR-Asymptomatic [id number] 21:48:48 Test Item Value Reference Range Interpretation Comments COVID19 (SARS Not Detected Not Detected This test is a CoV-2) Result qualitative (test code = reverse-transcr iptase 95225-0) polymerase sakina n reaction (RT-PC R) developed for t he [employer]ITH 680 0 system and inte nded for the detecti on of SARS CoV-2 RNA in human nasophary ngeal specimens from patients who me et COVID-19 clinic al and/or epidemiological criteria. This assay has been approv ed by the FDA for use only under Emergency Use Authorization ( EUA) in laboratories that have been CLIA-certified to perform moderate-comple xity and high-comple xity tests. The performance characteristics of this assay were verified by the Microbiology Laboratory at [facility] [place], CLIA Accreditation # : [id number] and CAP Accreditation # : [id number]. Result s must be interpreted within the context of all relevant clinic al and laboratory find ings and should not form the sole basis for a diagnosis or treatment decis ion. "Presumptive Positive" resul ts are due to partial amplification o f SARS-CoV-2 targ ets and indicates l ow amounts of viru s present in the specimen at or near the limit of detection. Regardless, individuals wit h "Presumptive Positive" resul ts should be manag ed per institutional guidelines as individuals pos itive for SARS-CoV-2 virus, including use o f appropriate inf ection control protoco ls. Internal contro ls are included to ass ess for possible amplification inhibitors. If inhibition is detected, testi ng is repeated and if inhibition is confirmed the specimen is res ulted as "Invalid". W hen an "Invalid" resul t occur, it is recommended to wait 3 days before submitting a ne w specimen for te sting if clinically indicated. COVID19 SARS ADVANCED QUALITY ENGINEER Swab Source (test code = 08151) COVID19 SARS Pre-OR Procedure Indication (test code = 25059) MD Kelly[facility] Interpretation Exception PreOp [id number] 18:20:49 Test Item Value Reference Interpretation Comments Range TMP Exception Patient's pre-op Type ____ (test code = and Screen shows no 7543) evidence of RBC FL EUR MIN alloantibody(ies). 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 12:20 PM CSTElectronical ly Signed By: NALDO SMITH MD - [id number] on 04.26.2020 12:2 0 PM MD Membreno [id number] 15:31:42 Test Item Value Reference Range Interpretation Comments UA Color (test code Straw Yellow = 7877) UA Appear (test code Clear Clear = 7868) UA Glucose (test NEG NEG mg/dL code = 7881) UA Bili (test code = NEG NEG 7871) UA Ketones (test NEG NEG mg/dL code = 7884) UA Spec Grav (test 1.006 1.002-1.035 code = 7894) UA Blood (test code NEG NEG = 7872) UA pH (test code = 7.0 4.5-8.0 7909) UA Protein (test NEG NEG mg/dL code = 7890) UA Urobilinogen NEG NEG (test code = 7903) UA Nitrite (test NEG NEG code = 7888) UA Leuk Est (test NEG NEG code = 7886) UA Comment (test See Comment No microsco pic exam code = 8512) performed, physiochemical findings are valente [facility] [id number] 16:59:00 Test Item Value Reference Range Interpretation Comments Materials Received (test o6pcoTLpLWGvyBFnBaLt code = 9973) HVYgOATnq5pmTVRrrHTs ZzEwMzNcZnRuYmpcdWMx TFZjRmFus5iwe989mLEf f5erOBCeRtY9wHFaUMTu yQHhW005TSPvUGvke3qt e0UiKGXcnZSpi8R7EVHG gamzaVx9yClpE09ad3P5 RoxoM2sqGEMvBVOeD2Rb KZ6tUUVdBdx2RVB9DUZ3 YOMdGNOcE7KkHF3tQXPr rKCdWMf3f2zqwKixSZHo DPQ3o3dxWHktubQoFY3a of7bjPf9n6fxklVuYDXk UFDelYQGINNgK7HpkLdn Tw9imZl7jOorQbwtNEJ3 Pxa0IY5zvk00mea4eVgf HBMuryyqVmC0ZRccANYf zzziTTj9WFnvYAEglDik MFxtYXJncjcyMFxtYXJn dXH8ONCkuXVzF9FoHKZk HOlxTPJxyjx0FmTxZq4q hTHobRknBNprz4gqm3oc nVTvXwk9RLIkCwHrUfdz SOjlc5Soe3qfVBDkzs3v PSP1eEQxxKddl3O9uDPp YKUbgPFnvbBzDRGvgg99 sCHttHUnlSNttz0yqdKv kLLooSCfYHZ5fCKbhsQd KUMniVPkRKSrRI4weLKz RYOcpU1khbswQJKmLwSp ucshTLCtvIfjcmYdZa4z hEiqROG9QVwfO2fukY2g KiU4FTzgF3uikK9vXMq4 CKjkdTK7UQQitC8cOY3v yzgkw9wlRkJzIQ0fxngv j4pzLrXcYN0pvel0g3db OJZ9BGrtLVEpBpJ7etQ8 NDBcaGVhZGVyeTcyMFxm p927DJW5GhDzXNRag3Ge N2DlhHvmT14xqSfbZ65p IDTesTzgaG6zcFgmdZ7w MvGdEmDoEPp5av56JDv9 vrpwfEovOLw4hlVnKIIa TSY1HVZqoLGlSDXiB1k4 ldUlJFDhSDY8ONVrwYVw EFChW9h9pnMuZYK0AXy8 cnBhZGRmdDNcdHJwYWRk YjBcdHJwYWRkZmIzXHRy pILakDYxdNDvcO0anCuw IAHbjPSdsN4jJXJ7IKIf cmgzMjBcdHJoZHJcbHRy yq09XVIicbGiiAWwtNqd mVZcFWO2KFTdOJKfPMCi LKK2JPLoBhHkabVaJAgu bGJyZHJiXGJyZHJzXGJy IWT5PDUyTaVjxmYmSJtw bGJyZHJsXGJyZHJzXGJy ZED8OIXwGkTrrxHhUJqs bGJyZHJyXGJyZHJzXGJy BYU8ZGRcZkFetiNhWNtr bHBhZHQxMFxjbHBhZGZ0 F7yifPWkXUVbISfhfHVv FGDeR0vbwCRtCXnyPCOs cGFkZmwzXGNscGFkYjBc E3xoIZUcSbCzB8SkyRv9 MDAwXGNsdmVydGFsdFxj kLAeACI8XRPyILSbCXZm DZZ7NAGdAyRkvjCkMVjz bGJyZHJiXGJyZHJzXGJy QCA4DVYuAdUpnaNlGKwy bGJyZHJsXGJyZHJzXGJy LRQ6SKVxOlLkbzMsXEbv bGJyZHJyXGJyZHJzXGJy FSV6EEVvNmSbfmOgFWwj bHBhZHQxMFxjbHBhZGZ0 E3tevTJbCSCyRSdglDAj QBAyM7bufVByJJgoPTWb cGFkZmwzXGNscGFkYjBc P6rdODRvAxUdK3HjdKh5 NjAwXGNsdmVydGFsdFxj lQQdSVA2PHVzPLMoNHNe LQZ2MLDwNjSvykTwEAkp bGJyZHJiXGJyZHJzXGJy MQD0STDsVgZzeeCcTTpf bGJyZHJsXGJyZHJzXGJy EVO1NZKaIzZsviVoPGdp bGJyZHJyXGJyZHJzXGJy ARA3WOQjXsNuhuYjRKeg bHBhZHQxMFxjbHBhZGZ0 J7vyxIGgFAFuOItsjVOt DFVhZ0thfIRjBTopIJOo cGFkZmwzXGNscGFkYjBc H3opWAUrDeYuJ4FsnPf0 ReAcYRVszgNwhD07Tect m0GsBMVuYSC9HSonXXkm bFxwbGFpblxmMVxmczIw YTkribwsFMArSMwiZ8um GdGoIGPytZdsJFryn7Vs XGYxXGNmMlxmczIwXGIg DDBeSHGdnK5yIlyvM2Fb uP0xQOhkSxdrC2kwAMEa n4GnoQ5fKXceuASmskuh MVxmczIwXGxhbmcxMDMz PVulE8dtUsBwTMJssRje XTuvg4RcATZnWQVyPlzd reIgIRd9hxDnETLpgOyq wYDkUKpqsgJzrDqtr7Nf rrHeoBjbTIDwUYk0fyBk luwbfRk3dESpbKzzOVCe sWeypS7aGfYcPhBdDKng bGFpblxmMVxmczIwXGxh xfdiFZKdXYpvS3kmLaZu DBRjiNtgCZzvj6ReKCQe FZSrMplnccCgRKWnF97g bGVjdGVkXHBsYWluXGYx XGZzMjBcbGFuZzEwMzNc aGljaFxmMVxkYmNoXGYx WCtmL9ajKoAnF1DmAXZq RqNnnJJuN4feI4AowAog YXJkXGludGJsXHNzcGFy THU9wCDegeWnhGAkuZGf WTNgCFmnVPF5pPUpmxgw zKOineggCEidvuL6EFNh YWluXGYxXGZzMjBcbGFu ZzEwMzNcaGljaFxmMVxk LaXlEVReXApaJ0eiMsWw F6FtKTRpFkPkWjDKFAVj aXZlZFxwbGFpblxmMVxm czIwXGxhbmcxMDMzXGhp O3aoCwPrXRVysJvbWWbz v2EeCQCkGOBmEuvycgDq EGr3znOjLLPejBpvrW24 Rszwqn48DZFxz3ijQBHo N6PakJObRSIjjYWpHQlr MDhcdHJwYWRkZmwzXHRy cGFkZHIxMDhcdHJwYWRk ZnIzXHRycGFkZHQwXHRy zBXuHRI2T5i7hmNdRPQb WNq9sfLySEIjZiFkaVDy TNF3OQi8HxwvdaE5jEMz I3k5FkzajuStTZzznUMl sx50FCHvmoYpiCCvtFtm lTAtUJD1JVWzXZMxRHEq MNO4MBSoGfTqhbQpQFrr bGJyZHJiXGJyZHJzXGJy ERD8FJOsTlXcffBbBXdn bGJyZHJsXGJyZHJzXGJy WPI5MOXlBsZtzkGbBCnn bGJyZHJyXGJyZHJzXGJy RJJ4GYKcEoNafpNpJPyt bHBhZHQxMFxjbHBhZGZ0 M5kjpVDlLVSpMYjxtFAp WXUfY5slwFBlXRflAPAx cGFkZmwzXGNscGFkYjBc A8xjRFZfUmEsC7TxbYy0 MDAwXGNsdmVydGFsdFxj cQFqCEF3NLJhVCLrCAUh USS3YQWgDqPodnTdAAxu bGJyZHJiXGJyZHJzXGJy NYL9YLEtTuCttmRmJUfm bGJyZHJsXGJyZHJzXGJy PLB5VJAsIyPakmCfPCpr bGJyZHJyXGJyZHJzXGJy REA0SKOsMdOpomUtSEra bHBhZHQxMFxjbHBhZGZ0 X9iqaMGqWENfFSkbhBAt JUKaL0iyyGTaAKecZWGl cGFkZmwzXGNscGFkYjBc M3ucDXKjEiGsP2UzlUi9 NjAwXGNsdmVydGFsdFxj cMUmPQG8PYBpNEKbMLQs LIS9HRPeLjNpnkDfOXks bGJyZHJiXGJyZHJzXGJy FZD4EMEuWzAfeqPyBXpl bGJyZHJsXGJyZHJzXGJy VTW1JPKaQpVmutVwARyc bGJyZHJyXGJyZHJzXGJy UVY8CZLuZtDbpbFoDXoe bHBhZHQxMFxjbHBhZGZ0 R2avbNXmSYXlTJtviLFm XUBtB4ecqMDpTXkhUMDi cGFkZmwzXGNscGFkYjBc L2aqTYVxMfGnK3SunZs4 NrNqUGQqxxAzgI16Nzsi n6UdZGTzZER2XXpsZQdv bFxwbGFpblxmMFxmczI0 XHBsYWluXGYxXGZzMjBc bGFuZzEwMzNcaGljaFxm ZIypEoYdBCRbJJuiF7ro McKfS0UwUAVyHzToUD7u LmX2KXJmOFi8FEH3PJUD HSBjTCNDS7RFIbzdHGIZ D9PreUCrAWChTTBjRnxY MIAaPiezWLFhA7WvDNVo EqrTE9fEXPWiUQHWF6jv OKJeEv9gJvF6XRAnUFvc GBWWQcmpGTQOCU1RW4Jh IDAgVVNTXHBsYWluXGYx XGZzMjBcbGFuZzEwMzNc aGljaFxmMVxkYmNoXGYx CLygG3qlCyMyC6SzGEDo XuIwsYTmT2fsB2AnaOae YXJkXGludGJsXHNzcGFy CJP3eBYvheJpdOrnfEzn jP6uTvKiXhCoDUikjPXd blxmMVxmczIwXGxhbmcx MDFwACtbU4qoInYtFWDw gBeuOEgbb4OoFGCjMOAv HsvjnuCwSMzlCV0qOFMp ZNDkefLyWt08WxVhBqSh cGFyIDEvMTIvMjAyMVxw bGFpblxmMVxmczIwXGxh xfswQHIbPHbqK9fcTwYg NHZxcRfgRWbbu5HuIWTc BVBpSlhjflAtVLh4jjRo XGNlbGxccGFyZFxpbnRi eGbmv9BdzdIoqBwtMQRx XHFsXHBsYWluXGYwXGZz RmPuhTupeR2kWzSbFaAs KXfaVT4rTZYfF2smiWGp NIRfNZNhS3ugTfPscU7u aFxmMVxjZjJcZnMyMCAy MxYdHqNkHKtjVDJsJs8z IqSxMsVpyJCiKTOlTP0o MDIxXHBsYWluXGYxXGZz MjBcbGFuZzEwMzNcaGlj aFxmMVxkYmNoXGYxXGxv Z9gkYiQoK7XpTYCdJnBe aUFxE6jsG6WrwBntcgJa xVvma8kgjUXqFFnmi0Fo cmFhdXgwXHMwXHFsXHBs YWluXGYwXGZzMjRccGxh rW7tGjMuGjXtPLyfXX8e FVIjA6nrqQOnLMHaXFCy C8oaApYbfV4ndOnkEJte czIwXHBhcn0= Addendum 1 (test code = o5ozkJOiYKCjiUD5MnJd 37) UAWzz0yzx0ChwAOixNWi TQftsVHfchJgsc48tMU8 rS04ZT9sODFxRyA8OIOd sxL3Nqe5QHBjHWJbjBSv K755j6rwz6rshxStlKN4 fVxwYXJkXHBsYWluXGZz AlSrNJ65HXS8VIX6zJAi k5Bnl50zf1WsSJ1BNK1b k85jwDIrTDEpnKArqvYu yq09YYgxglVzsrV3mN8w dwHwjKWscS59ut9xpPZ4 g1DuXV9tg5TgiK3fvYwh XGjfdW5fLWhvjSUeu2Ma ka30bMCsw0Zxq3YazF9q MBwhjySmbPNoLr1hzXMr FU7fEBVgW3Oys56iUQOj d44iHe8uiACqqB5jJwz7 HFLmhQNuXLLtnS2mXJ8p ZWRkZWQgdXJvdGhlbGlh hOTnUXHauL0hfWTnICRn c1ZyVYQpPEK6tOPeQMRj yMsif5KgYLKjZx6zLJPb AOEMYoJcfLscmFF9B9gc cmVwYWlyIGVuenltZXMg TUxIMSwgTVNIMiwgTVNI MqMjhcQrJW9RIm0hTU68 AZE5TP41T6lrZPKcAUzd cvEqj5dvthPedaGcychl ER44CLAreqHpdAluDq33 bnBiMkQ2tTMkZDOsly51 DIqdhcFmwiEzPRAkmK3x fGXqO3PmnZCzTA1sJTwm VM1ufu0hCU7dyJCoxDmx GCUgnQeiVPUsEWQbo5Ke cjXtVVMcnJ31EQLqSYgz F34qzAHdbAGrQBDkAPXq Te7bHQzbwCorVTdyt1Jh lJjyb3Udf5UfAKMuFUF2 aXZlIEROQSBtaXNtYXRj aCByZXBhaXIvaGlnaCBs SMLcdUBda5IfpGxzsq7n KLKhxFgsjAUaeF2ytOJv hNtroAxnNZ4DRT8KTFGk baE3mUGjuSBmk3UqtYNc zX30OiemVSRnfVHkSAT0 dS0sEGGrnKmnSDWiYHTa b9KmaRu1STEhk4OcPJCN RZ3exULqAUEuddFXnS9l azogQjJcbGluZSBIRVIy IUtsleTaXB15nSDcGCqf Y7icxkY0ARZNOQZuQySl oIBjFSLIWBPJE9GLJVag qJ1vPEGbz6s6bJZfPLKn y5QuIUUzBYD4uY6wZXS6 lBIcGJWuvxO6tVFmkyLs fBhuyQRmVF5jctZjQQSr nJGxiexuBlM0gAR0RZbv IGNvbXBsZXRlLCBpbnRl nkGsPRBnrjKkd9p1hLrm GU3kVHIni9ZhiWUuf3Ie W4FybUDfPOCqm4JzKGOd RD8bSfDuCDSuoeWiI8Av ZXMgYXJlIGRlZmluZWQg LXQquRbsq6Zju7n5kWKk byBvYnNlcnZhYmxlIHN0 IRuauG8tFKXxfs9egOLv HE8rIGF4RUwwcK1lLDZn EFIufNClbD1mr82otFL6 ZSBhbmQgaXMgZmFpbnQv PyVqTWz2IMPfnnRafUZm KtotNNJyVGQ8gZKxgO6h xLAmphD9jORwGP3vNCFw dWFsIHRvIDEwJSBvZiB0 tV7ddoYpZZfsyrHeJ1Gh dcZiGIacc3QbxO5pu04m yPU3PTYfBM0kywFdRBYz eXHrvgkxXgX1jQU5DMrs VKDpyM12X6NnliUhcZMy HDYdWUY6hPDoGUJmhyYu e8i8nNfrCB2iBLIur3Lm iILyp3WtB4OowTErJEFf o9ExASHvFN4hEWE0nISn W2ArWQ7dZYryBIR3LHMh eC3jrYQlM5OoSMPkIUUz RRBjq3IbNTabpXllM56c cGxldGUgbWVtYnJhbmUg m9KtoN5atjrkcXhnoNJo vmF6DODdE36gEODiTUIo ZDPhTLM9rHCwsP1eBlOa QIVsPtD7eB4aqwAxMJyg ihWdfvFtp20nzIE5CVNt ucNwF2pmE6JaXpToSL64 aXFpVY0iqHPdUI5iFIY5 ZUkudS9gIPKcDVZolHVc yA50RK9rOINqazSuc2i1 lEvaQRsjy7MjjSbukfRs ilFtdVPukOJ3cfGsYKDm v0IbrRCpk4KiI4VwiVIt WGGls6UuXIZmVD7jrHxn EYAITCEbpgRbM5LlX60x MyUdMNYyLCorCVrdX9dh biBPbmNvbCAzNjoyMTA1 GEFdYLBiMLY2MSmtjeXi sHodMDJMIVCvTELdr8Va yVC5WP8bA2C1fNIeZOzz chXqn8j0HWRfr16mh07w xgMfKmQMr1BroHp4HGGc sh3eMEapuiDjmXPrNRZu bXBvbmVudClcbGluZSBI NJIlXHQlv6UvFbMmAXsj cqPvk2q7RXZfw57fj66y piNfFwDjGuDhfg2yDTfj dmFzaXZlIGNvbXBvbmVu wKvtvYrdXEbhmF6jYGYm i5Mqs3AqPMpplyGcR4Ex Z3hjUS3sAADwEIOmSi3r DEWpjWYggEfpqP7oYFDh t2mgg0J1wYGxDnGuuzVo eZZ2aFSqBH8exgewtvVu YXJlIGZpeGVkIGluIGZv ib9fiQdtSGLncrAnqBAf SSOlnBO2HAuxcEXqKRVz GHTdOY4gjsLxqNzqlCPg coW3nWYnPKT7FZsffUFe FJSspFRoOe8qmMVosA7f Cbw8LESfw75sWAchYYHs izK1LTUsk0NbusXcowCx a3mfQDF9xfMoenGpd4Sa h1NhAJIfREhnJRHgPTWb lPVqdE6hkvWxVMWyGaFw wjJdzWcbFHMcq7XroP2d B9KvQSHtAV7vRyIllU86 cnMsIGEgbmVnYXRpdmUg ZQSzKJKgoY7xdO0tjVnn rN2dvBXovYIvmNUxGRqR KZFoTKQ5uMAjjPJ7YNQt GC1bAJBfR4RwqSklhoXp ciQaSS80KOCfNkVum8Ds bmVnYXRpdmUsIGFsdGhv aEvhUYE9tGDcPHYtfNK3 LEMjzE90dfY8aPJ0PZsd wbChe2EmR2uxSX1gGBWe taHzNNLdaTwvQNRqe1If HGGqoJ4pSeTsosUdAWyi ZWtzIHdpdGhvdXQgYWZm SFN6wH9tIKhUZgHuzUIg naaaLzIqLIF3rELuGbCN aGVyZWZvcmUsIGEgbmVn OJXvlsOxmlYojQb4FVWu o9CkPSVmBPT9INZjNviv ZCBieSBhZGRpdGlvbmFs DROph5JoCN3lOUEpnOVz slP1dHMjDEJwvJJaULBv hZDlIBSufq1bgazxfZKc EZEbOiUrPF5mDMYEbxPp ppIkzMBgmW5nIRTmfD3w EV1jfV6huGfqaD5tcXLx BhWQx6dnNP7npITaVXX9 ZsZbOawiEntpOJV5So2p hZjgARDMFvG9fUMcl8Tk P4gxPO8qh5LaTS3pcSIq xtz2vRUcvOhcmPIbD3Xw y8UbOVA7JM7WSKCsEFYl j59lBGMqxmJmVI0wqKr1 aWNhbCBmaXhhdGlvbiB0 zC7upvUnCWdwFnOsBh80 ldWbhP5gaEqhVVDcI77g qJMnuKkfZfHaNAAtk5il X6uotuCgq2Z3OmTVuHFe GPTts2MeyXCwpIL9QFFc k3PeTvMimvD6SSdhFVS0 YURdj14oHMAgLSxmjUVx NGAibBgkg4Ybrr0zDtXw xRh4eaXwpN28tIGnPyCx zW47BLQzubE7DTPst1p5 tYCqHQX5cA0yTEvmziSo JQLoFJFuxAtaaAssp52w MB4zTRNxwCAxSE8gS2L7 aLJyoMpca29tJGCwMVaq oLIcBATcz5SaU2xgOV4t LlxwYXJ9 Diagnosis (test code = q4mwjVTjKDEyeVE6ZsLk 34) BLRfi4brt5HbbQZssIDm CXdidEWpwiHurw74xJO6 yM76LQ3kAVXfEnR3CQFs uhL2Cyi6ZPFgZURhkNRh U905f2eds2jjfrXcfVL2 fVxwYXJkXHBsYWluXGZz WeAvL3H2h4llHIDwQvI0 PRNtUWy7TFY8MUCAMMXe GEVDB8DKHresBXMMZ7Td UMGkoHcfZ0DoHZVqgsD4 YfjwRgGqHXp7ALYfyrdv IZOkyYo2WrYlwEmlNnPh UFVphH7bbwfcLtcvUTXq knQ0sN4ihkcqSY85VZPu d3Zeg4RukPstqWMdqbT4 nyP9xESehSQjCLAdO3Xx p52pUXSaEZCqIVzmCOjh fVViTSEjiqrvxDJ1FPOc sNlzFAJ1HPGCUx3KRTQK OHVLUYZXCxIATy1QVMpq XFvINMQREbBAQTqvQ9fE UTUHR0CZPOWCWjJATtOM FLRYSz9EYKvuPTKPTTYB SdhqWW4XGMXFMhGbHT9Q BkYFVH9PZcKeMIMOSGUA MJ6hZSGluaf+XHBhciBN vQRryDenhdztAMAnf4An lBBzqNGtuf97TSWtSZWe bnQuXHBhclx+XHBhciBO vhNuBMWoxhu0wBAdUWb8 sUPgj4Bmh8F0gQSyVWzk zkMnhG6yCTyyISwqTM23 aWZpZWQuXHBhclxsaTIx NjBcZmktNzIwXGxpbjIx NjBccGFyXGxpNzIwXGZp EYrguF68AsRgGDPkydAz cIAvrFWlWYFmZRQ4gE0n BVCwk6HxXTVlf5KznPCd QiBMMSwgTDIpOlxwYXJc mLJjFYxtNVJ9SCuhfC0n SGKvKFFCR1KFRPySKYzr A2IPP6wHZ00XKMDOOPlD NNhWMAEOIMHZZiXSJ2cO RSBJTlRPIExBTUlOQSBQ Ng4OJqhWGuimNYXteido ZXEnFPLiA7QlHWQigzXf px1xzegeWBnzNT1ntLCo xxKsQL72NbsxOYIrcypg MPXmHy5yDSVgrD1cfYy0 KMBsdC5slE34BBYdnXnx vcNitxEjp1whmyMhkeZy ZGVudGlmaWVkLlxwYXJc sTfsPNpsvoItxGSzPS20 dHNpZGUgKDIwOklTMTUz ZlcbKTCuF7BaAACyLthS S4rMVABaHNVHGirvE62i jOQkqSEbFR3wMOXxLjkg GcWlIVw9XIJqyshcZVUz wWs7CaMhzGhmVaQqIVVc uR4egozgXsqyLINoxizq ZU2gBWyuZgtodYD9WVaM IEwxLCBMMilccGFyXGxp XhW1IFdjqV37DaPhdMwm LlG9VXnbKPFkgRjjBYAa AMNjYTncfX1gZSSaVQFW M5MHOKmOVArfQ7KHD4yA M55RTSVWFZnIAHdDALXE VUVXRnZKW5mRGPHCJeUE KHnPZYcRRNYSTh4OLouF LlxwYXJcflxwYXIgTXVz J2QsQITfmiRpnu4ykzpa CMwtUI2bbCJmkuFbQI16 HqibEFQuncuqEOFjPj6p EMAtjB5ynUi5OOGhaA3n dB50HBFfnRbnovZcejOo b1lbhlKekdMnBMVkwSgv aWVkLlxwYXJcbGkwXGxp bjBccGFyXGxpNzIwXGxp kwhlQPTHworsIFG0QITp YWRkZXIsIGRvbWUsIHRy LH2exRJcyKipEUsswaVr HAO1gS2uXQoPZHXHOFio IWTyxV8zMhQvGBWuDLkm KVxwYXJcbGkyMTYwXGZp HOjdSLtndL0sHCAtLWZo beljnSW7RWPkDvgoJThn vkO3YPOjIPFXMKcHZWpW GEJJRBHXVC4NOEKlWBIN SUdIIEdSQURFLCBXSVRI UDIZZ2QPPMnPLO6IFWjV UiBESUZGRVJFTlRJQVRJ V80eDFhOFpKCXNDPFOhP BB9kIPRYH4JKNIKPVnYD Ig9YSvqCKdjvUBJzhfxr IEYpRu0xFQWzqI6xzKk4 ILUryI1rcZ04LZYglTdw lbLokiOlj3stwcZixoLw ZGVudGlmaWVkLlxwYXJc dFHbPOmkBFymlW0iSG09 dHNpZGUgKDIxOklTMjgs RLowO6PnGBRzWayNO8dD QBDnJDUUCutuB47bgXZs oYRiVZ5mMTCcYKGdXcJw JQi3CNYdcvxoQABfpKc5 LiBqbWyoZlXhCZJiz4Bs cmlvciBibGFkZGVyIHdh aObxHKWgu5EcvIKyJIGO MSwgTDIpOlxwYXJccGFy GVckDkI0ZMhxaQ75QaFq tTybEhP1YXGPIYP1iQFk rCkjDIIejABlGZD5mj17 dSOpmRUuBV04T11vPGnz lq2bhMQld6ZypPLjs3Oa nQ2acRQxOJVizagriLXg ZmkwXGxpbjBcdGFiXHRh YiBNdXNjdWxhcmlzIHBy l9CqdTLesINvlPQev0Qc jQ0gPAVikvcyTHExeMl7 MjBcbGluNzIwIFRyaWdv rvVvQezkMWRzvaZ0MYtb DUAreR5re7bzCYZtRRTq IEwyKTpccGFyXHBhclxs aTIxNjBcZmktNzIwXGxp bjIxNjAgVXJvdGhlbGlh pWQafINrx6HpBX7dDBM8 aC7rKSTsCKCbexSiIOAf clxsaTBcZmkwXGxpbjBc cGFyXGxpNzIwXGxpbjcy BMWEFJR8TRVfFBYnXIFe j1ZlzLKkaAM9VCCfsIio UHSqk3PfeDNjFwDCQBfx TDIpOlxwYXJccGFyXGxp APP5ZFuhzQ0tILXbBLP1 vLYjk2r5ZQx1UBXebfNx ZWQgdXJvdGhlbGlhbCBt uWYor8LvUZ2eMPG2oK8j IHByZXNlbnQuXHBhclxs wOO0EWPmVqjlSbKiALvh axB0LYFbqHDtQQtrPPK8 ZUzlhRVwaUwwWGP9FSGH sQBotRbltjxdTOAwi3Uo mCImiLXfkGWwc2JqnO3r nRHuJCxmAFxyeP6oMQIg pcredYanMTzvcG28ZzWa UmlnaHQgYmxhZGRlciB3 YWxsIChsYXRlcmFsKSwg SxhiaSJ6PLjYOSudRQII Fwa0LBBhwaynDQUedGdo IRVdVJMxWUifIWeiuE5b WCNmPSRek6XwVAthIFpt kUTpj9GuFOSaitI0iN2d vvXpfsKdXL40AavuHPEq kQIyTMswBWX5YVbyhQKz aSaqLMJ2OAZGrLVmiUxe lvyvUMWix7MrxDOknUPv tSEks7YytR3bbAYtECSb nwKvhAPmNLUPB7VHODUf cn0= Disclaimer (test code = v5zwsXPkZRZnzKWiAqIx 9844) APQmDHTua2utKZEosKJg ZzEwMzNcZnRuYmpcdWMx VHRaXqGgz1uoa979iLIl q4zuUXOiOtK5xBAqQCCv qVLkC283TWSnTNxen7tw a3LsKAHozWJwq7B8PIWE jnutyJu6oDkpA38pk9P8 WzaxI2wpVUBvQNLuX0Ch CP6wXLAqHff5EWH6LPZ2 EKRnGDTpG2VnHV1hXKSg fIKxTRm9c0xjbUmnHJTt YSK4g6pvPKkeguEyFI5w at7wyPa6j0vfajJrMVZr OHDzyTWTKEIoC7SrtVpc Bz5mcHb9hCarAgbvBTR8 Zmg4UV5txx07jzl7tJjv DMTukrwzFcJ9YWosDLKi gzuvTEx5SSiaFWPqpZQ5 PXCovLTkX0YfTAXrJF7r oiv5CTM1PXtzVGZjIuG6 NDBcaGVhZGVyeTcyMFxm d765CIK6IfNzRL7zB6Mn r4L9qD7hyVSvNANprLXx LzLqMJAqvk2zxPTuVGjq g7SoFWO3zsX7jAQnnOXx OTXdCU37Mzjit3MhCbjm HKX9XPBywwZcu7Wje8cf OoDhtbFkQ2ppP4UbJTTc EBLbZWAwNfAdetPqg3Dd e4OxkPQdcWo3z2wcRVTj JIVkxWuwc3sfLSA0IGMm E3Z4lWAqg2gqHKlfVGGz xAX9pfF4AWUszDXyT4Xl iN1vTOWwRD3uatk3h0ve NHO2URkeJBFoQvS4bkR8 NDBcaGVhZGVyeTcyMFxm v539YRH1NlZkBKSyv9Ul O8NwtMdbA59kxVixB20e PMPjaGyyeV9djDihgZ9i ZjBcZnMyNFxxbFxwbGFp ebojSUudkjX2SNtlljue NHHkPEgsU2bvQyGfRCGr rNlyMAykv6SkCYHjLDAp KoboksN3YRFXa33wPZWw d1KbUHXxkV6esRNqDYwo wsPebJT3KAvygcPqWsKz doJaDMPoeD2hNMYcRN3u UEQnkjWgwk9cjxBxTHPw DPPmW1IlloebcQqntbEe ERIyit2pgzGjXJB2PVQR JM6VIOKbYMLhm77yNGWs jVmunY6yqRQigpClSJWm c7MdwK0lzMTTHRVgQ4gy SL3xFLcmd8CmjVWsvTTa kBL1JAPup0SoVvGcaeWx fZGouXInW1AmgQbcX5et XSVaHCOktrFbuUNau8Ef HVHfvSK9hMIsRY2GTqTL b15xAKMgHIOTqnLmFQLi mIbrrQC1wwX1dC1hDyAW ZiBhcHBsaWNhYmxlLCBj c461gr3uckY2DEMbSDCf wjjvy2RuBACpPRMwnC84 UQPzPMMybi1urnbgwWRv roDlX7Olsfz8hX5zKRMt YWluXGYxXGZzMjJcbGFu ZzEwMzNcaGljaFxmMVxk WwKpQYEjVRntX0rnGkGu ZnMyMlxwYXJ9 MD KellyHemoglobin [id number] 13:20:50 Test Item Value Reference Range Interpretation Comments A1C (test code = 4632) 6.0 % 4.3-5.6 H HbA1c values >=6.5% are diagnostic of diabetes mellitus.Diagno sis should be confi rmed by repeat testing.Therape utic Action suggeste d: >8.0% HbA1c; Go al oftherapy: <7.0 % HbA1c Lab Interpretation (test Abnormal code = 55322-9) MD KellyCalcium [id number] 13:17:11 Test Item Value Reference Range Interpretation Comments Calcium Lvl (test 9.7 mg/dL 8.4-10.2 Testing Pe rformed at code = 5258) [facility] [address], [address], [place], [place] [address] MD KellyConfirm [id number] 20:13:04 Test Item Value Reference Range Interpretation Comments ABORh Confirm. (test code = 882-1) A POS MD KellyCT Abdomen Pelvis with and without Contrast [id number] 14:57:30 1. Focal wall thickening, dome of the urinary bladder. 2. No filling defects, bilateral urinary collecting systems. 3. No evidence for metastatic disease in the abdomen or pelvis. Interface, Radiology Results In - 03/29/2020 8:59 AM CSTFULL RESULT:Examination: CT ABDOMEN PELVIS W WO CONTRAST UROGRAM, 03/28/2020 6:35 PMClinical History: Malignant neoplasm of overlapping sites of bladderIndication: H/O Bladder Cancer - rule out metastatic disease Ita Kelly Baseline imagingComparison: Outside CT study of the abdomen and pelvis September 15, 2019Technique: CT of the abdomen and pelvis was performed with intravenous contrast, preceded by CT of the abdomen and pelvis without intravenous contrast. A CT urogram was performed.Findings: LUNG BASES:No soft tissue lung nodules or pleural effusions are present.Small volume bibasilar subsegmental atelectasis is seen.PRECONTRAST IMAGING:No hyperdense renal nodules are present.On image 86 of series 3, there a couple of 2 mm calculi in the mid left kidney.On image 160, there is a 3 mm calcification projecting in the anterior wall of the urinary bladder.POSTCONTRAST IMAGING:Uneven thickening is present in the dome of the urinary bladder, approximately 4 cm inlength, is present as seen on axial image 151 of series 10 and sagittal image 90 of series 12.No other filling defects are seen in the urinary bladder.No filling defects are seen in the bilateral urinary collecting systems.No adenopathy or ascites are seen in the abdomen or pelvis.The prostate gland has heterogenous enhancement and dystrophic calcifications and without a measurable mass.The kidneys demonstrate function without hydronephrosis with bilateral low dense cortical foci present that appearstable and favor cysts.The liver remains borderline enlarged and diffusely fatty infiltrated withouta measurable mass or biliary ductal dilation. The gallbladder appears normal.The spleen, pancreas and right adrenal gland appear normal. The left adrenal gland remains slightly enlarged and likely hyperplastic.On image 91 of series 10, there is a borderline infrarenal abdominal aortic aneurysm measuring 31 mm in AP dimension and does not involve the common iliac arteries.Stable multilevel degenerative-like bone changes are present.IMPRESSION:1. Focal wall thickening, dome of the urinary bladder.2. No filling defects, bilateral urinary collecting systems.3. No evidence for metastatic disease in the abdomen or pelvis.MD AndersonX-ray Chest 2 [id number] 14:21:32No sign of metastatic disease in the chest. A linear opacity in the right lower lung may be due to atelectasis or scarring. Interface, Radiology Results In - 03/28/2020 8:23 AM CSTFULL RESULT:Examina tion: Chest, 2 views, 03/28/2020 7:34 AMClinical History: Malignant neoplasm of overlapping sites of bladder: Assess for active or metastatic intrathoracic disease. Clarify subsequent treatment strategy.Indication: Bladder cancer: Assess for active or metastatic intrathoracic disease. Clarify subsequent treatment strategy.Comparison: NoneTechnique: Posterior, lateral and dual-energy radiograph of thechestFindings:Lung parenchyma:There are there are no noncalcified pulmonary nodules. There is no sign of consolidation to suggest pneumonia. Linear opacity in the right lower lung may be due to atelectasis or scarring.Nodes:There is no enlargement of the mediastinal or hilar regions to suggest underlying enlarged nodes.Cardiac: The cardiopericardial silhouette is not enlarged.Pleura:There is no sign of a pleural effusion.Degenerative changes of the spine. The aorta is mildly tortuous. IMPRESSION:Nosign of metastatic disease in the chest. A linear opacity in the right lower lung may be due to atelectasis or scarring.MD Rose CT Abdomen and [id number] 14:02:28 Study acquired at another institution. For comparison only. No MD Kelly originated interpretationrequested or available.MD Rose MRI Pelvis 2020-03-28 14:02:01Study acquired at another institution. For comparison only. No MD Kelly originated interpretationrequested or available.MD Kelly
[2020-06-14 19:38] LABS: Absolute Lymphocytes (CBC) 0.8 K/uL (0.7-4.9); Basophils % 0.5 % (0-1.3); Hematocrit 22.1 % (39.6-49.0); MPV 8.2 fL (7.6-11.3); RBC Red Blood Cell Count 2.45 M/uL (4.33-5.43)
[2020-06-14 19:46] LABS: Protime INR 1.37
--- NOTE | 2020-06-14 19:47 | RAD REPORT ---
EXAM DESCRIPTION: RAD - Chest Single View - 06/14/2020 7:38 pm CLINICAL HISTORY: DYSPNEA Chest pain. COMPARISON: Chest Pa And Lat (2 Views) dated 01/19/2020; CHEST SINGLE VIEW dated 07/03/2014 FINDINGS: Portable technique limits examination quality. The lungs are grossly clear. The heart is normal in size. No displaced fractures. IMPRESSION: No acute intrathoracic process suspected.
[2020-06-14 20:15] LABS: Blood Morphology Comment NOT SEEN (NOT SEEN); Platelet Estimate ADEQ; White Blood Cell Scan OK (OK)
[2020-06-14 20:30] LABS: ALT/SGPT 36 U/L (12-78); AST/SGOT 14 U/L (15-37); Albumin 2.7 g/dL (3.4-5.0); Alkaline Phosphatase 93 U/L (45-117); BUN Blood Urea Nitrogen 16 mg/dL (7-18); Bicarbonate 26 mmol/L (21-32); Bilirubin Direct 0.1 mg/dL (0-0.2); Bilirubin Total 0.5 mg/dL (0.2-1.0); Glucose Level 116 mg/dL (74-106); Magnesium 2.3 mg/dL (1.8-2.4); NT PRO-BNP 357 pg/mL (<450); Potassium 4.3 mmol/L (3.5-5.1); Protein, Total 7.2 g/dL (6.4-8.2); Sodium Level 137 mmol/L (136-145); Troponin (Emerg Dept Use Only) < 0.02 ng/mL (0.0-0.045)
[2020-06-14] MEDS ORDERED: NA CHLORIDE 0.9% 250 ML ONE (21:30)
[2020-06-14] MEDS ORDERED: ACETAMINOPHEN 325 MG TABLET ONE (21:37)
[2020-06-14] MEDS ORDERED: DIPHENHYDRAMINE 50 MG/ML VIAL ONE (21:38)
--- NOTE | 2020-06-15 00:08 | ER ---
Nurse's Notes [facility] Name: Ulices Garcia Age: 74 yrs Sex: Male : 1945 Arrival Date: 06/14/2020 Time: 17:25 Bed 24 Private MD: Diagnosis: Acute Anemia Presentation: 06/14 17:48 Chief complaint: Patient states: had bladder removed at [facility] due to bladder em cancer, 4 days ago noticed he had generalized weakness, had lab work done 4 days ago and had a HGB 6.2, reports fatigue, shortness of breath, denies any bleeding. Coronavirus screen: Client denies travel out of the [place] in the last 14 days. Ebola Screen: Patient negative for fever greater than or equal to 101.5 degrees Fahrenheit, and additional compatible Ebola Virus Disease symptoms Patient denies exposure to infectious person. Patient denies travel to an Ebola-affected area in the 21 days before illness onset. No symptoms or risks identified at this time. Initial Sepsis Screen: Does the patient meet any 2 criteria? HR > 90 bpm. No. Patient's initial sepsis screen is negative. Does the patient have a suspected source of infection? No. Patient's initial sepsis screen is negative. Risk Assessment: Do you want to hurt yourself or someone else? Patient reports no desire to harm self or others. Onset of symptoms was June 14, 2020. 17:48 Method Of Arrival: Ambulatory em 17:48 Acuity: YAMILA 3 em Historical: - Allergies: 17:54 No Known Allergies; em - PMHx: 17:54 dyslipidemia; Hypertension; em - PSHx: 17:54 BLADDER SX; em - Immunization history:: Adult Immunizations up to date. - Social history:: Smoking status: Patient denies any tobacco usage or history of. Screenin:30 Abuse screen: Denies threats or abuse. Denies injuries from another. Nutritional hb screening: No deficits noted. Tuberculosis screening: No symptoms or risk factors identified. Fall Risk None identified. Assessment: 18:30 General: Appears in no apparent distress. Behavior is calm, cooperative. Pain: Pain hb currently is 1 out of 10 on a pain scale. Neuro: Level of Consciousness is awake, alert, obeys commands, Oriented to person, place, time, situation. Cardiovascular: Patient's skin is warm and dry. Respiratory: Respiratory effort is even, unlabored, Respiratory pattern is regular, symmetrical. GI: Reports lower abdominal pain. : No signs and/or symptoms were reported regarding the genitourinary system. EENT: No signs and/or symptoms were reported regarding the EENT system. Derm: Skin is pink, warm \T\ dry. Musculoskeletal: No signs and/or symptoms reported regarding the musculoskeletal system. 20:45 Reassessment: patient informed about the plan for blood transfusion. mg2 22:58 Reassessment: Patient appears in no apparent distress at this time. Patient and/or mg2 family updated on plan of care and expected duration. Pain level reassessed. Patient is alert, oriented x 3, equal unlabored respirations, skin warm/dry/pink. Vital Signs: 17:48 BP 149 / 63; Pulse 113; Resp 16; Temp 98.0; Pulse Ox 100% on R/A; Weight 79.83 kg; em Height 5 ft. 10 in. (177.80 cm); Pain 1/10; 18:30 BP 134 / 68; Pulse 108; Resp 17; Pulse Ox 99% on R/A; Pain 1/10; hb 20:45 Pulse 110; Resp 18; Pulse Ox 97% on R/A; mg2 22:58 BP 129 / 51; Pulse 95; Resp 18; Temp 99.8; Pulse Ox 94% on R/A; mg2 06/15 00:25 BP 117 / 61; Pulse 94; Resp 18; Temp 98.5; Pulse Ox 95% on R/A; mg2 06/14 17:48 Body Mass Index 25.25 (79.83 kg, 177.80 cm) em ED Course: 06/14 17:25 Patient arrived in ED. rg4 17:54 Triage completed. em 17:54 Arm band placed on. em 18:10 Tala Shabazz, RN is Primary Nurse. hb 18:30 Patient has correct armband on for positive identification. Bed in low position. Call hb light in reach. 18:53 Rambo Donis PA is PHCP. jr8 18:53 Jatin Bates MD is Attending Physician. jr8 19:28 No provider procedures requiring assistance completed. Inserted saline lock: 20 gauge mg2 in right wrist, using aseptic technique. Blood collected. 19:38 XRAY Chest (1 view) In Process Unspecified. EDMS 04/29 00:25 IV discontinued, intact, bleeding controlled, No redness/swelling at site. Pressure mg2 dressing applied. Administered Medications: 06/14 21:40 Drug: Tylenol 650 mg Route: PO; mg2 06/15 00:25 Follow up: Response: No adverse reaction mg2 06/14 21:40 Drug: Benadryl (diphenhydrAMINE) 12.5 mg Route: IVP; Site: right wrist; mg2 06/15 00:25 Follow up: Response: No adverse reaction mg2 Medication: 00:25 Blood products: PRBCs X 1 unit given. See transfusion record. mg2 Outcome: 00:08 Discharge ordered by . jr8 00:25 Discharged to home ambulatory, with family. mg2 00:25 Condition: stable 00:25 Discharge instructions given to patient, family, Instructed on discharge instructions, follow up and referral plans. medication usage, Demonstrated understanding of instructions, follow-up care, medications, Prescriptions given X 1. 00:26 Patient left the ED. mg2 Signatures: Dispatcher [employer] EDPR Shine Salazar, RN RN Rambo Leblanc PA PA jr8 Tala Shabazz RN RN hb Garcia, Rubi rg4 Karthik Willoughby RN RN mg2
--- NOTE | 2020-06-15 00:09 | EDPHYS ---
Physician Documentation [facility] Name: Ulices Garcia Age: 74 yrs Sex: Male : 1945 Arrival Date: 06/14/2020 Time: 17:25 Bed 24 Private MD: ED Physician Jatin Bates HPI: 06/14 19:56 This 74 yrs old Male presents to ER via Ambulatory with complaints of jr8 Weakness. 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 Had lost blood from jr8 surgery and was transfused. Had been doing well since then recovering. Stated that a few days ago started to have fatigue and weakness. Now worse. Called MD Kelly and had blood work completed. Showed low hemoglobin and was sent to ED at that time . Historical: - Allergies: 17:54 No Known Allergies; em - PMHx: 17:54 dyslipidemia; Hypertension; em - PSHx: 17:54 BLADDER SX; em - Immunization history:: Adult Immunizations up to date. - Social history:: Smoking status: Patient denies any tobacco usage or history of. ROS: 19:56 Eyes: Negative for injury, pain, redness, and discharge, ENT: Negative for injury, jr8 pain, and discharge, Neck: Negative for injury, pain, and swelling, Cardiovascular: Negative for chest pain, palpitations, and edema, Abdomen/GI: Negative for abdominal pain, nausea, vomiting, diarrhea, and constipation, Back: Negative for injury and pain, MS/Extremity: Negative for injury and deformity, Skin: Negative for injury, rash, and discoloration. 19:56 Constitutional: Positive for fatigue. 19:56 Respiratory: Positive for dyspnea on exertion. 19:56 Neuro: Positive for weakness. Exam: 19:56 Eyes: Pupils equal round and reactive to light, extra-ocular motions intact. Lids and jr8 lashes normal. Conjunctiva and sclera are non-icteric and not injected. Cornea within normal limits. Periorbital areas with no swelling, redness, or edema. ENT: Nares patent. No nasal discharge, no septal abnormalities noted. Tympanic membranes are normal and external auditory canals are clear. Oropharynx with no redness, swelling, or masses, exudates, or evidence of obstruction, uvula midline. Mucous membranes moist. Neck: Trachea midline, no thyromegaly or masses palpated, and no cervical lymphadenopathy. Supple, full range of motion without nuchal rigidity, or vertebral point tenderness. No Meningismus. Respiratory: Lungs have equal breath sounds bilaterally, clear to auscultation and percussion. No rales, rhonchi or wheezes noted. No increased work of breathing, no retractions or nasal flaring. Abdomen/GI: Soft, non-tender, with normal bowel sounds. No distension or tympany. No guarding or rebound. No evidence of tenderness throughout. Back: No spinal tenderness. No costovertebral tenderness. Full range of motion. Skin: Warm, dry with normal turgor. Normal color with no rashes, no lesions, and no evidence of cellulitis. MS/ Extremity: Pulses equal, no cyanosis. Neurovascular intact. Full, normal range of motion. Neuro: Awake and alert, GCS 15, oriented to person, place, time, and situation. Cranial nerves II-XII grossly intact. Motor strength 5/5 in all extremities. Sensory grossly intact. 19:56 Cardiovascular: Rate: tachycardic, Rhythm: regular, Pulses: Pulses are 2+ in right radial artery and left radial artery. Heart sounds: normal, normal S1and S2, murmur, systolic, grade 2 over 6, heard in the aortic area, Edema: is not appreciated. Vital Signs: 17:48 BP 149 / 63; Pulse 113; Resp 16; Temp 98.0; Pulse Ox 100% on R/A; Weight 79.83 kg; em Height 5 ft. 10 in. (177.80 cm); Pain 1/10; 18:30 BP 134 / 68; Pulse 108; Resp 17; Pulse Ox 99% on R/A; Pain 1/10; hb 20:45 Pulse 110; Resp 18; Pulse Ox 97% on R/A; mg2 22:58 BP 129 / 51; Pulse 95; Resp 18; Temp 99.8; Pulse Ox 94% on R/A; mg2 06/15 00:25 BP 117 / 61; Pulse 94; Resp 18; Temp 98.5; Pulse Ox 95% on R/A; mg2 06/14 17:48 Body Mass Index 25.25 (79.83 kg, 177.80 cm) em MDM: 06/14 18:53 Patient medically screened. [email or web address] [[email or web address]] 23:46 Data reviewed: vital signs, nurses notes, lab test result(s), and as a result, I will jr8 discharge patient. Data interpreted: Pulse oximetry: on room air is 95 %. Interpretation: normal. Counseling: I had a detailed discussion with the patient and/or guardian regarding: the historical points, exam findings, and any diagnostic results supporting the discharge/admit diagnosis, lab results, the need for outpatient follow up, a family practitioner, to return to the emergency department if symptoms worsen or persist or if there are any questions or concerns that arise at home. 06/15 00:08 ED course: Patient overall feeling better. Will d/c home to f/u with MD Kelly for jr8 H/H recheck. Knows to come back if worse . 06/14 18:54 Order name: Basic Metabolic Panel; Complete Time: 20:31 06/14 18:54 Order name: CBC with Diff; Complete Time: 20:31 06/14 18:54 Order name: LFT's; Complete Time: 20:31 06/14 18:54 Order name: Magnesium; Complete Time: 20:06/14 18:54 Order name: NT PRO-BNP; Complete Time: 20:31 06/14 18:54 Order name: PT-INR; Complete Time: 20:00 06/14 18:54 Order name: Troponin (emerg Dept Use Only); Complete Time: 20:31 06/14 19:04 Order name: TS hb 06/14 19:04 Order name: Type and Screen EDMS 06/14 18:54 Order name: XRAY Chest (1 view); Complete Time: 20:00 06/14 18:54 Order name: EKG; Complete Time: 18:55 06/14 18:54 Order name: Cardiac monitoring; Complete Time: 19:28 06/14 18:54 Order name: EKG - Nurse/Tech; Complete Time: 19:28 06/14 18:54 Order name: IV Saline Lock; Complete Time: 19:28 06/14 18:54 Order name: Labs collected and sent; Complete Time: 19:28 06/14 18:54 Order name: O2 Per Protocol; Complete Time: 19:28 06/14 18:54 Order name: O2 Sat Monitoring; Complete Time: 19:28 28 20:15 Order name: CBC Smear Scan; Complete Time: 20:31 [facility] 06/14 20:34 Order name: ABO/RH no charge; Complete Time: 20:37 [facility] 06/14 20:59 Order name: Packed RBCs (Additional Unit) EDPA Administered Medications: 06/14 21:40 Drug: Tylenol 650 mg Route: PO; mg2 06/15 00:25 Follow up: Response: No adverse reaction mg2 06/14 21:40 Drug: Benadryl (diphenhydrAMINE) 12.5 mg Route: IVP; Site: right wrist; mg2 06/15 00:25 Follow up: Response: No adverse reaction mg2 Disposition: 03:04 Co-signature as Attending Physician, Jatin Bates MD. selena Disposition: 06/15/20 00:08 Discharged to Home. Impression: Acute Anemia. - Condition is Stable. - Discharge Instructions: Iron Deficiency Anemia, Adult. - Prescriptions for Ferrous Sulfate 325 mg (65 mg Iron) Oral Tablet - take 1 tablet by ORAL route every 8 hours; 90 tablet. - Medication Reconciliation Form, Thank You Letter, Antibiotic Education, Prescription Opioid Use form. - Follow up: Private Physician; When: 2 - 3 days; Reason: Recheck today's complaints, Continuance of care, Re-evaluation by your physician. - Problem is new. - Symptoms have improved. Signatures: Dispatcher [employer] Jatin Priest MD MD pkl Shine Salazar RN RN em Roszak, Josh, PA PA jr8 Karthik Willoughby RN RN mg2 Corrections: (The following items were deleted from the chart) 06/14 20:59 20:02 PACKED RBC LEUKORED -1+BB.LAB.BRZ ordered. [facility] 20:59 20:02 ABO/RH typing ordered. [facility] 20:59 20:02 Antibody Screen ordered. [facility] 21:56 18:55 Procalcitonin+C.LAB.BRZ ordered. [facility] 21:57 18:55 BLOOD CULTURE*+BA.LAB.BRZ ordered. [facility] 06/15 00:26 00:08 06/15/2020 00:08 Discharged to Home. Impression: Acute Anemia. Condition is mg2 Stable. Forms are Medication Reconciliation Form, Thank You Letter, Antibiotic Education, Prescription Opioid Use. Follow up: Private Physician; When: 2 - 3 days; Reason: Recheck today's complaints, Continuance of care, Re-evaluation by your physician. Problem is new. Symptoms have improved. jr8
[2020-06-15 00:47] VITALS: BP 117/61; TEMP 98.5; O2SAT 95
== END 2020-06-15 00:26 | disposition home or self-care (01) ==
LOC: ER 17:19
PROC: 30233N1 Transfusion of Nonautologous Red Blood Cells into Peripheral Vein, Percutaneous Approach (ICD-10-PCS; principal; 2020-06-15)
PROC: 30233N1 Transfusion of Nonautologous Red Blood Cells into Peripheral Vein, Percutaneous Approach (ICD-10-PCS; 2020-06-15)
DX: D64.9 Anemia, unspecified (principal); C67.9 Malignant neoplasm of bladder, unspecified; I10 Essential (primary) hypertension
CPT/HCPCS: 93005; 85025; 80048; 36415; 86900; 83735; 86850; 85610; 86901; 80076; 84484; 83880; 71045; 36430 ×2; 96374; 99284; J1200; P9016; J7050

== ENCOUNTER 2022-04-30 17:04 | Emergency (ER) | payer OTHER ==
--- OUTSIDE RECORDS SUMMARY | 2022-04-30 17:07 | XMS REPORT | Clinical Summary ---
:1945 Author Organization [facility] MD [facility] Address [address] [place] [address] Care Team Providers Name Role Phone Josesito Pa MD Unavailable Iliana Marin [facility] Primary Care Provider [phone] Josesito Pa MD Primary Care Provider Allergies No known active allergies Medications Medication Sig Dispensed Refills Start Date End Date Status amLODIPine (NORVASC) 5 mg Take 5 mg 0 10/18/2019 Active tablet by mouth daily. evolocumab (Repatha Every other 0 Active SureClick) 140 mg/mL week pnijIndications: hypercholesterolemia acetaminophen (TYLENOL) Take 500 mg 0 04/18 11/06 Discontinued 500 mg tablet by mouth as 22 needed for mild pain. senna (SENOKOT) 8.6 mg Take 1 30 tablet 0 05/23/2020 Discontinued tabletIndications: tablet by 22 Malignant neoplasm of mouth 2 overlapping sites of (two) times bladder, Recovery a day as following surgery needed for constipatio n. Active Problems Problem Noted Date Severe protein-calorie malnutrition 06/06/2020 Cellulitis 05/30/2020 Overview: Surrounding BINU drain insertion site. Kef freddy 500 mg TID x 5 days initiated Recovery following surgery 05/23/2020 Overview: S/p cystectomy with ileal conduit 021 Urostomy present 05/19/2020 Overview: S/p cystectomy with ileal conduit 021 Pure hypercholesterolemia 04/26/2020 Last Assessment & Plan: Formatting of th is note might be different from the original. Patient is on repatha. Lipids followed b y outside alteration manager. Preoperative cardiovascular examination 04/26/2020 Last Assessment & Plan: Formatting of th is note might be different from the original. Preoperative cardiovascular evaluation p rior to cystectomy. Patient has hypertension and smoking history but no history of myocardial infarction, TIA/CVA. He has good exertional capacity (I personally c limbed 2 flights of stairs with him). He had what sounds like classic musculoskeletal chest pain 3 weeks ago. Will repeat EKG today in clinic and if unchanged, no further cardiac workup is needed. Patient is low risk for major adverse ca rdiovascular events in the perioperative period. Bladder cancer 03/21/2020 Overview: Added automatically from request for artis buck [id number] Malignant neoplasm of overlapping sites of bladder 03/2020 Overview: Added automatically from request for artis buck [id number] Hypertension Last Assessment & Plan: Formatting of th is note might be different from the original. BP is near goal, continue amlodipine. Chronic obstructive pulmonary disease Encounters Date Type Specialty Care Team Description 11/13/2021 Telemedicine Urology Aura Malignant neopl violetta Wiggins MD of overlapping sites of bladde r (Primary Dx) 11/12/2021 Ancillary Procedure Radiology Aura, Malignan t neoplasm MD Feliciano of overlapping sites of bladde r 11/12/2021 Hospital Encounter Lab Aura, Malignant neoplasm MD Feliciano of overlapping sites of bladde r 11/12/2021 Travel 05/24/2021 Office Visit Thoracic Surgery Darline Nguyen, Abdominal aortic aneurysm (Primary Dx); Malignant neopl violetta of overlapping sites of bladder 05/24/2021 Telephone Genitourinary Oncology Nathaly Elena, RN 05/24/2021 Travel 05/15/2021 Office Visit Urology Aura, Malignant neopl violetta Wiggins MD of overlapping sites of bladde r 05/15/2021 Travel 05/14/2021 Ancillary Procedure Radiology Malignan t neoplasm of overlapping sites of cara r 05/14/2021 Clinical Support Wound Ostomy Javier Connelly, RN 05/14/2021 Hospital Encounter Lab Malignant neoplasm of overlapping sites of cara r 05/14/2021 Travel after 04/30/2021 Immunizations Name Administration Dates Next Due Pfizer SARS-CoV-2 Vaccination (Purple Cap) 05/06/2020, 03/21 Surgical History Surgery Date Site/Laterality Comments APPENDECTOMY as a teenager [place] CYSTECTOMY W/BI PELVIC 05/19/2020 Abdomen/N/A Proced ure: CYSTECTOMY, LYMPHADENECTOMY COMPLETE; WITH B ILATERAL PELVIC LYMPHADEN ECTOMY; Surgeon: Feliciano Chavarria MD; Location: MAIN O R; Service: UROLOGY WY PEL LMPHADEC W/XTRNL ILIAC 05/19/2020 Abdomen/Bilateral Procedure: EXCISION OF HYPOGSTR&OBTURATOR PELVIC LYMPH NODES INCLUDING PALEOLOGY PROFESSOR AL ILIAC, HYPOGASTRIC, AND OBTURATOR NODES; Surgeon: Feliciano Chavarria MD; Locat ion: MAIN OR; Service: URO LOGY W[place] URETEROILEAL CONDUIT 05/19/2020 Abdomen/N/A Procedur e: ILEAL CONDUIT; W/INTESTINE ANASTOMOSIS Surgeon: Ulices George III, MD; Locatio n: MAIN OR; Service: URO LOGY WY ENTEROLSS FRING INTSTINAL 05/19/2020 Abdomen/Midline Pro cedure: LYSIS OF ADHESION SPX ADHESIONS; Surge on: Ulices George III, MD; Location: MAIN OR; Service : UROLOGY Medical History Medical History Date Comments Bladder cancer Hypertension Urostomy present 05/19/2020 S/p cystectomy with ileal conduit 05/19/2020 Recovery following surgery 05/23/2020 S/p cystectom y with ileal conduit 05/19/2020 Family History Medical History Relation Name Comments -Other cancer Neg Hx Relation Name Status Comments Father Mother Social History Tobacco Use Types Packs/Day Years Used Date Smoking Tobacco: Former Cigarettes 2 50 Quit : 10/2019 Smokeless Tobacco: Never Alcohol Use Standard Drinks/Week Comments Never 0 (1 standard drink = 0.6 oz pure alcoho l) Alcohol Habits Answer Date Recorded How often do you have a drink containing alcohol? Never 03/28/2020 How many drinks containing alcohol do you have on a typical Not asked 03/28/2020 day when you are drinking? How often do you have six or more drinks on one occasion? Ne pramod 03/28/2020 Education Answer Date Recorded What is the highest level of school Associate degree: academ [employer] program 04/10/2020 you have completed or the highest degree you have received? Sex Assigned at Date Recorded Male 11/08/2019 7:51 PM CDT Job Start Date Occupation Industry Not on file Not on file Not on file Obstetrics History Last Filed Vital Signs Vital Sign Reading Time Taken Comments Blood Pressure 150/68 11/12/2021 3:26 PM CDT Pulse 67 11/12/2021 3:26 PM CDT Temperature 36.6 C (97.9 F) 05/24/2021 9:31 AM CDT Respiratory Rate 19 11/12/2021 3:26 PM CDT Oxygen Saturation 98% 11/12/2021 3:26 PM CDT Inhaled Oxygen Concentration - - Weight 85.1 kg (187 lb 9.8 oz) 05/24/2021 9:30 AM CDT Height - - Body Mass Index 26.92 11/14/2020 9:44 AM CDT Plan of Treatment Date Type Specialty Care Team Description 05/13/2022 Appointment Lab Feliciano Chavarria M D [address] [place], [place] [address] ([place] [facility]) 05/13/2022 Ancillary Procedure Radiology Thiago Chavarria MD [address] [place], [place] [address] ([place]) 05/14/2022 Follow-Up Urology Feliciano Chavarria M D [address] [place], [place] [address] ([place] [facility]) Health Maintenance Due Date Last Done Comments COVID-19 Vaccination (3 - Booster for 07/01/2020 05/06/2020 , 04/14/2020 Pfizer series) Procedures Procedure Name Priority Date/Time Associated Comments Diagnosis CT CHEST ABDOMEN PELVIS Routine 11/12/2021 3:28 Malignant neop lasm Results for this W WO CONTRAST UROGRAM PM CDT of overlapping proc edure are in sites of bladder the results section. MANUAL DIFFERENTIAL Routine 11/12/2021 11:09 Malignant neoplas m Results for this AM CDT of overlapping procedure are in sites of bladder the results section. Results CBC Routine 11/12/2021 11:09 Malignant neoplasm Resul ts for this AM CDT of overlapping procedure are in sites of bladder the results section. FRACTIONATED BILIRUBIN Routine 11/12/2021 11:09 Malignant neop lasm Results for this AM CDT of overlapping procedure are in sites of bladder the results section. TOTAL PROTEIN Routine 11/12/2021 11:09 Malignant neoplasm Resu lts for this AM CDT of overlapping procedure are in sites of bladder the results section. ASPARTATE Routine 11/12/2021 11:09 Malignant neoplasm Resul ts for this AMINOTRANSFERASE AM CDT of overlapping procedure are in sites of bladder the results section. ALANINE AMINOTRANSFERASE Routine 11/12/2021 11:09 Malignant ne oplasm Results for this AM CDT of overlapping procedure are in sites of bladder the results section. ALKALINE PHOSPHATASE Routine 11/12/2021 11:09 Malignant neopla sm Results for this AM CDT of overlapping procedure are in sites of bladder the results section. ALBUMIN LEVEL Routine 11/12/2021 11:09 Malignant neoplasm Resu lts for this AM CDT of overlapping procedure are in sites of bladder the results section. CALCIUM LEVEL TOTAL Routine 11/12/2021 11:09 Malignant neoplas m Results for this AM CDT of overlapping procedure are in sites of bladder the results section. .GLOMERULAR FILTRATION Routine 11/12/2021 11:09 Malignant neop lasm Results for this RATE AM CDT of overlapping procedure are in sites of bladder the results section. SERUM CREATININE Routine 11/12/2021 11:09 Malignant neoplasm R esults for this AM CDT of overlapping procedure are in sites of bladder the results section. ELECTROLYTE PANEL Routine 11/12/2021 11:09 Malignant neoplasm Results for this AM CDT of overlapping procedure are in sites of bladder the results section. BLOOD UREA NITROGEN Routine 11/12/2021 11:09 Malignant neoplas m Results for this AM CDT of overlapping procedure are in sites of bladder the results section. GLUCOSE LEVEL Routine 11/12/2021 11:09 Malignant neoplasm Resu lts for this AM CDT of overlapping procedure are in sites of bladder the results section. PROSTATE SPECIFIC Routine 11/12/2021 11:09 Malignant neoplasm Results for this ANTIGEN AM CDT of overlapping procedure are in sites of bladder the results section. COMPLETE BLOOD COUNT W/ Routine 11/12/2021 11:09 Malignant khushi plasm DIFFERENTIAL AM CDT of overlapping sites of bladder VITAMIN B12 LEVEL Routine 11/12/2021 11:09 Malignant neoplasm Results for this AM CDT of overlapping procedure are in sites of bladder the results section. COMPREHENSIVE METABOLIC Routine 11/12/2021 11:09 Malignant khushi plasm PANEL AM CDT of overlapping sites of bladder CT CHEST ABDOMEN PELVIS Routine 05/14/2021 12:49 Malignant khushi plasm Results for this W WO CONTRAST UROGRAM PM CDT of overlapping proc edure are in sites of bladder the results section. FRACTIONATED BILIRUBIN Routine 05/14/2021 7:39 Malignant neopl asm Results for this AM CDT of overlapping procedure are in sites of bladder the results section. TOTAL PROTEIN Routine 05/14/2021 7:39 Malignant neoplasm Resul ts for this AM CDT of overlapping procedure are in sites of bladder the results section. ASPARTATE Routine 05/14/2021 7:39 Malignant neoplasm Result s for this AMINOTRANSFERASE AM CDT of overlapping procedure are in sites of bladder the results section. ALANINE AMINOTRANSFERASE Routine 05/14/2021 7:39 Malignant khushi plasm Results for this AM CDT of overlapping procedure are in sites of bladder the results section. ALKALINE PHOSPHATASE Routine 05/14/2021 7:39 Malignant neoplas m Results for this AM CDT of overlapping procedure are in sites of bladder the results section. ALBUMIN LEVEL Routine 05/14/2021 7:39 Malignant neoplasm Resul ts for this AM CDT of overlapping procedure are in sites of bladder the results section. CALCIUM LEVEL TOTAL Routine 05/14/2021 7:39 Malignant neoplasm Results for this AM CDT of overlapping procedure are in sites of bladder the results section. .GLOMERULAR FILTRATION Routine 05/14/2021 7:39 Malignant neopl asm Results for this RATE AM CDT of overlapping procedure are in sites of bladder the results section. SERUM CREATININE Routine 05/14/2021 7:39 Malignant neoplasm Re sults for this AM CDT of overlapping procedure are in sites of bladder the results section. ELECTROLYTE PANEL Routine 05/14/2021 7:39 Malignant neoplasm R esults for this AM CDT of overlapping procedure are in sites of bladder the results section. BLOOD UREA NITROGEN Routine 05/14/2021 7:39 Malignant neoplasm Results for this AM CDT of overlapping procedure are in sites of bladder the results section. GLUCOSE LEVEL Routine 05/14/2021 7:39 Malignant neoplasm Resul ts for this AM CDT of overlapping procedure are in sites of bladder the results section. MANUAL DIFFERENTIAL Routine 05/14/2021 7:39 Malignant neoplasm Results for this AM CDT of overlapping procedure are in sites of bladder the results section. Results CBC Routine 05/14/2021 7:39 Malignant neoplasm Result s for this AM CDT of overlapping procedure are in sites of bladder the results section. PROSTATE SPECIFIC Routine 05/14/2021 7:39 Malignant neoplasm R esults for this ANTIGEN AM CDT of overlapping procedure are in sites of bladder the results section. VITAMIN B12 LEVEL Routine 05/14/2021 7:39 Malignant neoplasm R esults for this AM CDT of overlapping procedure are in sites of bladder the results section. LACTATE DEHYDROGENASE Routine 05/14/2021 7:39 Malignant neopla sm Results for this AM CDT of overlapping procedure are in sites of bladder the results section. COMPREHENSIVE METABOLIC Routine 05/14/2021 7:39 Malignant neop lasm PANEL AM CDT of overlapping sites of bladder COMPLETE BLOOD COUNT W/ Routine 05/14/2021 7:39 Malignant neop lasm DIFFERENTIAL AM CDT of overlapping sites of bladder after 04/30/[address] Chest Abdomen Pelvis with and without Contrast Urogram (11/12/2021 3:28 PM CDT)Only the most recent of2 resultswithin the time period is included. Anatomical Region Laterality Modality Chest, Abdomen, Pelvis Computed Tomograp hy Specimen (Source) Anatomical Collection Method Collection Time Re ceived Time Location / / Volume Laterality 11/13/2021 7:12 AM CDT Impressions 11/13/2021 7:39 AM CDT 1. Numerous stable bilateral subcentimet er pulmonary nodules compared to 05/14/2021. Emphysema/COPD. 2. Progressively larger 1.6 x 1.4 cm rig ht renal lesion dating to 04/07/2020, concerning for a renal neoplasm/carcinoma. 3. No definitive CT evidence of new/incr easing metastatic disease in the chest, abdomen or pelvis. Narrative 11/13/2021 7:39 AM CDT EXAMINATION: CT CHEST ABDOMEN PELVIS W WO CONTRAST UROGRAM, 11/12/2021 3:28 PM CLINICAL HISTORY : Malignant neoplasm of overlapping sites of bladder INDICATION: bladder cancer -- check for recurrence. COMPARISON: CT dated 05/14/2021 and CTs d ating as far back as 09/15/2019. TECHNIQUE: Initially, noncontrast CT of the abdomen and pelvis was obtained. CT of the chest, abdomen and pelvis was performed with the administration of intravenous contrast. DISCUSSION : CHEST : Thyroid : Unremarkable Lungs: No pneumothorax/pleural effusio n. Stable 0.4 cm right lower lobe nodule (image 82, series 306). Numerous additional scattered stable subcentimeter pulmonary nodules/nodular densities have been marked on the images. There is a mild de gree of emphysema/COPD. Lymphatics: No axillary lymphadenopathy. Nonspecifically prominent stable 1.2 x 2.3 cm left paratracheal node (image 47, series 4). Additional stable prominent mediastinal nodes are also seen. This incl udes a 1.0 cm in short axis diameter ret rotracheal node (image 19, series 4). Stable prominent left hilar 0.8 cm in short axis diameter node (image 64, series 4). Mediastinum : No mediastinal masses. Bones/Soft tissue : No suspicious osseou s lesions. ABDOMEN/PELVIS : Hepatobiliary: Hepatic steatosis. A st able area of enhancement towards the hepatic dome (image 15, series 302), likely represents an area of some focal fatty sparing. Gallbladder is unremarkable. Spleen : Unremarkable Pancreas : Unremarkable Gastrointestinal: Stomach and small jeff l are unremarkable. Colonic diverticulosis. Appendix not visualized. Genitourinary: Right adrenal gland is unremarkable. Stable nodularity of the left adrenal gland. Left renal cyst measures 1.9 cm, unchanged. Several bilateral renal too small to characterize hypodensi ties. There is a 1.4 x 1.6 cm lesion in the right interpolar kidney, slightly larger compared to 1.4 x 1.[address] of 05/14/2021 but progressively larger compared to more remote CTs dating to 03/28/2020 w here it measured approximately 0.6 cm. T his is concerning for a renal neoplasm. Postsurgical changes related to a cystoprostatectomy with a right lower quadrant ileal conduit. Lymphatics: No retroperitoneal or pelv ic lymphadenopathy. Stable prominent abdominal nodes including a portacaval 1.3 cm short axis diameter node (image 53, series 302). Stable 1.5 cm in short axis di ameter common hepatic node (image 44, se marah 302). Soft tissues/bones: No suspicious osse ous lesions. Other : No free air/free fluid. Procedure Note Hui Deng MD - 11/13/2021 EXAMINATION: CT CHEST ABDOMEN PELVIS W W O CONTRAST UROGRAM, 11/12/2021 3:28 PM CLINICAL HISTORY : Malignant neoplasm of overlapping sites of bladder INDICATION: bladder cancer -- check for recurrence. COMPARISON: CT dated 05/14/2021 and CTs d ating as far back as 09/15/2019. TECHNIQUE: Initially, noncontrast CT of the abdomen and pelvis was obtained. CT of the chest, abdomen and pelvis was performed with the administration of intravenous contrast. DISCUSSION : CHEST : Thyroid : Unremarkable Lungs: No pneumothorax/pleural effusion. Stable 0.4 cm right lower lobe nodule (image 82, series 306). Numerous additional scattered stable subcentimeter pulmonary nodules/nodular densities have been marked on the images. There is a mild degree of emphys nataly/COPD. Lymphatics: No axillary lymphadenopathy. Nonspecifically prominent stable 1.2 x 2.3 cm left paratracheal node (image 47, series 4). Additional stable prominent mediastinal nodes are also seen. This includes a 1.0 cm in short axis diameter retrotracheal nod e (image 19, series 4). Stable prominent left hilar 0.8 cm in short axis diameter node (image 64, series 4). Mediastinum : No mediastinal masses. Bones/Soft tissue : No suspicious osseou s lesions. ABDOMEN/PELVIS : Hepatobiliary: Hepatic steatosis. A stab le area of enhancement towards the hepatic dome (image 15, series 302), likely represents an area of some focal fatty sparing. Gallbladder is unremarkable. Spleen : Unremarkable Pancreas : Unremarkable Gastrointestinal: Stomach and small jeff l are unremarkable. Colonic diverticulosis. Appendix not visualized. Genitourinary: Right adrenal gland is un remarkable. Stable nodularity of the left adrenal gland. Left renal cyst measures 1.9 cm, unchanged. Several bilateral renal too small to characterize hypodensities. There is a 1.4 x 1.6 cm lesion in the right inter polar kidney, slightly larger compared to 1.4 x 1.[address] of 05/14/2021 but progressively larger compared to more remote CTs dating to 03/28/2020 where it measured approximately 0.6 cm. This is concerning for a renal neoplasm. Postsurgical changes related to a cystoprostatectomy with a right lower quadrant ileal conduit. Lymphatics: No retroperitoneal or pelvic lymphadenopathy. Stable prominent abdominal nodes including a portacaval 1.3 cm short axis diameter node (image 53, series 302). Stable 1.5 cm in short axis diameter common hepatic node (image 44, series 302). Soft tissues/bones: No suspicious osseou s lesions. Other : No free air/free fluid. IMPRESSION: 1. Numerous stable bilateral subcentimet er pulmonary nodules compared to 05/14/2021. Emphysema/COPD. 2. Progressively larger 1.6 x 1.4 cm rig ht renal lesion dating to 04/07/2020, concerning for a renal neoplasm/carcinoma. 3. No definitive CT evidence of new/incr easing metastatic disease in the chest, abdomen or pelvis. Feliciano Chavarria MD G CT ORDERABLES .Serum Creatinine (11/12/2021 11:09 AM CDT)Only the most recent of2 results within the time period is included. athologist Signature Creatinine 0.78 0.67 - 1.17 [facility] mg/dL Comment: Testing Performed at [facility] Lab [facility], [address], [address], [place] [address] Specimen Anatomical Collection Method Collection Time Receive d Time (Source) Location / / Volume Laterality Blood 11/12/2021 11:09 11/12/2021 AM CDT 11:21 AM CDT Narrative [facility] - 11/12/2021 11:54 AM CDT Get labs and scans day before starting a t 11am, and f/u next day in clinic at 11 am. Feliciano Chavarria MD LAB BLOOD ORDERABLES Performing Organization Address City/State/ZIP Code Phon e Number [address] [place] [address] [address] (ABNORMAL) .CBC (11/12/2021 11:09 AM CDT)Only the most recent of2 resultswithin the time period is included. athologist Signature WBC 5.7 4.0 - 11.0 [facility] K/uL RBC 4.72 4.50 - 6.00 [facility] M/uL Hgb 12.6 (L) 14.0 - 18.0 [facility] gm/dL Comment: As part of CBC or as an individ ual orderable testing performed at [facility], [address] , [address], [place] [address] Hct 40.9 40.0 - 54.0 % [facility] Comment: As part of CBC or as an individ ual orderable testing performed at [facility], [address] [place] [address] , [address], [place] [address] MCV 87 82 - 98 fL [facility] MCH 26.7 (L) 27.0 - 31.0 pg [facility] MCHC 30.8 (L) 31.0 - 36.0 gm/dL [facility] RDW-SD 46.5 (H) 35.1 - 46.3 fL [facility] RDW-CV 14.6 12.0 - 15.5 % [facility] Platelet count 205 140 - 440 K/uL [facility] Comment: As part of CBC or as an individ ual orderable testing performed at [facility], [address] , [address], [place] [address] MPV 10.9 (H) 4.0 - 10.4 fL [facility] INRBC 0.0 <=0.0 % [facility] Comment: The INRBC (instrument NRBC) value reflec ts the enumeration of nucleated red blood cells contained i n a 200uL sample of whole blood analyzed by the instrumen t. This value may differ from the NRBC value reported in a manual differential, which is based on a 100 cell differentia l. As part of CBC testing performed at [facility] [address], [address], [place] [address] Specimen Anatomical Collection Method Collection Time Receive d Time (Source) Location / / Volume Laterality Blood 11/12/2021 11:09 11/12/2021 AM CDT 11:13 AM CDT Narrative [facility] - 11/12/2021 11:28 AM CDT Get labs and scans day before starting a t 11am, and f/u next day in clinic at 11 am. Feliciano Chavarria MD LAB BLOOD ORDERABLES Performing Organization Address City/State/ZIP Code Phon e Number [facility] [address] [place] [address]. [place] [address] [address] Glomerular Filtration Rate (11/12/2021 11:09 AM CDT)Only the most recent of2 resultswithin the time period is included. athologist Signature eGFR-AA 101 >=60 [facility] mL/min/1.73 sq. m Comment: Normal eGFR >= 60 mL/min/1.73 m2 Note: The eGFR is calculated using the C KD-EPI equation. The eGFR declines with age. eGFR <60 mL/min/1.73 m2 is considered as "decreased". This equation should only be used for patients 18 and older. According to the [employer]'s Kidney Disease Outcome Quality Initiative (KDOQI) classification and 2012 Kidney Disease Improving Global Outcomes (KDIGO) Clinical Practice Guideline, the stage of CKD should be categorized based on estimated GFR. Stage Description GFR mL/min/1. 73 m2 1 Normal or high GFR >=90 2 Mildly decreased GFR 60-89 3a Mildly to moderately decreased GFR 45-59 3b Moderately to severely decreased GFR 30-44 4 Severely decreased GFR 15-29 5 Kidney failure <15 Testing Performed at [facility], [address], [address], [place] [address] eGFR-BARBY 87 >=60 mL/min/1.73 sq. m [facility] Comment: Normal eGFR >= 60 mL/min/1.73 m2 Note: The eGFR is calculated using the C KD-EPI equation. The eGFR declines with age. eGFR <60 mL/min/1.73 m2 is considered as "decreased". This equation should only be used for patients 18 and older. According to the National [employer] ion's Kidney Disease Outcome Quality Initiative (KDOQI) classification and 2012 Kidney Disease Improving Global Outcomes (KDIGO) Clinical Practice Guideline, the stage of CKD should be categorized based on estimated GFR. Stage Description GFR mL/min/1. 73 m2 1 Normal or high GFR >=90 2 Mildly decreased GFR 60-89 3a Mildly to moderately decreased GFR 45-59 3b Moderately to severely decreased GFR 30-44 4 Severely decreased GFR 15-29 5 Kidney failure <15 Testing Performed at [facility], [address] [place] [address], [address], [place] [address] Specimen Anatomical Collection Method Collection Time Receive d Time (Source) Location / / Volume Laterality Blood 11/12/2021 11:09 11/12/2021 AM CDT 11:21 AM CDT Narrative [facility] - 11/12/2021 11:54 AM CDT Get labs and scans day before starting a t 11am, and f/u next day in clinic at 11 am. Feliciano Chavarria MD LAB BLOOD ORDERABLES Performing Organization Address City/State/ZIP Code Phon e Number [facility] [address] [place] [address]. [place] [address] [address] Fractionated Bilirubin (11/12/2021 11:09 AM CDT)Only the most recent of2 results within the time period is included. athologist Signature Bili Total 0.8 <=1.2 mg/dL [facility] Comment: Indocyanine Green (ICG) may cause falsel y elevated bilirubin results. Total and direct bilirubin must not be measured from samples containing indocyanine green. False elevation of total bilirubin can b e seen in patients with IgG concentrations above 28 g/L. Testing Performed at [facility], [address] [place] [address], [address], [place] [address] Bili Direct 0.2 <=0.3 mg/dL [facility] Comment: Indocyanine Green (ICG) may cause falsel y elevated bilirubin results. Total and direct bilirubin must not be measured from samples containing indocyanine green. Testing Performed at [facility], [address] [place] [address], [address], [place] [address] Bili Indirect 0.6 0.0 - 0.9 mg/dL [facility] Comment: Testing Performed at [facility], [facility] [facility], [address], [place] [address] Specimen Anatomical Collection Method Collection Time Receive d Time (Source) Location / / Volume Laterality Blood 11/12/2021 11:09 11/12/2021 AM CDT 11:21 AM CDT Narrative [facility] - 11/12/2021 11:54 AM CDT Get labs and scans day before starting a t 11am, and f/u next day in clinic at 11 am. Feliciano Chavarria MD LAB BLOOD ORDERABLES Performing Organization Address City/State/ZIP Code Phon e Number [address] [place] [address] [address] (ABNORMAL) Differential (11/12/2021 11:09 AM CDT)Only the most recent of2 resultswithin the time period is included. athologist Signature Neutrophil % 61.6 42.0 - 66.0 [facility] % Comment: As part of Differential perform ed at [facility], [address] [facility], [address], [place] [address] Lymphocyte % 22.2 (L) 24.0 - 44.0 % [facility] Monocyte % 10.0 (H) 2.0 - 7.0 % [facility] Eosinophil % 4.6 (H) 1.0 - 4.0 % [facility] Basophil % 1.2 (H) 0.0 - 1.0 % [facility] IGRE % 0.4 0.0 - 0.4 % [facility] Comment: IGRE % count includes Metamyelocytes, My elocytes, and Promyelocytes. As part of Differential performed at [facility], [address] [facility], [address], [place] [address] Neutrophil Abs 3.52 1.70 - 7.30 K/uL [facility] Lymphocyte Abs 1.27 1.00 - 4.80 K/uL [facility] Monocyte Abs 0.57 0.08 - 0.70 K/uL [facility] Eosinophil Abs 0.26 0.04 - 0.40 K/uL [facility] Basophil Abs 0.07 0.00 - 0.10 K/uL [facility] IG Abs 0.02 0.00 - 0.04 K/uL [facility] Specimen Anatomical Collection Method Collection Time Receive d Time (Source) Location / / Volume Laterality Blood 11/12/2021 11:09 11/12/2021 AM CDT 11:13 AM CDT Narrative [facility] - 11/12/2021 11:28 AM CDT Get labs and scans day before starting a t 11am, and f/u next day in clinic at 11 am. Feliciano Chavarria MD LAB BLOOD ORDERABLES Performing Organization Address City/State/ZIP Code Phon e Number [facility] [address] [facility] [place] [address] [address] BUN (11/12/2021 11:09 AM CDT)Only the most recent of2 resultswithin the time period is included. P athologist Signature BUN 13 6 - 23 mg/dL [facility] Comment: Testing Performed at [facility] Lab [facility], [address] [facility], [address], [place] [address] Specimen Anatomical Collection Method Collection Time Receive d Time (Source) Location / / Volume Laterality Blood 11/12/2021 11:09 11/12/2021 AM CDT 11:21 AM CDT Narrative [facility] - 11/12/2021 11:54 AM CDT Get labs and scans day before starting a t 11am, and f/u next day in clinic at 11 am. Feliciano Chavarria MD LAB BLOOD ORDERABLES Performing Organization Address City/[facility]/ZIP Code Phon e Number [facility] [address] [facility] [place] [address] [address] (ABNORMAL) ALT (11/12/2021 11:09 AM CDT)Only the most recent of2 resultswithin the time period is included. P athologist Signature ALT 74 (H) <=41 U/L [facility] Comment: Testing Performed at [facility] Lab [facility], [address] [place] [address], [address], [place] [address] Specimen Anatomical Collection Method Collection Time Receive d Time (Source) Location / / Volume Laterality Blood 11/12/2021 11:09 11/12/2021 AM CDT 11:21 AM CDT Narrative [facility] - 11/12/2021 11:54 AM CDT Get labs and scans day before starting a t 11am, and f/u next day in clinic at 11 am. Feliciano Chavarria MD LAB BLOOD ORDERABLES Performing Organization Address City/State/ZIP Code Phon e Number [facility] [address] [facility] [place] [address] [address] (ABNORMAL) Aspartate Aminotransferase (11/12/2021 11:09 AM CDT)Only the most recent of2 resultswithin the time period is included. athologist Signature AST 54 (H) <=40 U/L [facility] Comment: Testing Performed at [facility] Lab [facility], [address] [facility], [address], [place] [address] Specimen Anatomical Collection Method Collection Time Receive d Time (Source) Location / / Volume Laterality Blood 11/12/2021 11:09 11/12/2021 AM CDT 11:21 AM CDT Narrative [facility] - 11/12/2021 11:54 AM CDT Get labs and scans day before starting a t 11am, and f/u next day in clinic at 11 am. Feliciano Chavarria MD LAB BLOOD ORDERABLES Performing Organization Address City/[facility] Phon e Number [facility] [address] [place] [address]. [place] [address] [address] Total Protein (11/12/2021 11:09 AM CDT)Only the most recent of2 resultswithin the time period is included. athologist Signature Total Protein 7.5 6.4 - 8.3 [facility] g/dL Comment: Testing Performed at [facility] Lab [facility], [address] [facility], [address], [place] [address] Specimen Anatomical Collection Method Collection Time Receive d Time (Source) Location / / Volume Laterality Blood 11/12/2021 11:09 11/12/2021 AM CDT 11:21 AM CDT [facility] - 11/12/2021 11:54 AM CDT Get labs and scans day before starting a t 11am, and f/u next day in clinic at 11 am. Feliciano Chavarria MD LAB BLOOD ORDERABLES Performing Organization Address City/[facility]/ZIP [facility] Phon e Number [address] [place] [address] [address] PSA (11/12/2021 11:09 AM CDT)Only the most recent of2 resultswithin the time period is included. athologist Signature PSA <0.1 0.0 - 4.0 [facility] ng/mL Comment: Results greater than 4519 ng/mL may not be reliable due to matrix effect with extended dilution as it exceeds the manager income tax's recommended limit. Caution should be exercised when interpreting such temi ues and done in conjunction with clinica l context. Testing Performed at [facility], [address] [place] [address], [address], [place] [address] PSA Indication Diagnostic [facility] Specimen Anatomical Collection Method Collection Time Receive d Time (Source) Location / / Volume Laterality Blood 11/12/2021 11:09 11/12/2021 AM CDT 11:21 AM CDT Feliciano Chavarria MD LAB BLOOD ORDERABLES Performing Organization Address City/[facility] Phon e Number [facility] [address] [place] [address]. [place] [address] [address] Alkaline Phosphatase (11/12/2021 11:09 AM CDT)Only the most recent of2 results within the time period is included. athologist Signature Alk Phos 88 40 - 129 U/L [facility] Comment: Testing Performed at [facility], [address] [facility], [address], [place] [address] Specimen Anatomical Collection Method Collection Time Receive d Time (Source) Location / / Volume Laterality Blood 11/12/2021 11:09 11/12/2021 AM CDT 11:21 AM CDT Narrative [facility] - 11/12/2021 11:54 AM CDT Get labs and scans day before starting a t 11am, and f/u next day in clinic at 11 am. Feliciano Chavarria MD LAB BLOOD ORDERABLES Performing Organization Address City/[facility] Phon e Number [facility] [address] [place] [address]. [place] [address] [address] (ABNORMAL) Glucose Level (11/12/2021 11:09 AM CDT)Only the most recent of2 resultswithin the time period is included. P athologist Signature Glucose Level 118 (H) 70 - 99 [facility] mg/dL Comment: Effective 09/13/15, the glucose reference intervals have been updated based on [place] [employer] guidelines (Standards of Medical Care in Diabetes 2016. Diabetes Care 2016; 39: S13-S22). Fasting blood glucose: Normal: 70-99 mg/dL Impaired fasting glucose (increased risk for diabetes or pre-diabetes): 100- 125 mg/dL Diabetes mellitus: >/=126 mg/dL Random blood glucose: Normal: 70-199 mg/dL Note: Random glucose >100 mg/dL is assoc iated with increased risk for diabetes Testing Performed at [facility], [address] [place] [address], [address], [place] [address] Specimen Anatomical Collection Method Collection Time Receive d Time (Source) Location / / Volume Laterality Blood 11/12/2021 11:11/12/2021 AM CDT 11:21 AM CDT Narrative [facility] - 11/12/2021 11:54 AM CDT Get labs and scans day before starting a t 11am, and f/u next day in clinic at 11 am. Feliciano Chavarria MD LAB BLOOD ORDERABLES Performing Organization Address City/State/ZIP Code Phon e Number [facility] [address] [facility] [place] [address] [address] Vitamin B12 Level (11/12/2021 11:09 AM CDT)Only the most recent of2 results within the time period is included. P athologist Signature Vitamin B12 Lvl 394 211 - 946 [facility] pg/mL [facility] Specimen Anatomical Collection Method Collection Time Receive d Time (Source) Location / / Volume Laterality Blood 11/12/2021 11:11/12/2021 AM CDT 11:50 AM CDT Narrative [facility] - 12:21 PM CDT Get labs and scans day before starting a t 11am, and f/u next day in clinic at 11 am. Feliciano Chavarria MD LAB BLOOD ORDERABLES Performing Organization Address City/State/ZIP Code Phon e Number [facility] CANCER Unless otherwise noted, [place] [address] CENTER all lab tests performed by: Division of Pathology and Laboratory Medicine [address] [place] [address] [place] Calcium Level (11/12/2021 11:09 AM CDT)Only the most recent of2 resultswithin the time period is included. P athologist Signature Calcium Lvl 9.5 8.4 - 10.2 [facility] mg/dL Comment: Testing Performed at [facility] Lab [facility], [address], [address], [place] [address] Specimen Anatomical Collection Method Collection Time Receive d Time (Source) Location / / Volume Laterality Blood 11/12/2021 11:09 11/12/2021 AM CDT 11:21 AM CDT Narrative [facility] - 11/12/2021 11:54 AM CDT Get labs and scans day before starting a t 11am, and f/u next day in clinic at 11 am. Feliciano Chavarria MD LAB BLOOD ORDERABLES Performing Organization Address City/[facility]/ZIP Code Phon e Number [facility] [address] [facility] [place] [address] [address] Albumin Level (11/12/2021 11:09 AM CDT)Only the most recent of2 resultswithin the time period is included. P athologist Signature Albumin Lvl 4.7 3.5 - 5.2 [facility] gm/dL Comment: Testing Performed at [facility], [address] [facility], [address], [place] [address] Specimen Anatomical Collection Method Collection Time Receive d Time (Source) Location / / Volume Laterality Blood 11/12/2021 11:09 11/12/2021 AM CDT 11:21 AM CDT [facility] CLINIC - 11/12/2021 11:54 AM CDT Get labs and scans day before starting a t 11am, and f/u next day in clinic at 11 am. Feliciano Chavarria MD LAB BLOOD ORDERABLES Performing Organization Address City/[facility]/ZIP Code Phon e Number [facility] [address] [facility] [place] [address] [address] Electrolyte Panel (11/12/2021 11:09 AM CDT)Only the most recent of2 results within the time period is included. P athologist Signature Sodium Lvl 141 136 - 145 [facility] mEq/L Comment: Testing Performed at [facility], [address], [address], [place] [address] Potassium Lvl 4.2 3.5 - 5.1 mEq/L [facility] Comment: Testing Performed at [facility], [address], [address], [place] [address] Chloride 106 98 - 107 mEq/L [facility] Comment: Testing Performed at [facility], [address], [address], [place] [address] CO2 27 22 - 29 mEq/L [facility] Comment: Testing Performed at [facility], [address], [address], [place] [address] Anion Gap 8 4 - 14 mEq/L [facility] Comment: Testing Performed at [facility], [address], [address], [place] [address] Specimen Anatomical Collection Method Collection Time Receive d Time (Source) Location / / Volume Laterality Blood 11/12/2021 11:09 11/12/2021 AM CDT 11:21 AM CDT Narrative [facility] - 11/12/2021 11:54 AM CDT Get labs and scans day before starting a t 11am, and f/u next day in clinic at 11 am. Feliciano Chavarria MD LAB BLOOD ORDERABLES Performing Organization Address City/State/ZIP Code Phon e Number [facility] [address] [place] [address] [address] (ABNORMAL) LDH (05/14/2021 7:39 AM CDT) P athologist Signature LDH 227 (H) 135 - 225 [facility] U/L [facility] Comment: Results greater than 1651 U/L m ay not be reliable due to matrix effect with extended dilution as it exceeds the manu facturer's recommended limit. Caution should be exercised when interpreting such valu es and done in conjunction with clinical context. Specimen Anatomical Collection Method Collection Time Receive d Time (Source) Location / / Volume Laterality Blood 05/14/2021 7:39 AM 9:01 CDT AM CDT Feliciano Chavarria MD LAB BLOOD ORDERABLES Performing Organization Address City/State/ZIP Code Phon e Number [facility] DIAGNOSTIC Unless otherwise noted, [place], [place] [address] CENTER all lab tests performed by: Division of Pathology and Laboratory Medicine [address] [place] [address] [place] after 04/30/2021 Insurance Payer Benefit Plan / Subscriber ID Effective Dates Phone Addre ss Type Group AARP C [employer] [facility] [id number] 2020-Present [address] [address] Medicare [place] [address] Ulices Garcia Personal/Family Self 1945 [facility] [place] [address] Advance Directives Type Date Recorded Patient Vice President [employer] Explanati on Advance Directives: 05/07/2020 Directive to Physicians Living Will and Family or Surrogates-Maricruz bateman Will Code Status Date Activated Date Inactivated Comments Full Code 05/19/2020 3:56 PM 05/31/2020 4:21 PM Care Teams Reverse Unit Operator Relationship Specialty Start Date End Date Josesito Pa MD PCP - External Follow Up A Urology 02/23/[address] [place] [address] Iliana Marin, PCP - General Family Practice 08/04/20 BRICK SETTER [address] [place] [address] Josesito Pa MD PCP - General Urology 05/14/[address] [place] [address]
--- OUTSIDE RECORDS SUMMARY | 2022-04-30 17:09 | XMS REPORT | Continuity of Care Document ---
:1945 Author Organization [facility] t Address [address] [place] [address]. [address] [place] [address] Care Team Providers Name Role Phone Tomas GUTIERREZ, Iliana Rush Primary Care Physician ARTURO LERNER Attending Clinician Unavailable CRUZ GARCIA Attending Clinician Unavailable SYSTEM, PROVIDER NOT IN Attending Clinician Unavailable FELICIANO CHAVARRIA Attending Clinician Unavailable Feliciano Chavarria MD Attending Clinician Philly Nguyen MD Attending Clinician PHILLY NGUYEN Attending Clinician Unavailable Nathaly Elena RN Attending Clinician Unavailable Javier Connelly RN Attending Clinician Unavailable JAVIER CONNELLY Attending Clinician Unavailable Rosendo Reynolds MD, I Attending Clinician ROSENDO REYNOLDS I Attending Clinician Unavailable [facility] Attending Clinician Unavailable ALFONSO SAUCEDA Attending Clinician Unavailable DARIUS ROD III Attending Clinician Unavailable MARTA LINN Attending Clinician Unavailable ANA MARSHALL Attending Clinician Unavailable URIEL RUSSELL Attending Clinician Unavailable MARTA RAWLS Attending Clinician Unavailable CHAVO ENLGE Attending Clinician Unavailable EFE TOTH Attending Clinician Unavailable CRUZ GARCIA Admitting Clinician Unavailable FELICIANO CHAVARRIA Admitting Clinician Unavailable Payers Payer Name Policy Type Policy Number Effective Date Expiration Date S ource AAR MEDICARE [id number] 2020 COMPLETE 00:00:00 MEDICARE PART A [id number] \\T\\ [id number] - MEDICARE HUMANA MEDICARE [id number] HMO - RNPO PCP 00:00:00 AAR Medicare C1 [id number] [facility] HUMANA C1 [id number] [facility] HUMANA C1 [id number] [facility] HUMANA C1 [id number] [facility] HUMANA C1 [id number] [facility] HUMANA C1 [id number] [facility] HUMANA C1 [id number] [facility] HUMANA C1 [id number] [facility] HUMANA C1 [id number] [facility] HUMANA C1 [id number] [facility] HUMANA C1 [id number] [facility] Problems Condition Condition Condition Status Onset Resolution Last Treating Co mments Source Name Details Category Date Date Treatment Clinician Date 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 [place] Surroundi ng BINU drain insertion site. Keflex 500 mg TID x 5 days initiated Recovery Recovery Disease Active Overview: Un leatha following following 05-23 Formattin i ty of surgery surgery 00:00: g of this note might be [place] different n from the Cancer original. 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 Patient is on repatha. Lipids followed by outside cardiolog ist. Preoperati Preoperati Disease Active Last U nivers ve ve 3-10 Assessmen ity of cardiovasc cardiovasc 00:00: t & Plan: [place] ular ular 00 Nikhil CORBIN examinatio examinatio g of this Anderso n n note n might be Cancer different Center from the original. Preoperat carla cardiovas cular evaluatio n prior to cystectom [...] cular events in the periopera tive period. Bladder Bladder Disease Active Overview: [facility] ers cancer cancer 03-21 Formattin ity of 00:00: g of this [place] 00 note might be Anderso different n from the Cancer original. Center Added automatic ally from request for surgery [id number] Malignant Malignant Disease Active Overview: Univers neoplasm neoplasm 03-21 Formattin ity of of of 00:00: g of this [place] overlappin overlappin 00 note MD bateman sites of g sites of might be Anderso bladder bladder different n from the Cancer original. 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 [id number] Urothelial Problem Active Co mmon carcinoma Spirit of bladder - [facility] with St invasion [facility] of [facility] [id number] Malignant Problem Active Com mon neoplasm Spirit of - CHI anterior St wall of [facility] urinary [facility] bladder Center Hypertensi Hypertensi Disease Active Last U nivers on on Assessmen ity of t & Plan: Jorge bateman of this Anderso note n might be Cancer different Center from the original. BP is near goal, continue amlodipin e. Chronic Chronic Disease Active Univers obstructiv obstructiv it y of e e Jorge pulmonary pulmonary MD disease disease Anderso [facility] Allergies, Adverse Reactions, Alerts This patient has no known allergies or adverse reactions. Family History Family Member Diagnosis Comments Start Date Stop Date Source Natural father [facility] Henry Cance r [place] Natural mother [facility] Robin Can r [place] Social History Social Habit Start Date Stop Date Quantity Comments Source History of Tobacco Current Smoker Co mmon Spirit - Use [facility] Sex Assigned At Common Sp leydi - [facility] Exposure to Not sure [facility] Ousmane [place] of SARS-CoV-2 (event) Medici ne Alcohol intake 2021-05-24 2021-05-24 Lifetime University of 00:00:00 00:00:00 non-drinker [place] MD Lev doshi (finding) Cancer Center Education 2020-04-10 2020-04-10 16 University of 00:00:00 00:00:00 Jorge donald [facility] Cigarettes smoked 2020-03-28 2020-03-28 Univers ity of current (pack per 00:00:00 00:00:00 [facility] ) - Reported Cancer Ce nter Cigarette 2020-03-28 2020-03-28 University of pack-years 00:00:00 00:00:00 Jorge donald [facility] Tobacco use and 2020-03-28 2020-03-28 Smokeless Universit y of exposure 00:00:00 00:00:00 tobacco non-user [facility] History SDOH 2020-03-28 2020-03-28 1 University o f Alcohol Frequency 00:00:00 00:00:00 [facility] History SDOH 2020-03-28 2020-03-28 99 University o f Alcohol Std Drinks 00:00:00 00:00:00 [facility] History SDOH 2020-03-28 2020-03-28 1 University o f Alcohol Binge 00:00:00 00:00:00 [place] MD Val butler [facility] Smoking Status Start Date Stop Date Source Ex-smoker 2020-03-28 00:00:00 2020-03-28 00:00:00 Universi ty of [facility] Current Smoker 2020-03-08 00:00:00 [facility] Medications Ordered Filled Start Stop Current Ordering Indication Dosage Frequency Signature Comments Components Source Medication Medication Date Date Medication? Clinician (SIG) Name Name evolocumab Yes hypercholes Every Univers (Repatha 05-24 terolemia other week ity of [employer]) 09:35: [place] 140 mg/mL 46 MD toledo [facility] acetaminoph 2021- No 500mg Take 500 Univers en 3-29 03-29 mg by ity of (TYLENOL) 10:25: 00:00 mouth as Flavio as 500 mg 39 :00 needed for MD tablet mild pain. [facility] celecoxib 2021-0 Yes 200mg Take 1 [facility] (CELEBREX) 1-26 capsule by Col lege 200 MG 00:00: mouth of capsule 00 daily as Medicin needed for e Pain. tadalafil 2021-0 Yes 5mg Take 1 Cheikh (CIALIS) 5 1-26 Tablet by Tristan ege MG tablet 00:00: mouth of 00 daily. Medicin e sildenafil Yes 100mg Take 1 Bayl or citrate 1-26 Tablet by College (VIAGRA) 00:00: mouth of 100 MG 00 daily as Medicin tablet needed. e celecoxib 2021-0 Yes 200mg Take 1 [facility] (CELEBREX) 1-26 capsule by Col lege 200 MG 00:00: mouth of capsule 00 daily. Medicin e celecoxib 2021-0 Yes 200mg Take 1 [facility] (CELEBREX) 1-26 capsule by Col lege 200 MG 00:00: mouth of capsule 00 daily as Medicin needed for e Pain. tadalafil 2021-0 Yes 5mg Take 1 Cheikh (CIALIS) 5 1-26 Tablet by Tristan ege MG tablet 00:00: mouth of 00 daily. Medicin e sildenafil Yes 100mg Take 1 Bayl or citrate 1-26 Tablet by [place] (VIAGRA) 00:00: mouth of 100 MG 00 daily as Medicin tablet needed. e celecoxib 2021- No 200mg Take 1 [facility]l or (CELEBREX) 1-26 02-09 capsule by Co llege 200 MG 00:00: 00:00 mouth of capsule 00 :00 daily. Medicin e ferrous Yes 1{tbl} Take 1 [facility] sulfate 325 4-29 Tablet by Col lege (65 Fe) MG 00:00: mouth. of tablet 00 Medicin e ferrous Yes 1{tbl} Take 1 [facility] sulfate 325 4-29 Tablet by Col lege (65 Fe) MG 00:00: mouth. of tablet 00 Medicin e senna Yes 1{tbl} Take 1 Cheikh (SENOKOT) 4-06 Tablet by Cale nicolas 8.6 MG 00:00: mouth. of tablet 00 Medicin e senna 2021- No Recovery 1{tbl} Take 1 Uni vers (SENOKOT) 4-06 03-29 following tablet by castillo of 8.6 mg 00:00: 00:00 surgery mouth 2 [place] tablet 00 :00 (two) MD times a day as n needed for Cancer constipati Center on. senna 2021- No 1{tbl} Take 1 [facility] (SENOKOT) 4-06 02-09 Tablet by Tristan dhaliwal 8.6 MG 00:00: 00:00 mouth. of tablet 00 :00 Medicin e Gemcitabine Gemcitabine 2019-02 No Gemcitabin HCl 2 GM HCl 2 GM 1-20 e HCl 2 GM 00:00: 00 Gemcitabine Gemcitabine 2019-02 No Gemcitabin HCl 2 GM HCl 2 GM 1-20 e HCl 2 GM 00:00: 00 Gemcitabine Gemcitabine 2019-02 No Gemcitabin HCl 2 GM HCl 2 GM 1-20 e HCl 2 GM 00:00: 00 Gemcitabine Gemcitabine 2019-02 No Gemcitabin HCl 2 GM HCl 2 GM 1-20 e HCl 2 GM 00:00: 00 Gemcitabine Gemcitabine 2019-02 No Gemcitabin HCl 2 GM HCl 2 GM 1-20 e HCl 2 GM 00:00: 00 Gemcitabine Gemcitabine 2019-02 No Gemcitabin HCl 2 GM HCl 2 GM 1-20 e HCl 2 GM 00:00: 00 Gemcitabine Gemcitabine 2019-02 No Gemcitabin HCl 2 GM HCl 2 GM 1-20 e HCl 2 GM 00:00: 00 Gemcitabine Gemcitabine 2019-02 No Gemcitabin HCl 2 GM HCl 2 GM 1-20 e HCl 2 GM 00:00: 00 Gemcitabine Gemcitabine 2019-02 No Gemcitabin HCl 2 GM HCl 2 GM 1-20 e HCl 2 GM 00:00: 00 Gemcitabine Gemcitabine 2019-02 No Gemcitabin HCl 2 GM HCl 2 GM 1-20 e HCl 2 GM 00:00: 00 Gemcitabine Gemcitabine 2019-02 No Gemcitabin HCl 2 GM HCl 2 GM 1-20 e HCl 2 GM 00:00: 00 amlodipine 2020-0 Yes 5mg Take 5 mg Ba ylor (NORVASC) 5 8-31 by mouth. Col lege MG tablet 00:00: of Medicin e amlodipine 2020-0 Yes 5mg Take 5 mg Ba ylor (NORVASC) 5 8-31 by mouth. Col lege MG tablet 00:00: of Medicin e amLODIPine 2020-0 Yes 5mg Take 5 mg Un leatha (NORVASC) 5 8-31 by mouth ity of mg tablet 00:00: daily. [place] 00 [facility] Evolocumab 2019-0 Yes Inject Baylo r 140 MG/ML 7- into the Colleg e SOAJ 00:00: skin. of Medicin e Evolocumab 2019-0 Yes Inject Baylo r 140 MG/ML 7-01 into the Colleg e SOAJ 00:00: skin. of Medicin e Bactrim Bactrim Yes Sachi 1 tablet Comm on [place] [facility] Tamsulosin Tamsulosin Yes Sachi 1 capsule Common HCl HCl [facility] Amlodipine Amlodipine Yes Sachi 1 tablet Common Besylate Besylate [place] Spi rit [facility] Repatha Repatha Yes Sachi as Common Craig directed [facility] Cialis Cialis Yes Sachi 1 tablet Common [facility] Tamsulosin Tamsulosin No 1{capsu QD Tamsulosin HCl 0.4 MG HCl 0.4 MG le} HCl 0.4 MG Amlodipine Amlodipine No 1{table QD Amlodipine Besylate 5 Besylate 5 t} Besylate 5 MG MG MG Repatha Repatha No Repatha 140mg/ml 140mg/ml 140mg/ml Cialis 20 Cialis 20 No 1{table Cialis 20 MG MG t} MG Bactrim Bactrim No 1{table QD Bactrim 400-80 MG 400-80 MG t} 400-80 MG Cialis 20 Cialis 20 No 1{table Cialis 20 MG MG t} MG Bactrim Bactrim No 1{table QD Bactrim 400-80 MG 400-80 MG t} 400-80 MG Amlodipine Amlodipine No 1{table QD Amlodipine Besylate 5 Besylate 5 t} Besylate 5 MG MG MG Tamsulosin Tamsulosin No 1{capsu QD Tamsulosin HCl 0.4 MG HCl 0.4 MG le} HCl 0.4 MG Repatha Repatha No Repatha 140mg/ml 140mg/ml 140mg/ml Tamsulosin Tamsulosin No 1{capsu QD Tamsulosin HCl 0.4 MG HCl 0.4 MG le} HCl 0.4 MG Cialis 20 Cialis 20 No 1{table Cialis 20 MG MG t} MG Bactrim Bactrim No 1{table QD Bactrim 400-80 MG 400-80 MG t} 400-80 MG Amlodipine Amlodipine No 1{table QD Amlodipine Besylate 5 Besylate 5 t} Besylate 5 MG MG MG Tamsulosin Tamsulosin No 1{capsu QD Tamsulosin HCl 0.4 MG HCl 0.4 MG le} HCl 0.4 MG Repatha Repatha No Repatha 140mg/ml 140mg/ml 140mg/ml Amlodipine Amlodipine No 1{table QD Amlodipine Besylate 5 Besylate 5 t} Besylate 5 MG MG MG Repatha Repatha No Repatha 140mg/ml 140mg/ml 140mg/ml Amlodipine Amlodipine No 1{table QD Amlodipine Besylate 5 Besylate 5 t} Besylate 5 MG MG MG Tamsulosin Tamsulosin No 1{capsu QD Tamsulosin HCl 0.4 MG HCl 0.4 MG le} HCl 0.4 MG Cialis 20 Cialis 20 No 1{table Cialis 20 MG MG t} MG Bactrim Bactrim No 1{table QD Bactrim 400-80 MG 400-80 MG t} 400-80 MG Cialis 20 Cialis 20 No 1{table Cialis 20 MG MG t} MG Bactrim Bactrim No 1{table QD Bactrim 400-80 MG 400-80 MG t} 400-80 MG Repatha Repatha No Repatha 140mg/ml 140mg/ml 140mg/ml Amlodipine Amlodipine No 1{table QD Amlodipine Besylate 5 Besylate 5 t} Besylate 5 MG MG MG Tamsulosin Tamsulosin No 1{capsu QD Tamsulosin HCl 0.4 MG HCl 0.4 MG le} HCl 0.4 MG Bactrim Bactrim No 1{table QD Bactrim 400-80 MG 400-80 MG t} 400-80 MG Cialis 20 Cialis 20 No 1{table Cialis 20 MG MG t} MG Repatha Repatha No Repatha 140mg/ml 140mg/ml 140mg/ml Amlodipine Amlodipine No 1{table QD Amlodipine Besylate 5 Besylate 5 t} Besylate 5 MG MG MG Tamsulosin Tamsulosin No 1{capsu QD Tamsulosin HCl 0.4 MG HCl 0.4 MG le} HCl 0.4 MG Bactrim Bactrim No 1{table QD Bactrim 400-80 MG 400-80 MG t} 400-80 MG Repatha Repatha No Repatha 140mg/ml 140mg/ml 140mg/ml Cialis 20 Cialis 20 No 1{table Cialis 20 MG MG t} MG Tamsulosin Tamsulosin No 1{capsu QD Tamsulosin HCl 0.4 MG HCl 0.4 MG le} HCl 0.4 MG Amlodipine Amlodipine No 1{table QD Amlodipine Besylate 5 Besylate 5 t} Besylate 5 MG MG MG Bactrim Bactrim No 1{table QD Bactrim 400-80 MG 400-80 MG t} 400-80 MG Cialis 20 Cialis 20 No 1{table Cialis 20 MG MG t} MG Repatha Repatha No Repatha 140mg/ml 140mg/ml 140mg/ml Tamsulosin Tamsulosin No 1{capsu QD Tamsulosin HCl 0.4 MG HCl 0.4 MG le} HCl 0.4 MG Amlodipine Amlodipine No 1{table QD Amlodipine Besylate 5 Besylate 5 t} Besylate 5 MG MG MG Cialis 20 Cialis 20 No 1{table Cialis 20 MG MG t} MG Bactrim Bactrim No 1{table QD Bactrim 400-80 MG 400-80 MG t} 400-80 MG Repatha Repatha No Repatha 140mg/ml 140mg/ml 140mg/ml Tamsulosin Tamsulosin No 1{capsu QD Tamsulosin HCl 0.4 MG HCl 0.4 MG le} HCl 0.4 MG Amlodipine Amlodipine No 1{table QD Amlodipine Besylate 5 Besylate 5 t} Besylate 5 MG MG MG Cialis 20 Cialis 20 No 1{table Cialis 20 MG MG t} MG Bactrim Bactrim No 1{table QD Bactrim 400-80 MG 400-80 MG t} 400-80 MG Repatha Repatha No Repatha 140mg/ml 140mg/ml 140mg/ml Amlodipine Amlodipine No 1{table QD Amlodipine Common Besylate 5 Besylate 5 t} Besylate 5 Spirit MG MG MG - [facility] Repatha Repatha No Repatha Common 140mg/ml 140mg/ml 140mg/ml Spi [facility] Bactrim Bactrim No 1{table QD Bactrim Com mon 400-80 MG 400-80 MG t} 400-80 MG [facility] Tamsulosin Tamsulosin No 1{capsu QD Tamsulosin Common HCl 0.4 MG HCl 0.4 MG le} HCl 0.4 MG [facility] Cialis 20 Cialis 20 No 1{table Cialis 20 Common MG MG t} MG [facility] Amlodipine Amlodipine No 1{table QD Amlodipine Besylate 5 Besylate 5 t} Besylate 5 MG MG MG Repatha Repatha No Repatha 140mg/ml 140mg/ml 140mg/ml Cialis 20 Cialis 20 No 1{table Cialis 20 MG MG t} MG Tamsulosin Tamsulosin No 1{capsu QD Tamsulosin HCl 0.4 MG HCl 0.4 MG le} HCl 0.4 MG Bactrim Bactrim No 1{table QD Bactrim 400-80 MG 400-80 MG t} 400-80 MG Tamsulosin Tamsulosin No 1{capsu QD Tamsulosin HCl 0.4 MG HCl 0.4 MG le} HCl 0.4 MG Amlodipine Amlodipine No 1{table QD Amlodipine Besylate 5 Besylate 5 t} Besylate 5 MG MG MG Repatha Repatha No Repatha 140mg/ml 140mg/ml 140mg/ml Cialis 20 Cialis 20 No 1{table Cialis 20 MG MG t} MG Bactrim Bactrim No 1{table QD Bactrim 400-80 MG 400-80 MG t} 400-80 MG Tamsulosin Tamsulosin No 1{capsu QD Tamsulosin HCl 0.4 MG HCl 0.4 MG le} HCl 0.4 MG Amlodipine Amlodipine No 1{table QD Amlodipine Besylate 5 Besylate 5 t} Besylate 5 MG MG MG Repatha Repatha No Repatha 140mg/ml 140mg/ml 140mg/ml Cialis 20 Cialis 20 No 1{table Cialis 20 MG MG t} MG Bactrim Bactrim No 1{table QD Bactrim 400-80 MG 400-80 MG t} 400-80 MG Tamsulosin Tamsulosin No 1{capsu QD Tamsulosin HCl 0.4 MG HCl 0.4 MG le} HCl 0.4 MG Amlodipine Amlodipine No 1{table QD Amlodipine Besylate 5 Besylate 5 t} Besylate 5 MG MG MG Repatha Repatha No Repatha 140mg/ml 140mg/ml 140mg/ml Cialis 20 Cialis 20 No 1{table Cialis 20 MG MG t} MG Bactrim Bactrim No 1{table QD Bactrim 400-80 MG 400-80 MG t} 400-80 MG Tamsulosin Tamsulosin No 1{capsu QD Tamsulosin HCl 0.4 MG HCl 0.4 MG le} HCl 0.4 MG Amlodipine Amlodipine No 1{table QD Amlodipine Besylate 5 Besylate 5 t} Besylate 5 MG MG MG Repatha Repatha No Repatha 140mg/ml 140mg/ml 140mg/ml Cialis 20 Cialis 20 No 1{table Cialis 20 MG MG t} MG Bactrim Bactrim No 1{table QD Bactrim 400-80 MG 400-80 MG t} 400-80 MG Immunizations Ordered Filled Immunization Date Status Comments Sourc e Immunization Name Name Pfizer SARS-CoV-2 2020-05-06 Completed Univer sity of Vaccination (Purple 00:00:00 [facility]) Cancer Center Pfizer SARS-CoV-2 2020-04-14 Completed Univer sity of Vaccination (Purple 00:00:00 [facility]) Cancer Center Vital Signs Vital Name Observation Time Observation Value Comments Source Systolic blood 2021-03-28 19:27:00 135 mm[Hg] [facility] pressure Medicine Diastolic blood 2021-03-28 19:27:00 72 mm[Hg] [facility] Medicine Heart rate 2021-03-28 19:27:00 87 /min [facility] Respiratory rate 2021-03-28 19:27:00 16 /min [facility] Body height 2021-03-28 19:27:00 177.8 cm [facility] Body weight 2021-03-28 19:27:00 84.823 kg [facility] BMI 2021-03-28 19:27:00 26.83 kg/m2 [facility] Systolic blood 2021-03-14 20:00:00 153 mm[Hg] [facility] pressure Medicine Diastolic blood 2021-03-14 20:00:00 84 mm[Hg] [facility] Medicine Heart rate 2021-03-14 20:00:00 76 /min [facility] Body height 2021-03-14 20:00:00 177.8 cm [facility] Body weight 2021-03-14 20:00:00 83.915 [facility] BMI 2021-03-14 20:00:00 26.54 kg/m2 [facility] HEIGHT 2020-07-04 10:00:00 177.8 cm WEIGHT 2020-07-04 10:00:00 77.6 kg HEIGHT 2020-07-03 13:18:00 177.8 cm WEIGHT 2020-07-03 13:18:00 78.4 kg WEIGHT 2020-05-31 03:42:52 81.5 kg HEIGHT 2020-05-23 16:14:04 177.8 cm WEIGHT 2020-05-15 13:26:00 86.7 kg WEIGHT 2020-04-26 09:51:35 89 kg HEIGHT 2020-04-25 08:18:00 177.8 cm WEIGHT 2020-04-25 08:18:00 88.1 kg WEIGHT 2020-04-10 12:23:03 88 kg HEIGHT 2020-03-28 07:29:00 177.8 cm WEIGHT 2020-03-28 07:29:00 88.5 kg height 2020-03-08 16:30:00 70 [in_i] [facility] weight 2020-03-08 16:30:00 192.2 [lb_av] [facility] temperature 2020-03-08 16:30:00 98.2 [degF] [facility] bmi 2020-03-08 16:30:00 27.57 kg/m2 [facility] oximetry 2020-03-08 16:30:00 95 % [facility] blood pressure 2020-03-08 16:30:00 161 mm[Hg] [facility] - systolic [facility] blood pressure 2020-03-08 16:30:00 77 mm[Hg] [facility] - diastolic [facility] height 2020-03-02 11:30:00 70 [in_i] Common [facility] weight 2020-03-02 11:30:00 190.8 [lb_av] [facility] temperature 2020-03-02 11:30:00 98.4 [degF] [facility] bmi 2020-03-02 11:30:00 27.37 kg/m2 Common S pirit - [facility] oximetry 2020-03-02 11:30:00 94 % [facility] S pirit - [facility] blood pressure 2020-03-02 11:30:00 167 mm[Hg] [facility] - systolic [facility] blood pressure 2020-03-02 11:30:00 75 mm[Hg] [facility] - diastolic [facility] height 2020-02-29 16:15:00 70 [in_i] [facility]irit - [facility] weight 2020-02-29 16:15:00 190.8 [lb_av] [facility] temperature 2020-02-29 16:15:00 97.8 [degF] Common S pirit - [facility] bmi 2020-02-29 16:15:00 27.37 kg/m2 Common S pirit - [facility] oximetry 2020-02-29 16:15:00 93 % Common S [facility]irit - [facility] blood pressure 2020-02-29 16:15:00 176 mm[Hg] [facility] - systolic [facility] blood pressure 2020-02-29 16:15:00 81 mm[Hg] [facility] - diastolic [facility] height 2020-02-07 15:00:00 70 [in_i] Common S pirit - [facility] weight 2020-02-07 15:00:00 190.8 [lb_av] [facility] temperature 2020-02-07 15:00:00 98.3 [degF] Common S pirit - [facility] bmi 2020-02-07 15:00:00 27.37 kg/m2 Common S pirit - [facility] oximetry 2020-02-07 15:00:00 97 % Common S pirit - [facility] blood pressure 2020-02-07 15:00:00 173 mm[Hg] [facility] - systolic [facility] blood pressure 2020-02-07 15:00:00 77 mm[Hg] [facility] - diastolic [facility] height 2020-02-02 10:00:00 70 [in_i] Common S pirit [facility] weight 2020-02-02 10:00:00 189.8 [lb_av] [facility] - [facility] temperature 2020-02-02 10:00:00 98.5 [degF] [facility] bmi 2020-02-02 10:00:00 27.23 kg/m2 Common S pirit [facility] oximetry 2020-02-02 10:00:00 95 % Common S pirit - [facility] blood pressure 2020-02-02 10:00:00 177 mm[Hg] [facility] - systolic [facility] blood pressure 2020-02-02 10:00:00 76 mm[Hg] [facility] - diastolic [facility] height 2020-01-06 08:30:00 70 [in_i] Common [facility] weight 2020-01-06 08:30:00 189.8 [lb_av] Common [facility] temperature 2020-01-06 08:30:00 98.3 [degF] [facility] bmi 2020-01-06 08:30:00 27.23 kg/m2 [facility] oximetry 2020-01-06 08:30:00 96 % [facility] blood pressure 2020-01-06 08:30:00 188 mm[Hg] [facility] - systolic [facility] blood pressure 2020-01-06 08:30:00 86 mm[Hg] [facility] - diastolic [facility] Systolic blood 2021-11-12 20:26:52 150 mm[Hg] Univer sity of pressure Jorge Marcos on [facility] Center Diastolic blood 2021-11-12 20:26:52 68 mm[Hg] Unive rsity of pressure Jorge Marcos on Cancer Center Heart rate 2021-11-12 20:26:52 67 /min [facility] MD Marcos on Cancer Center Respiratory rate 2021-11-12 20:26:52 19 /min [facility] Oxygen saturation in 2021-11-12 20:26:52 98 /min [facility] Arterial blood by Jorge [facility] Body temperature 2021-05-24 14:31:48 36.61 Eli [facility] Body weight 2021-05-24 14:30:00 85.1 kg [facility] BMI 2021-05-24 14:30:00 26.92 kg/m2 [facility] MD [facility] Procedures Procedure Date / Time Performing Clinician Source Performed CT CHEST ABDOMEN PELVIS W 2021-11-12 20:28:17 Mario Kay [facility] WO CONTRAST UROGRAM [facility] COMPREHENSIVE METABOLIC 2021-11-12 16:09:00 Mario Kay [facility] PANEL [facility] VITAMIN B12 LEVEL 2021-11-12 16:09:00 Mario Kay [facility] COMPLETE BLOOD COUNT W/ 2021-11-12 16:09:00 Mario Kay [facility] DIFFERENTIAL [facility] PROSTATE SPECIFIC ANTIGEN 2021-11-12 16:09:00 Mario Kay [facility] GLUCOSE LEVEL 2021-11-12 16:09:[facility] BLOOD UREA NITROGEN 2021-11-12 16:09:00 [facility] ELECTROLYTE PANEL 2021-11-12 16:09:00 [facility] SERUM CREATININE 2021-11-12 16:09:00 [facility] .GLOMERULAR FILTRATION 2021-11-12 16:09:00 [facility]o [facility] RATE [facility] CALCIUM LEVEL TOTAL 2021-11-12 16:09:00 [facility] ALBUMIN LEVEL 2021-11-12 16:09:00 Jono, [facility] o f [facility] ALKALINE PHOSPHATASE 2021-11-12 16:09:00 [facility] AMINOTRANSFERASE 2021-11-12 16:09:00 [facility]o [facility] ASPARTATE AMINOTRANSFERASE 2021-11-12 16:09:00 [facility] TOTAL PROTEIN 2021-11-12 16:09:00 Jono [facility] FRACTIONATED BILIRUBIN 2021-11-12 16:09:00 [facility] Results CBC 2021-11-12 16:09:00 Jono [facility] MANUAL DIFFERENTIAL 2021-11-12 16:09:00 [facility] CHEST ABDOMEN PELVIS W 2021-05-14 17:49:00 [facility] CONTRAST UROGRAM [facility] COMPLETE BLOOD COUNT W/ 2021-05-14 12:39:00 Meggan [facility] DIFFERENTIAL [facility] COMPREHENSIVE METABOLIC 2021-05-14 12:39:00 Meggan [facility] PANEL [facility] LACTATE DEHYDROGENASE 2021-05-14 12:39:00 Roman Broderick [facility] VITAMIN B12 LEVEL 2021-05-14 12:39:00 [facility] PROSTATE SPECIFIC ANTIGEN 2021-05-14 12:39:00 Roman Broderick [facility] Results CBC 2021-05-14 12:39:00 Jono [facility] MANUAL DIFFERENTIAL 2021-05-14 12:39:00 [facility] GLUCOSE LEVEL 2021-05-14 12:39:00 Jono [facility] BLOOD UREA NITROGEN 2021-05-14 12:39:00 [facility] ELECTROLYTE PANEL 2021-05-14 12:39:00 Jono [facility] SERUM CREATININE 2021-05-14 12:39:00 Jono [facility] .GLOMERULAR FILTRATION 2021-05-14 12:39:00 [facility] RATE [facility] [place] CALCIUM LEVEL TOTAL 2021-05-14 12:39:00 [facility] [place] ALBUMIN LEVEL 2021-05-14 12:39:00 Jono Feliciano [employer] o f [facility] ALKALINE PHOSPHATASE 2021-05-14 12:39:00 Feliciano Chavarria [facility] ity [facility] ALANINE AMINOTRANSFERASE 2021-05-14 12:39:00 Feliciano Chavarria Uni versity [facility] [place] ASPARTATE AMINOTRANSFERASE 2021-05-14 12:39:00 [facility]o [facility] [place] TOTAL PROTEIN 2021-05-14 12:39:00 Jono [facility] o f [facility] FRACTIONATED BILIRUBIN 2021-05-14 12:39:00 Feliciano Chavarria [facility] Plan of Care Planned Activity Planned Date Details Comments Source Future Scheduled 2022-03-14 COVID-19 University of Test 10:58:35 Vaccination (3 - [place] MD Val butler Booster for Pfizer Cancer Ce nter series) [code = COVID-19 Vaccination (3 - Booster for Pfizer series)] Future Scheduled 2021-03-29 TETANUS SHOT [facility] ege of Test 09:17:58 (ADULT) [code = Medicine TETANUS SHOT (ADULT)] Future Scheduled 2021-03-29 BMI FOLLOW UP PLAN [facility] of Test 09:17:58 [code = BMI FOLLOW Medicine UP PLAN] Future Scheduled 2021-03-29 Hepatitis C [facility] Tristan ege of Test 09:17:58 screening Medicine (procedure) [code = 642755047] Future Scheduled 2021-03-29 ZOSTER VACCINE (1 [facility] of Test 09:17:58 of 2) [code = Medicine ZOSTER VACCINE (1 of 2)] Future Scheduled 2021-03-29 Pneumococcal 65+ (1 [facility] of Test 09:17:58 of 1 - PPSV23) Medicine [code = Pneumococcal 65+ (1 of 1 - PPSV23)] Future Scheduled 2021-03-29 FLU VACCINE > 6 [facility] Test 09:17:58 MONTHS [code = FLU Medicine VACCINE > 6 MONTHS] Future Scheduled 2021-03-29 MEDICARE IPPE [facility] Col [facility] of Test 09:17:58 (WELCOME TO Medicine MEDICARE) [code = MEDICARE IPPE (WELCOME TO MEDICARE)] Future Scheduled 2021-03-29 FALL SCREEN [code = [employer] [facility] Test 09:17:58 FALL SCREEN] Medicine Future Scheduled 2021-03-14 TETANUS SHOT [facility] Tristan ege of Test 16:57:07 (ADULT) [code = Medicine TETANUS SHOT (ADULT)] Future Scheduled 2021-03-14 BMI FOLLOW UP PLAN [employer] [facility] Test 16:57:07 [code = BMI FOLLOW Medicine UP PLAN] Future Scheduled 2021-03-14 Hepatitis C [facility] Tristan ege of Test 16:57:07 screening Medicine (procedure) [code = 222333584] Future Scheduled 2021-03-14 ZOSTER VACCINE (1 [facility] of Test 16:57:07 of 2) [code = Medicine ZOSTER VACCINE (1 of 2)] Future Scheduled 2021-03-14 Pneumococcal 65+ (1 [employer] Test 16:57:07 of 1 - PPSV23) Medicine [code = Pneumococcal 65+ (1 of 1 - PPSV23)] Future Scheduled 2021-03-14 FLU VACCINE > 6 [employer] [facility] 16:57:07 MONTHS [code = FLU Medicine VACCINE > 6 MONTHS] Future Scheduled 2021-03-14 MEDICARE IPPE [facility] Test 16:57:07 (WELCOME TO Medicine MEDICARE) [code = MEDICARE IPPE (WELCOME TO MEDICARE)] Future Scheduled 2021-03-14 FALL SCREEN [code = [employer] Test 16:57:07 FALL SCREEN] Medicine Future Scheduled 2021-03-14 US SCROTUM AND 1 Occurrences [facility] C [facility] of Test 14:21:22 TESTICLES [code = starting Medicine 52657-1] 03/14/2021 until 09/11/2021 Encounters Start End Encounter Admission Attending Care Care Encounter Source Date/Time Date/Time Type Type Clinicians Facility Department ID 2021-03-14 Outpatient DOROTHY LERNER [facility] [id number] Common 12:58:34 ARTURO 12695 [facility] 2021-03-14 [facility] [id number] Common 12:52:10 ARTURO 40371 [facility] 2021-03-14 [facility] [id number] Common 12:25:23 ARTURO 45843 [facility] 2021-03-14 Outpatient DOROTHY LERNER [facility] [id number] Common 11:18:48 ARTURO 80060 [facility] 2020-11-25 Inpatient GARCIA, SLE Surgery [id number] SLEH 00:58:55 CRUZ 2020-06-20 Outpatient SYSTEM, ALIRIO AMEZQUITA [id number] 16:21:49 PROVIDER Hemant vela 2020-04-10 Outpatient SYSTEM, ALIRIO AMEZQUITA [id number] 07:37:46 PROVIDER Hemant vela 2020-03-23 Outpatient JONO, [facility] Urology [id number] 07:55:03 FELICIANO vela 2020-03-01 Outpatient SYSTEM, ALIRIO AMEZQUITA [id number] 08:49:33 PROVIDER Hemant vela 2021-11-14 2021-11-14 Outpatient SANDRINE CHAVARRIA MDA MDA [id number] 13:27:46 13:27:46 FELICIANO vela 2021-11-13 2021-11-13 Telemedici [facility], 1.2.840.1 [id number] [facility] 10:00:00 10:30:00 ne Feliciano 62138.1.1 ity of 3.412.2.7 [place] .3.277657 .8 Lakeshia vela [facility] 2021-11-12 2021-11-12 Hospital Jono, 1.2.840.1 [id number] Univers 10:46:26 23:59:00 Encounter Feliciano 35083.1.1 it y of 3.412.2.7 [place] .3.953525 .8 Lakeshia vela [facility] 2021-11-12 2021-11-12 [facility] [place] [id number] 10:46:26 23:59:00 FELICIANO vela 2021-11-12 2021-11-12 Ancillary Jono, 1.2.840.1 [id number] [facility] 13:00:00 15:50:00 Procedure Feliciano 93330.1.1 it y of 3.412.2.7 [place] .3.553804 MD Tenorio8 [facility] 2021-11-12 2021-11-12 Outpatient SANDRINE CHAVARRIA [facility] [id number] 12:38:19 12:38:19 FELICIANO hernandez mirian 2021-11-12 2021-11-12 Travel 1.2.840.1 1.2.984.362 [id number] [facility] 00:00:00 00:00:00 70074.1.1 350.1.13.41 ity of 3.412.2.7 [place].3.698 [place].5801[place] 084.8 MD Tenorio8 [facility] 2021-05-24 2021-05-24 Office Patrick, 1.2.840.1 [id number] [facility] 10:00:00 10:38:22 Visit Philly 85480.1.1 ity of 3.412.2.7 [place] .3.031172 MD Tenorio8 [facility] 2021-05-24 2021-05-24 Outpatient SANDRINE QUESADAANALIRIO [facility] [id number] MD 09:29:01 10:38:22 PHILLY vela 2021-05-24 2021-05-24 Telephone Darius, 1.2.840.1 [id number] Univers 00:00:00 00:00:00 Nathaly Pacheco 11657.1.1 ity of 3.412.2.7 [place] .3.983750 MD Han [facility] 2021-05-24 2021-05-24 Travel 1.2.840.1 1.2.304.518 [id number] Univers 00:00:00 00:00:00 13258.1.1 350.1.13.41 ity of 3.412.2.7 [place]7.3.698 [place] .3.872001 084.8 MD Han [facility] 2021-05-15 2021-05-15 Office [facility], 1.2.840.1 [id number] [facility] 10:00:00 12:21:14 Visit Feliciano 16356.1.1 ity of 3.412.2.7 [place] .3.636679 MD Tenorio8 [facility] 2021-05-15 2021-05-15 Outpatient [facility] [id number] 09:44:32 12:21:14 [facility] 2021-05-15 2021-05-15 Travel 1.2.840.1 1.2.275.095 [id number] [facility] 00:00:00 00:00:00 74948.1.1 350.1.13.41 ity of 3.412.2.7 [place].3.698 [place] .3.483099 084.8 .8 [facility] 2021-05-14 2021-05-14 Hospital 1.2.840.1 [id number] [facility] 07:25:56 23:59:00 Encounter 93690.1.1 it y of 3.412.2.7 [place] .3.901042 MD Han [facility] 2021-05-14 2021-05-14 Outpatient [facility] [id number] [place] 07:25:56 23:59:00 Hemantruby vela 2021-05-14 2021-05-14 Ancillary 1.2.840.1 [id number] [facility] 10:10:00 13:00:00 Procedure 52987.1.1 it y of 3.412.2.7 [place] .3.228183 MD Han [facility] 2021-05-14 2021-05-14 Outpatient [facility] [id number] 09:09:41 09:09:41 Hemantruby vela 2021-05-14 2021-05-14 Clinical Godwin, 1.2.840.1 [id number] [facility] 09:00:00 09:00:00 Support Javier 74741.1.1 ity of 3.412.2.7 [place] .3.077501 .8 [facility] 2021-05-14 2021-05-14 Outpatient SANDRINE CONNELLYALIRIO MDA [id number] 08:00:07 08:59:17 JAVIER vela 2021-05-14 2021-05-14 Travel 1.2.840.1 1.2.671.427 [id number] [facility] 00:00:00 00:00:00 60269.1.1 350.1.13.41 ity of 3.412.2.7 [place]7.3.698 [place] .3.988574 084.8 .8 Hemant mirian [facility] 2021-03-28 2021-03-28 Office LENNOX Reynolds 1.2.840.114 [id number] [facility] 13:30:00 18:03:30 Visit Rosendo I AMBULATOR 350.1.13.21 College Y 0.2.7.2.686 of [id number] Medi eddie 300 e 2021-03-28 2021-03-28 Outpatient [facility] [id number] [facility] 12:32:07 15:56:01 Pallavi 2021-03-14 2021-03-14 Office LENNOX REYNOLDS 1.2.840.114 [id number] [facility] 12:54:32 14:54:19 Visit ROSENDO AMBULATOR 350.1.13.21 College Y 0.2.7.2.686 of 659.3825010 Medi eddie 300 e 2020-11-14 2020-11-14 Outpatient SANDRINE CHAVARRIA MDA MDA [id number] 09:37:56 10:41:22 FELICIANO vela 2020-11-13 2020-11-13 Outpatient SANDRINE CHAVARRIA MDA MDA [id number] 09:52:02 23:59:00 FELICIANO vela 2020-11-13 2020-11-13 Outpatient SANDRINE CHAVARRIA MDA MDA [id number] 11:46:25 11:46:25 FELICIANO vela 2020-11-13 2020-11-13 Outpatient [facility], MDA MDA [id number] MD 10:29:24 10:29:24 FELICIANO Hemantruby vela 2020-11-13 2020-11-13 Outpatient EL [facility], MDA MDA [id number] MD 08:34:55 09:48:45 JANELLE vela 2020-08-15 2020-08-15 Outpatient EL JONO, MDA MDA [id number] MD 11:37:18 13:47:03 FELICIANO Hemantruby vela 2020-08-11 2020-08-11 Outpatient [facility], MDA MDA [id number] MD 14:19:40 23:59:00 FELICIANO vela 2020-08-11 2020-08-11 Outpatient [facility], MDA MDA [id number] MD 12:08:51 14:18:00 FELICIANO vela 2020-08-11 2020-08-11 Outpatient [facility], MDA MDA [id number] MD 11:30:00 12:07:00 FELICIANO vela 2020-08-04 2020-08-04 Emergency UR SAUCEDA, MDA Emergency [id number] MD 13:48:00 17:34:00 ALFONSO vela 2020-07-07 2020-07-07 Outpatient [facility], MDA MDA [id number] MD 13:09:10 13:09:10 FELICIANO vela 2020-07-04 2020-07-04 Outpatient EL ROD III, MDA MDA [id number] MD 11:49:07 11:49:07 DARIUS vela 2020-07-04 2020-07-04 Outpatient [facility], MDA MDA [id number] MD 09:59:21 11:02:40 FELICIANO vela 2020-07-04 2020-07-04 [facility] MDA [id number] MD 08:40:20 09:37:12 FELICIANO vela 2020-07-03 2020-07-03 Outpatient [facility], MDA MDA [id number] MD 10:51:52 23:59:00 FELICIANO vela 2020-07-03 2020-07-03 Outpatient EL ROD III, MDA MDA [id number] 13:01:36 15:27:04 DARIUS vela 2020-07-03 2020-07-03 Outpatient EL JONO, MDA MDA [id number] 09:09:09 10:50:00 FELICIANO Marcos o mirian 2020-07-03 2020-07-03 Outpatient EL JONO, MDA MDA [id number] 09:08:52 09:08:52 FELICIANO Marcos o mirian 2020-06-21 2020-06-21 Outpatient EL JONO, MDA MDA [id number] MD 10:48:10 10:48:10 FELICIANO Marcos o mirian 2020-06-06 2020-06-06 Outpatient EL JONO, MDA MDA [id number] 11:03:43 11:03:43 FELICIANO vela 2020-05-19 2020-05-31 Inpatient EL JONO, MDA Urology [id number] 05:11:00 14:16:00 FELICIANO vela 2020-05-31 2020-05-31 Inpatient EL MANTARING, MDA MDA [id number] MD 08:15:30 08:52:37 MARTA Marcos o mirian 2020-05-25 2020-05-25 Inpatient EL JONO, MDA MDA [id number] MD 10:27:30 13:26:44 FELICIANO vela 2020-05-23 2020-05-23 Inpatient EL JONO, MDA MDA [id number] MD 20:59:02 21:01:01 FELICIANO vela 2020-05-18 2020-05-18 Outpatient JONO, MDA MDA [id number] MD 07:56:48 07:56:48 FELICIANO Marcos o mirian 2020-05-17 2020-05-17 Outpatient [facility], MDA MDA [id number] MD 07:56:41 23:59:00 ANA vela 2020-05-17 2020-05-17 Outpatient EL JONO, MDA MDA [id number] 08:51:10 09:56:46 FELICIANO Marcos o mirian 2020-05-17 2020-05-17 Outpatient EL JONO, MDA MDA [id number] 07:37:52 08:04:30 FELICIANO Gomezers o n 2020-05-15 2020-05-15 Outpatient ROD III, MDA MDA [id number] 12:48:47 15:11:39 DARIUS Hemant o n 2020-05-06 2020-05-06 Outpatient JONO, MDA MDA [id number] MD 09:44:55 09:44:55 FELICIANO Gomezers o n 2020-04-26 2020-04-26 Outpatient [facility], MDA MDA [id number] MD 10:16:02 23:59:00 URIEL Gomezers o n 2020-04-26 2020-04-26 Outpatient [facility], MDA MDA [id number] MD 09:39:38 10:30:23 URIEL Gomezers o n 2020-04-26 2020-04-26 Outpatient [facility], MDA MDA [id number] 08:24:08 10:15:00 FELICIANO Gomezers o n 2020-04-25 2020-04-25 Outpatient [facility], MDA MDA [id number] MD 06:07:58 23:59:00 FELICIANO Gomezers o n 2020-04-25 2020-04-25 Outpatient [facility], MDA MDA [id number] MD 11:08:32 14:19:14 FELICIANO Gomezers o n 2020-04-25 2020-04-25 Outpatient [facility], MDA MDA [id number] MD 11:43:12 11:43:12 FELICIANO Gomezers o n 2020-04-25 2020-04-25 Outpatient [facility], MDA MDA [id number] MD 08:08:11 11:24:33 FELICIANO Gomezers o n 2020-04-21 2020-04-21 Outpatient [facility] MDA MDA [id number] MD 06:25:00 23:59:00 Hemant LUA 2020-04-14 2020-04-14 Outpatient [facility], MDA MDA [id number] MD 11:31:34 11:56:38 CHAVO Gomezers o mirian 2020-04-10 2020-04-10 Outpatient [facility], MDA MDA [id number] 11:15:00 23:59:00 FELICIANO Marcos david vela 2020-04-10 2020-04-10 Outpatient [facility], MDA MDA [id number] MD 11:50:27 17:31:07 FELICIANO hernandez n 2020-04-10 2020-04-10 Outpatient [facility], MDA MDA [id number] MD 11:47:49 17:31:01 FELICIANO Marcos o n 2020-03-31 2020-03-31 [facility] MDA MDA [id number] MD 06:46:35 06:46:35 EFE Marcos o n 2020-03-29 2020-03-29 (TEL) STLMLC STLC [id number] Co mmon 00:00:00 00:00:00 [facility] 2020-03-28 2020-03-28 Outpatient [facility], MDA MDA [id number] MD 15:11:40 23:59:00 FELICIANO Marcos o n 2020-03-28 2020-03-28 Outpatient [facility], MDA MDA [id number] 07:07:59 15:10:00 FELICIANO Marcos o n 2020-03-28 2020-03-28 Outpatient [facility], MDA MDA [id number] 07:26:46 13:33:44 FELICIANO Marcos o n 2020-03-28 2020-03-28 Outpatient [facility], MDA MDA [id number] MD 12:06:37 13:19:54 FELICIANO Marcos o n 2020-03-28 2020-03-28 [facility] MDA MDA [id number] MD 10:08:53 11:16:05 EFE Marcos o n 2020-03-28 2020-03-28 Outpatient [facility], MDA MDA [id number] MD 09:43:26 10:02:14 FELICIANO Gomezers o n 2020-03-28 2020-03-28 Outpatient [facility], MDA MDA [id number] MD 07:52:52 07:52:52 FELICIANO Gomezers o n 2020-03-28 2020-03-28 Outpatient [facility], MDA MDA [id number] MD 07:52:47 07:52:47 FELICIANO Marcos o n 2020-03-28 2020-03-28 Outpatient EL JONO, MDA MDA [id number] 07:52:44 07:52:44 FELICIANO Marcos david n 2020-03-28 2020-03-28 Outpatient SANDRINE CHAVARRIA MDA MDA [id number] 07:01:12 07:06:28 FELICIANO Marcos david n 2020-03-26 2020-03-26 Outpatient SANDRINE CHAVARRIA MDA MDA [id number] 13:42:50 14:24:35 FELICIANO hernandez mirian 2020-03-14 2020-03-14 (TEL) STLMLC STLMLC [id number] Co mmon 00:00:00 00:00:00 [facility] 2020-03-08 2020-03-08 OFFICE STLMLC STLMLC [id number] Co mmon 00:00:00 00:00:00 VISIT [facility] PT - CHI LEVEL 5 [facility] 2020-03-02 2020-03-02 NON-BILLAB STLMLC STLMLC [id number] Common 00:00:00 00:00:00 LE VISIT [facility] 2020-02-29 2020-02-29 (TEL) STLMLC STLMLC [id number] Co mmon 00:00:00 00:00:00 [facility] 2020-02-29 2020-02-29 NON-BILLAB STLMLC STLMLC [id number] Common 00:00:00 00:00:00 LE VISIT [facility] 2020-02-23 2020-02-23 (TEL) STLMLC STLMLC [id number] Co mmon 00:00:00 00:00:00 [facility] 2020-02-08 2020-02-08 (TEL) STLMLC STLMLC [id number] Co mmon 00:00:00 00:00:00 [facility] 2020-02-07 2020-02-07 OFFICE STLMLC STLMLC [id number] Co mmon 00:00:00 00:00:00 VISIT [facility] PT - CHI LEVEL 5 [facility] 2020-02-02 2020-02-02 NON-BILLAB STLMLC STLMLC [id number] Common 00:00:00 00:00:00 LE VISIT Spiri t - [facility] 2020-01-07 2020-01-07 (TEL) STLMLC STLMLC [id number] Co mmon 00:00:00 00:00:00 [facility] 2020-01-06 2020-01-06 OFFICE STLMLC STLMLC [id number] Co mmon 00:00:00 00:00:00 VISIT NEW Spir it PT LEVEL 3 - [facility] 2019-12-28 2019-12-28 (TEL) STLMLC STLMLC [id number] Co mmon 00:00:00 00:00:00 [facility] 2019-12-22 2019-12-22 (TELEAUD) STLMLC STLMLC [id number] Common 00:00:00 00:00:00 AUDIO [facility] TELEMEDICI - [facility] 2019-11-30 2019-11-30 (TEL) STLMLC STLMLC [id number] Co mmon 00:00:00 00:00:00 [facility] 2019-11-15 2019-11-15 (TEL) STLMLC STLMLC [id number] Co mmon 00:00:00 00:00:00 [facility] 2019-11-02 2019-11-02 Outpatient Danilo Carrascot [id number] Common 16:19:00 16:19:00 t Specialty/U Sp leydi Specialty rology - CHI /Urology Clinic [facility] 2019-10-29 2019-10-29 Outpatient [facility] [id number] Common 08:15:00 08:15:00 t Specialty/U Sp leydi Specialty rology - CHI /[facility]rology Clinic [facility] 2019-10-12 2019-10-12 Outpatient [facility] [id number] Common 16:13:00 16:13:00 t Specialty/U Sp leydi Specialty rology - CHI /Urology Clinic [facility] 2019-10-11 2019-10-11 Outpatient [facility]ilo [facility] [id number] Common 12:50:00 12:50:00 t Specialty/U Sp leydi Specialty rology - CHI /[facility]rology Clinic [facility] 2019-10-05 2019-10-05 Outpatient Danilo [facility] [id number] Common 10:45:00 10:45:00 t Specialty/U Sp leydi Specialty rology - CHI /[facility]rology Clinic [facility] 2019-09-29 2019-09-29 Outpatient [place] [id number] Common 14:15:00 14:15:00 t Specialty/U Sp leydi Specialty rology - CHI /[facility] Clinic [facility] 2019-09-20 2019-09-20 Outpatient [place] [facility] [id number] Common 15:50:00 15:50:00 t Specialty/U Sp leydi Specialty rology - CHI /[facility]rology Clinic [facility] 2019-09-15 2019-09-15 Outpatient Danilo [facility] [id number] Common 15:56:00 15:56:00 t Specialty/U Sp leydi Specialty rology - CHI /[facility]rology Clinic [facility] 2019-08-16 2019-08-16 Outpatient Danilo [facility] [id number] Common 08:45:00 08:45:00 t Specialty/U Sp leydi Specialty rology - CHI /[facility]rology Clinic [facility] 2019-07-22 2019-07-22 Outpatient [place] [facility] [id number] Common 08:30:00 08:30:00 t Specialty/U Sp leydi Specialty rology - [facility] 2019-06-10 2019-06-10 Outpatient Wilderalicia [place] 30 [id number] Common 08:30:00 08:30:00 t Specialty/U Sp leydi Specialty rology - [facility] 2019-06-08 2019-06-08 Outpatient Wilderospor [place] 30 [id number] Common 10:23:00 10:23:00 t Specialty/U Sp leydi Specialty rology - [facility] Results Test Description Test Time Test Comments Results Result Comments Source Vitamin B12 Level 2021-11-12 17:21:01 Test Item Value Reference Range Interpretation Comme nts Vitamin B12 Lvl (test code = 2132-9) 394 pg/mL [id number] LANEY (test code = LANEY) Get labs and scans day before starting at 11am, and f/u next day in clinic at 11 am. [facility] 17:07[facility]00 Test Item Value Reference Range Interpretation Comments PSA (test code = 0.0-4.0 Results gre ater than 2857-1) 4519 ng/mL may not be reliable due to matrix effect with ext ended dilution as it exceeds the manufacture r's recommended forman it. Caution should be exercised when interpreting guzman ch values and done in conjunction wit h clinical context.Testing Performed at [facility] [employer] [facility], [address], [place] [address] PSA Indication (test Diagnostic code = 26115-2) [facility] America[facility]raction[facility] [id number] 16:54:16 Test Item Value Reference Range Interpretation Comments Bili Total (test 0.8 mg/dL <=1.2 Indocyanine Green code = 1974-) (ICG) may cau se falsely elevate d bilirubin resul ts. Total and direc t bilirubin must not be measured from s amples containing indo cyanine green. False el evation of total biliru bin can be seen in heidi ents with IgG concentrations above 28 g/L.Testing Performed at [facility], [address], [address], [place] [address] Bili Direct 0.2 mg/dL <=0.3 Indocyanine Gre en (test code = (ICG) may cause 1967-08) falsely elevate d bilirubin resul ts. Total and direc t bilirubin must not be measured from s amples containing indo cyanine green. Testing Performed at [facility], [address], [address], [place] [address] Bili Indirect 0.6 mg/dL 0.0-0.9 Testing Perfor med at (test code = [facility] Lab Ambulat ory 1970-02) Care [facility], [address], [address], [place] [address] LNAEY (test code = Get labs and LANEY) scans day before starting at 11am, and f/u next day in clinic at 11 am. [facility] AmericaGlomerular Filtration Rate 2021-11-12 16:54:15 Test Item Value Reference Range Interpretation Comments eGFR-AA (test 101 See_Comment Normal eGFR >= 60 code = mL/min/1.73 m2 Note: 79332-8) The eGFR is krishna culated using the CKD-E PI equation. The e GFR declines with a ge. eGFR <60 mL/min/1.73 m2 is considered as "decreased". Th is equation should only be used for patien ts 18 and older. Acco rding to the National dney Foundation's dney Disease Outcome Quality Initiative (KDO QI) classification and 2012 Kidney Disease Improving Globa l Outcomes (KDIGO ) Clinical Practi ce Guideline, the stage of CKD should be categorized bas ed on estimated GFR. Stage Description GFR mL/min/1.73 m21 Normal or high GFR >=9 02 Mildly decrease d GFR 60-893a Mildly to moderately decr eased GFR 45-593b Mod erately to severely dec reased GFR 30-444 Rosey rely decreased GFR 1 5-295 Kidney failure <15 Testing Perform ed at [facility] Lab Ambulat [facility], [address], [address], [place], [place] [address] [Automated mess age] The system which ge nerated this result tra nsmitted reference range : >=60 mL/min/1.73 sq. m. The reference range was not used to interpr et this result as normal/abnormal . eGFR-BARBY (test 87 See_Comment Normal eGFR > = 60 code = mL/min/1.73 m2 Note: 63853-7) The eGFR is krishna culated using the CKD-E PI equation. The e GFR declines with a ge. eGFR <60 mL/min/1.73 m2 is considered as "decreased". Th is equation should only be used for patien ts 18 and older. Acco rding to the National dney Foundation's dney Disease Outcome Quality Initiative (KDO QI) classification and 2012 Kidney Disease Improving Globa l Outcomes (KDIGO ) Clinical Practi ce Guideline, the stage of CKD should be categorized bas ed on estimated GFR. Stage Description GFR mL/min/1.73 m21 Normal or high GFR >= 902 Mildly decrease d GFR 60-893a Mildly to moderately decr eased GFR 45-593b Mod erately to severely dec reased GFR 30-444 Rosey rely decreased GFR 1 5-295 Kidney failure <15 Testing Perform ed at [facility], [address], [address], [place], [place] [address] [Automated mess age] The system which ge nerated this result tra nsmitted reference range : >=60 mL/min/1.73 sq. m. The reference range was not used to interpr et this result as normal/abnormal . LANEY (test code Get labs and = LANEY) scans day before starting at 11am, and f/u next day in clinic at 11 am. [facility] AmericaTotal [id number] 16:54:14 Test Item Value Reference Range Interpretation Comments Total Protein 7.5 g/dL 6.4-8.3 Testing Perfor med (test code = at [facility] Lab 2885-2) [facility], [address] [place] [address], [address], [place], [place] [address] LANEY (test code = Get labs and scans LANEY) day before starting at 11am, and f/u next day in clinic at 11 am. [facility] AmericaCalcium [id number] 16:54:13 Test Item Value Reference Range Interpretation Comments Calcium Lvl (test 9.5 mg/dL 8.4-10.2 Testing Pe rformed code = 94162-4) at [facility] Lab [facility], [address] [place] [address], [address], [place] [address] LANEY (test code = Get labs and scans LANEY) day before starting at 11am, and f/u next day in clinic at 11 am. [facility] AmericaAlkaline [id number] 16:54:12 Test Item Value Reference Range Interpretation Comments Alk Phos (test 88 U/L 40-129 Testing Perfo rmed at code = 6768-6) [facility], [address] [place] [address], [address], [place] [address] LANEY (test code Get labs and scans = LANEY) day before starting at 11am, and f/u next day in clinic at 11 am. [facility] AmericaAlbumin [id number] 16:54:11 Test Item Value Reference Range Interpretation Comments Albumin Lvl (test 4.7 See_Comment Testing Pe rformed at code = 1751-7) [facility] Lab Ambul [facility], [address] [place] [address], [address], [place] [address] [Automate d message] The sy stem which generated this result transmit antonio reference range : 3.5 - 5.2 gm/dL. Th e reference range was not used to interpret this result as normal/abnormal . LANEY (test code = Get labs and LANEY) scans day before starting at 11am, and f/u next day in clinic at 11 am. [facility] AmericaAspartate Aminotransferase 2021-11-12 16:54:10 Test Item Value Reference Range Interpretation Comments AST (test code = 54 U/L <=40 H Testing Per formed 1920-8) at [facility], [address] [place] [address], [address], [place] [address] LANEY (test code = LANEY) Get labs and scans day before starting at 11am, and f/u next day in clinic at 11 am. Lab Interpretation Abnormal (test code = 10913-3) [facility] AmericaALT2022-09-26 16:54:09 Test Item Value Reference Range Interpretation Comments ALT (test code = 74 U/L <=41 H Testing Per formed 1742-6) at [facility], [address] [place] [address], [address], [place] [address] LANEY (test code = LANEY) Get labs and scans day before starting at 11am, and f/u next day in clinic at 11 am. Lab Interpretation Abnormal (test code = 69454-9) [facility] AmericaElectrolyte [id number] 16:54:08 Test Item Value Reference Range Interpretation Comments Sodium Lvl (test 141 See_Comment Testing Per formed code = 2951-2) at [facility], [address] [place] [address], [address], [place] [address] [Automated mess age] The system whic h generated this result transmit antonio reference range : 136 - 145 mEq/L . The reference r cuco was not used to interpret this result as normal/abnormal . Potassium Lvl 4.2 See_Comment Testing Perfor med (test code = at [facility] Lab 2823-3) [facility], [facility] [facility] [facility], [address], [place], [place] [address] [Automated mess age] The system [employer] generated this result transmit antonio reference range : 3.5 - 5.1 mEq/L . The reference r cuco was not used to interpret this result as normal/abnormal . Chloride (test 106 See_Comment Testing Perfo rmed code = 2075-0) at [facility], [address], [address], [place], [place] [address] [Automated mess age] The system [employer] generated this result transmit antonio reference range : 98 - 107 mEq/L. Th e reference range was not used to interpret this result as normal/abnormal . CO2 (test code = 27 See_Comment Testing Per formed 2027-10) at [facility], [facility] [facility], [address], [place], [place] [address] [Automated mess age] The system [employer] generated this result transmit antonio reference range : 22 - 29 mEq/L. The reference range was not used to interpret this result as normal/abnormal . Anion Gap (test 8 See_Comment Testing Perf ormed code = 11010-5) at [facility], [facility] [facility], [address], [place], [place] [address] [Automated mess age] The system [employer] generated this result transmit antonio reference range : 4 - 14 mEq/L. The reference range was not used to interpret this result as normal/abnormal . LANEY (test code = Get labs and LANEY) scans day before starting at 11am, and f/u next day in clinic at 11 am. [facility].Serum [id number] 16:54:07 Test Item Value Reference Range Interpretation Comments Creatinine (test 0.78 mg/dL 0.67-1.17 Testing Per formed code = 2160-0) at [facility], [address] [facility], [address], [place] [address] LANEY (test code = Get labs and LANEY) scans day before starting at 11am, and f/u next day in clinic at 11 am. [facility] AmericaBUN2022-09-26 16:54:06 Test Item Value Reference Range Interpretation Comments BUN (test code 13 mg/dL 6-23 Testing Perfo rmed at = 3094-0) [facility] Lab Ambulat ory Care [facility], [address], [place] [address] LANEY (test code Get labs and scans = LANEY) day before starting at 11am, and f/u next day in clinic at 11 am. [facility] AmericaGlucose [id number] 16:54:05 Test Item Value Reference Range Interpretation Comments Glucose Level (test 118 mg/dL 70-99 H Effectiv e 09/13/15, code = 2345-7) the glucose reference intervals have been updated ba sed on [place] Diabetes Association guidelines (Standards of Medical Care in Diabetes 2016. Diabetes Care 2016; 39: S13-S22).Fastin g blood glucose:Normal: 70-99 mg/dLImpaired fasting glucose (increased risk for diabetes or pre-diabetes): 100-125 mg/dLDiabetes mellitus: >/=12 6 mg/dL Random bl ood glucose:Normal: 70-199 mg/dLNot e: Random glucose >100 mg/dL is associated with increased risk for diabetes Testin g Performed at [facility], [address] [facility], [address], [place] [address] LANEY (test code = LANEY) Get labs and scans day before starting at 11am, and f/u next day in clinic at 11 am. Lab Interpretation Abnormal (test code = 24669-2) [facility] AmericaDifferential2022-09-26 16:28:16 Test Item Value Reference Range Interpretation Comments Neutrophil % (test 61.6 % 42.0-66.0 As part o f code = 770-8) Differential performed at [facility] Care [facility], [address] [facility], [address], [place] [address] Lymphocyte % (test 22.2 % 24.0-44.0 L code = 736-9) Monocyte % (test code 10.0 % 2.0-7.0 H = 5905-5) Eosinophil % (test 4.6 % 1.0-4.0 H code = 713-8) Basophil % (test code 1.2 % 0.0-1.0 H = 706-2) IGRE % (test code = 0.4 % 0.0-0.4 IGRE % c ount 63561-2) includes Metamyelocytes, Myelocytes, and Promyelocytes. As part of Differential performed at [facility], [address] [place] [address], [address], [place] [address] Neutrophil Abs (test 3.52 K/uL 1.70-7.30 code = 751-8) Lymphocyte Abs (test 1.27 K/uL 1.00-4.80 code = 731-0) Monocyte Abs (test 0.57 K/uL 0.08-0.70 code = 742-7) Eosinophil Abs (test 0.26 K/uL 0.04-0.40 code = 711-2) Basophil Abs (test 0.07 K/uL 0.00-0.10 code = 704-7) IG Abs (test code = 0.02 K/uL 0.00-0.04 65071-9) LANEY (test code = LANEY) Get labs and scans day before starting at 11am, and f/u next day in clinic at 11 am. Lab Interpretation Abnormal (test code = 31618-9) [facility] Roll[place].[id number] 16:28:11 Test Item Value Reference Range Interpretation Comments WBC (test code = 5.7 K/uL 4.0-11.0 6690-2) RBC (test code = 4.72 See_Comment [Automated 789-8) message] The sy stem which generated this result transmitted reference range : 4.50 - 6.00 M/u L. The reference r cuco was not used to interpret this result as normal/abnormal . Hgb (test code = 12.6 See_Comment L As part of CBC or 718-7) as an individua l orderable testi ng performed at [facility], [address], [address], [place], [place] [address] [Automated mess age] The system whic h generated this result transmit antonio reference range : 14.0 - 18.0 gm/ dL. The reference r cuco was not used to interpret this result as normal/abnormal . Hct (test code = 40.9 % 40.0-54.0 As part of CBC or 4544-3) as an individua l orderable testi ng performed at [facility], [address], [address], [place] [address] MCV (test code = 87 fL 82-98 787-2) MCH (test code = 26.7 pg 27.0-31.0 L 785-6) MCHC (test code = 30.8 See_Comment L [Automate d 786-4) message] The sy stem which generated this result transmitted reference range : 31.0 - 36.0 gm/ dL. The reference r cuco was not used to interpret this result as normal/abnormal . RDW-SD (test code = 46.5 fL 35.1-46.3 H 29436-1) RDW-CV (test code = 14.6 % 12.0-15.5 788-0) Platelet count (test 205 K/uL 140-440 As part of CBC or code = 777-3) as an individu al orderable testi ng performed at [facility] B[facility], [address], [address], [place] [address] MPV (test code = 10.9 fL 4.0-10.4 H 32438-8) INRBC (test code = 0.0 % <=0.0 The INRBC 09536-3) (instrument NRB C) value reflects the enumerationof nucleated red b lood cells contained in a 200uL sampleo f whole blood analyzed by the instrument. Thi s value maydiffer from the NRBC v alue reported in a manual differential,wh ich is based on a 1 00 cell differenti al. As part of CBC testing perform ed at [facility] [id number] [facility], [address], [place] [address] LANEY (test code = LANEY) Get labs and scans day before starting at 11am, and f/u next day in clinic at 11 am. Lab Interpretation Abnormal (test code = 85671-6) [facility] [id number] 14:47:59 Test Item Value Reference Range Interpretation Comments LDH (test code = 227 U/L 135-225 H Results gre ater than 72311-3) 1651 U/L may no t be reliable due to matrix effect w ith extended diluti on as it exceeds the residential sales consultant's recommended forman it. Caution should be exercised when interpreting guzman ch values and done in conjunction wit h clinical contex t. Lab Interpretation (test Abnormal code = 50935-4) [facility] [place]
[2022-04-30 17:48] LABS: Urine Blood Trace-intact (Negative); Urine Glucose Negative (Negative); Urine Protein 1+ (Negative); Urine Specific Gravity 1.015 (1.005-1.030); Urine pH 8.5 (5.0-7.0)
[2022-04-30 17:52] LABS: Absolute Lymphocytes (CBC) 1.6 K/uL (0.7-4.9); Hematocrit 35.7 % (39.6-49.0); Lymphocytes % 21.2 % (15.3-44.8); MCV 84.2 fL (80-100); MPV 9.5 fL (7.6-11.3); RBC Red Blood Cell Count 4.24 M/uL (4.33-5.43)
[2022-04-30 17:55] LABS: Protime INR 1.05
[2022-04-30 18:09] LABS: Albumin 3.7 g/dL (3.4-5.0); Bilirubin Direct 0.1 mg/dL (0-0.2); Bilirubin Total 0.6 mg/dL (0.2-1.0); Potassium 4.2 mmol/L (3.5-5.1); Troponin High Sensitivity 3.3 pg/mL (<58.9)
[2022-04-30] MEDS ORDERED: NA CHLORIDE 0.9% 1,000 ML ONE ×2 (18:25→22:07)
--- NOTE | 2022-04-30 19:14 | RAD REPORT ---
EXAM DESCRIPTION: CT - Abdomen Pelvis W Contrast - 04/30/2022 6:43 pm CLINICAL HISTORY: Abdominal pain COMPARISON: 2019 TECHNIQUE: Computed axial tomography of the abdomen pelvis was obtained. 100 cc Isovue-300 was admin istered intravenously. Oral contrast was not requested which limits evaluation of bowel and appendix All CT scans are performed using dose optimization technique as appropriate and may include automated exposure control or mA/KV adjustment according to patient size. FINDINGS: Mild fatty liver Spleen, pancreas, and adrenals appear unremarkable. Small renal cysts. No hydronephrosis. Cystectomy with ileal conduit No evidence of diverticulitis. Infrarenal abdominal aorta AP diameter 3.1 centimeters Small left and small to moderate right inguinal hernias contain fat IMPRESSION: 3.1 centimeter abdominal aortic aneurysm No acute abnormality is displayed
--- NOTE | 2022-04-30 19:53 | ER ---
Nurse's Notes [facility] Name: Ulices Garcia Age: 76 yrs Sex: Male : 1945 Arrival Date: 04/30/2022 Time: 17:07 Bed 4 Private MD: Iliana Marin Diagnosis: GI Bleed/ Gastrointestinal hemorrhage, unspecified Presentation: 04/30 17:10 Chief complaint: Seen at Dr. Rincon's office today, instructed to come to ED for high hb heart rate, dizziness, and bright red rectal bleeding that started this afternoon. Had colonoscopy last week with several polyps removed. Coronavirus screen: At this time, the client does not indicate any symptoms associated with coronavirus-19. Ebola Screen: No symptoms or risks identified at this time. Initial Sepsis Screen: Does the patient meet any 2 criteria? No. Patient's initial sepsis screen is negative. Does the patient have a suspected source of infection? No. Patient's initial sepsis screen is negative. Risk Assessment: Do you want to hurt yourself or someone else? Patient reports no desire to harm self or others. Onset of symptoms was April 30, 2022. 17:10 Method Of Arrival: Ambulatory hb 17:10 Acuity: YAMILA 3 hb Historical: - Allergies: 17:13 No Known Drug Allergies; hb - PMHx: 17:13 dyslipidemia; Hypertension; hb - Immunization history:: Adult Immunizations up to date. - Social history:: Smoking status: Patient/guardian denies using tobacco. Screenin:48 [facility] ED Fall Risk Assessment (Adult) Score/Fall Risk Level 0 - 2 = Low Risk ll1 Oriented to surroundings, Maintained a safe environment, Educated pt \T\ family on fall prevention, incl call for assistance when getting out of bed, Hourly rounding (assess needs \T\ fall precautionary measures) done. Abuse screen: Denies threats or abuse. Nutritional screening: No deficits noted. Tuberculosis screening: No symptoms or risk factors identified. Assessment: 17:48 General: Appears in no apparent distress. comfortable, Behavior is calm, cooperative, ld1 appropriate for age. Pain: Denies pain. Neuro: Level of Consciousness is awake, alert, obeys commands, Oriented to person, place, time, situation, Appropriate for age. Cardiovascular: Capillary refill < 3 seconds Patient's skin is warm and dry. Respiratory: Airway is patent Respiratory effort is even, unlabored. GI: Abdomen is round non-distended, Reports bloody stool, Patient currently denies abdominal pain. : Urine is cloudy, Urostomy to RLQ. EENT: No signs and/or symptoms were reported regarding the EENT system. Derm: No signs and/or symptoms reported regarding the dermatologic system. Musculoskeletal: No signs and/or symptoms reported regarding the musculoskeletal system. 18:09 Reassessment: No changes from previously documented assessment. Patient and/or family ll1 updated on plan of care and expected duration. Pain level reassessed. Patient is alert, oriented x 3, equal unlabored respirations, skin warm/dry/pink. 18:36 Reassessment: No changes from previously documented assessment. to CT via stretcher. ll1 19:15 General: Appears in no apparent distress. comfortable, Behavior is calm, cooperative. lg3 Pain: Denies pain. Neuro: No deficits noted. Turner Agitation-Sedation Scale (RASS): 0 - Alert and Calm Level of Consciousness is awake, alert, obeys commands, Oriented to person, place, time, situation. Cardiovascular: No deficits noted. Denies chest pain. Respiratory: No deficits noted. Airway is patent Respiratory effort is even, unlabored, Respiratory pattern is regular, symmetrical. GI: No deficits noted. Abdomen is round non-distended. : No deficits noted. No signs and/or symptoms were reported regarding the genitourinary system. EENT: No deficits noted. No signs and/or symptoms were reported regarding the EENT system. Derm: No deficits noted. No signs and/or symptoms reported regarding the dermatologic system. Skin is intact, is healthy with good turgor, Skin is dry, Skin is normal, Skin temperature is warm. Musculoskeletal: No deficits noted. No signs and/or symptoms reported regarding the musculoskeletal system. Circulation, motion, and sensation intact. Range of motion: intact in all extremities. 20:28 Reassessment: Patient appears in no apparent distress at this time. No changes from lg3 previously documented assessment. Patient and/or family updated on plan of care and expected duration. Pain level reassessed. Patient is alert, oriented x 3, equal unlabored respirations, skin warm/dry/pink. Patient denies pain at this time. Patient states feeling better. 20:56 General: post discharge, once in [facility], pt wants to now be transferred instead of lg3 discharged and came back into ED. Vital Signs: 17:10 BP 121 / 98; Pulse 111; Resp 18; Temp 97.1; Pulse Ox 100% on R/A; Weight 83.91 kg; hb Height 5 ft. 9 in. ; Pain 0/10; 17:48 BP 120 / 69; Pulse 93; Resp 18; Pulse Ox 96% on R/A; Pain 0/10; ld1 17:59 BP 118 / 69 Supine; Pulse 91; ll1 18:04 BP 107 / 58 Sitting; Pulse 92; ll1 18:06 BP 99 / 65 Standing; Pulse 114; ll1 18:31 BP 99 / 65; Pulse 85; Resp 12; Pulse Ox 99% on R/A; ld1 19:13 BP 123 / 60; Pulse 85; Resp 16; Pulse Ox 99% on R/A; lg3 19:37 BP 145 / 70 Supine; Pulse 82; Resp 14; Pulse Ox 99% ; kd3 19:37 BP 132 / 69 Sitting; Pulse 87; Resp 11; Pulse Ox 100% ; kd3 19:37 BP 153 / 76 Standing; Pulse 101; Resp 12; Pulse Ox 100% on R/A; kd3 17:10 Body Mass Index 27.32 (83.91 kg, 175.26 cm) hb 17:10 Pain Scale: Adult hb 17:48 Pain Scale: Adult ld1 ED Course: 17:07 Patient arrived in ED. mr 17:07 Iliana Marin is Private Physician. mr 17:13 Triage completed. hb 17:13 Arm band placed on. hb 17:14 Sidra Cohen FNP-C is PHCP. kb 17:14 Slick Durand MD is Attending Physician. kb 17:22 Nasima Tobias, LINDA is Primary Nurse. ll1 17:48 No provider procedures requiring assistance completed. Inserted saline lock: 20 gauge ld1 in left antecubital area, using aseptic technique. Blood collected. 17:49 Patient has correct armband on for positive identification. Bed in low position. Call ll1 light in reach. Side rails up X2. Client placed on continuous cardiac and pulse oximetry monitoring. NIBP monitoring applied. chiropractic doctor on. 18:44 CT Abd/Pelvis - IV Contrast Only In Process Unspecified. EDMS 19:15 Family accompanied patient. lg3 20:29 IV discontinued, intact, bleeding controlled, No redness/swelling at site. Pressure lg3 dressing applied. 20:35 Attending Physician role handed off by Slick Durand MD lg3 20:45 Jone Carcamo MD is Attending Physician. sp4 Administered Medications: 18:23 Drug: NS 0.9% IV 1000 ml Route: IV; Rate: 1000 ml; Site: left antecubital; ld1 20:28 Follow up: Response: No adverse reaction; IV Status: Completed infusion; IV Intake: lg3 1000ml Medication: 17:49 VIS not applicable for this client. ll1 Intake: 20:28 IV: 1000ml; Total: 1000ml. lg3 Outcome: 19:53 Discharge ordered by . kb 20:29 Discharged to home ambulatory, with family. lg3 20:29 Condition: stable 20:29 Discharge instructions given to patient, Instructed on discharge instructions, follow up and referral plans. Demonstrated understanding of instructions, follow-up care. 20:29 Patient left the ED. lg3 21:04 ER care complete, transfer ordered by MD. la1 Signatures: Dispatcher [employer] EDMS NoelSidra, APPLICATION PACKAGER-C APPLICATION PACKAGER-Ckb Debbie Castellanos mr Selina Arguello, RN Gilmar Cifuentes, APPLICATION PACKAGER-C APPLICATION PACKAGER-Cla1 Tala Shabazz RN RN hb Gibson, Lacie, RN RN lg3 Nasima Tobias RN RN ll1 Flaca Coleman RN RN ld1 Rochelle Fisher RN RN kd3 Jone Carcamo MD MD sp4 Corrections: (The following items were deleted from the chart) 18:09 18:01 BP 118 / 69; Pulse 95bpm; Pulse Ox 98% RA; ss ll1
--- NOTE | 2022-04-30 19:53 | EDPHYS ---
Physician Documentation [facility] Name: Ulices Garcia Age: 76 yrs Sex: Male : 1945 Arrival Date: 04/30/2022 Time: 17:07 Bed 4 Private MD: Iliana Marin ED Physician Jone Carcamo HPI: 04/30 19:39 This 76 yrs old Male presents to ER via Ambulatory with complaints of Rectal Bleeding. kb 19:39 The patient presents to the emergency department with bleeding from the rectum/anus. kb Onset: The symptoms/episode began/occurred today, at 16:00. Context: the patient is post surgical, Colonoscopy with polyp removal, on April 23, 2022. Modifying factors: The symptoms are alleviated by nothing, The symptoms are aggravated by bowel movement. Associate signs and symptoms: Pertinent positives: lower GI bleeding, bright red. The patient has not experienced similar symptoms in the past. The patient has been recently seen by a physician: IRAJ Rincon's office. Sent to ED for eval. Historical: - Allergies: 17:13 No Known Drug Allergies; hb - PMHx: 17:13 dyslipidemia; Hypertension; hb - Immunization history:: Adult Immunizations up to date. - Social history:: Smoking status: Patient/guardian denies using tobacco. ROS: 19:38 Constitutional: Negative for fever, chills, and weight loss. kb 19:38 Abdomen/GI: Positive for rectal bleeding. 19:38 Neuro: Positive for dizziness. 19:38 All other systems are negative. Exam: 19:39 Constitutional: This is a well developed, well nourished patient who is awake, alert, kb and in no acute distress. Head/Face: Normocephalic, atraumatic. ENT: Moist Mucous membranes Cardiovascular: Regular rate and rhythm with a normal S1 and S2. No gallops, murmurs, or rubs. No pulse deficits. Respiratory: Respirations even and unlabored. No increased work of breathing. Talking in full sentences Abdomen/GI: Soft, non-tender. No distention Skin: Warm, dry with normal turgor. Normal color. MS/ Extremity: Pulses equal, no cyanosis. Neurovascular intact. Full, normal range of motion. Neuro: Awake and alert, GCS 15, oriented to person, place, time, and situation. Moves all extremities. Normal gait. Psych: Awake, alert, with orientation to person, place and time. Behavior, mood, and affect are within normal limits. 19:39 Abdomen/GI: Inspection: Urostomy bag in place. 19:55 ECG was reviewed by the Attending Physician. Vital Signs: 17:10 BP 121 / 98; Pulse 111; Resp 18; Temp 97.1; Pulse Ox 100% on R/A; Weight 83.91 kg; hb Height 5 ft. 9 in. ; Pain 0/10; 17:48 BP 120 / 69; Pulse 93; Resp 18; Pulse Ox 96% on R/A; Pain 0/10; ld1 17:59 BP 118 / 69 Supine; Pulse 91; ll1 18:04 BP 107 / 58 Sitting; Pulse 92; ll1 18:06 BP 99 / 65 Standing; Pulse 114; ll1 18:31 BP 99 / 65; Pulse 85; Resp 12; Pulse Ox 99% on R/A; ld1 19:13 BP 123 / 60; Pulse 85; Resp 16; Pulse Ox 99% on R/A; lg3 19:37 BP 145 / 70 Supine; Pulse 82; Resp 14; Pulse Ox 99% ; kd3 19:37 BP 132 / 69 Sitting; Pulse 87; Resp 11; Pulse Ox 100% ; kd3 19:37 BP 153 / 76 Standing; Pulse 101; Resp 12; Pulse Ox 100% on R/A; kd3 17:10 Body Mass Index 27.32 (83.91 kg, 175.26 cm) hb 17:10 Pain Scale: Adult hb 17:48 Pain Scale: Adult ld1 MDM: 17:14 Patient medically screened. kb 19:32 ED course: Patient is a 76-year-old male who is sent over by Dr. Fletcher's office for kb rectal bleeding, dizziness, orthostatic positive. Patient had a colonoscopy on April 23 and EGD on April 26. During colonoscopy several polyps were removed. On exam patient has no abdominal tenderness. Respirations even unlabored, lungs clear bilaterally, no neurodeficits. Serum labs and CT scan completed and reviewed. H\T\H stable at this time. CT scan shows no acute findings. Patient educated on need for transfer due to lack of GI services at this facility. Patient does not want to be transferred at this time. States he is feeling better and prefers to go home. Patient educated on risks including syncopal episode, worsening of condition, . Educated to return immediately for worsening symptoms or any Other concerns.. . 19:37 Differential diagnosis: GI bleed, hemorrhoids, postop complication. Data reviewed: kb vital signs, nurses notes. Consideration of Admission/Observation Escalation of care including admission/observation considered. Transfer considered but patient refuses at this time.. Historians other than the Patient: Discussed case with PA at Dr. Fletcher's office.. Counseling: I had a detailed discussion with the patient and/or guardian regarding: the historical points, exam findings, and any diagnostic results supporting the discharge/admit diagnosis, lab results, radiology results, the need to transfer to another facility, [facility] does not immediately have the required specialist. 19:52 ED course: Patient has decided to leave our facility AGAINST MEDICAL ADVICE. I have kb assessed the patient's ability to make an informed decision and it is my opinion at this time that the patient has the medical decision-making capacity to comprehend information regarding current medical condition and appreciates the impact of the disease or condition and the consequences of various options for treatment, including foregoing treatment. The patient possesses the ability to evaluate all treatment options, compare the risk and benefits of each option, communicate choice and is able to make rational choices. I have explained to the patient further testing, treatment, and evaluation I would like to perform during the current emergency department visit as well as any possible alternatives that could be accomplished in a timely manner. I have outlined the possible risk of foregoing any or all of these interventions and the patient understands and acknowledges that the decision to leave may result in undesirable consequences such as , permanent disability, and/or loss of current lifestyle. Even though leaving AMA a is not ideal, I have instructed the patient to follow any discharge instructions given, take any medications prescribed and resume care as soon as possible with another provider. Additionally, I have clearly stated that the patient is welcome to return at any time to continue care at our facility.. 19:55 Independent interpretation of the following test(s) in the Emergency Department EKG: mary See my EKG interpretation above. 20:58 ED course: Patient care was assumed from physician unit assistant at 8:40 PM. Patient sp4 attempted to leave the emergency room to be released home as an informed discharge however he developed another bloody bowel movement and became pale and dizzy and had to return back to his room. On rectal exam patient had dark red blood per rectum indicative of colonic bleed. Patient most likely has diverticular bleed and will require colonoscopy on the emergent basis. [place] and we will have to consult outside hospital for a GI coverage so that patient can be transferred for emergent, will recheck blood counts to see if patient requires transfusion. 04/30 17:19 Order name: Basic Metabolic Panel; Complete Time: 18:12 kb 04/30 17:19 Order name: CBC with Diff; Complete Time: 18:01 kb 04/30 17:19 Order name: Hepatic Function; Complete Time: 18:12 kb 04/30 17:19 Order name: Magnesium; Complete Time: 18:12 kb 04/30 17:19 Order name: Protime (+inr); Complete Time: 18:01 kb 04/30 17:19 Order name: Ptt, Activated; Complete Time: 18:01 kb 04/30 17:19 Order name: Troponin High Sensitivity; Complete Time: 18:12 kb 04/30 17:19 Order name: EKG; Complete Time: 17:20 kb 04/30 17:19 Order name: Cardiac monitoring; Complete Time: 17:48 kb 04/30 17:19 Order name: EKG - Nurse/Tech; Complete Time: 18:10 kb 04/30 17:19 Order name: IV Saline Lock; Complete Time: 17:48 kb 04/30 17:19 Order name: Labs collected and sent; Complete Time: 17:48 kb 04/30 17:19 Order name: NPO; Complete Time: 17:20 kb 04/30 17:19 Order name: O2 Per Protocol; Complete Time: 17:20 kb 04/30 17:19 Order name: O2 Sat Monitoring; Complete Time: 17:20 kb 04/30 17:19 Order name: Orthostatics; Complete Time: 18:09 kb 04/30 17:19 Order name: Urine Dipstick-Ancillary (obtain specimen); Complete Time: 17:48 kb 04/30 17:23 Order name: CT Abd/Pelvis - IV Contrast Only; Complete Time: 19:17 kb 04/30 17:48 Order name: Urine Dipstick-Ancillary; Complete Time: 18:01 EDMS 04/30 18:12 Order name: Urine Microscopic Only kb 04/30 19:32 Order name: Orthostatics; Complete Time: 19:37 kb 04/30 20:55 Order name: Saline Lock sp4 04/30 20:54 Order name: CBC w/o diff sp4 04/30 20:54 Order name: COVID-19 SARS RT PCR sp4 EC:55 Rate is 95 beats/min. Rhythm is regular. QRS Wilcox is Normal. DE interval is normal at kb 162 msec. QRS interval is normal at 74 msec. QT interval is normal at 442 msec. Administered Medications: 18:23 Drug: NS 0.9% IV 1000 ml Route: IV; Rate: 1000 ml; Site: left antecubital; ld1 20:28 Follow up: Response: No adverse reaction; IV Status: Completed infusion; IV Intake: lg3 1000ml Disposition: 21:00 Co-signature as Attending Physician, Jone Carcamo MD I reviewed the patient's care sp4 provided by Advanced Practice Provider \T\ agree w/ the diagnosis \T\ care plan. I personally saw the pt \T\ performed a substantive portion of the visit, incldng all aspects of the (History/Exam/Medical Decision Making). Disposition Summary: 04/30/22 21:04 Transfer Ordered Accepting Physician: ST leonardo villalba Transfer Location: [facility] la1 Reason: Higher level of care la1 Condition: Fair(04/30/22 21:04) la1 Problem: new la1 Symptoms: are unchanged la1 Diagnosis - GI Bleed/ Gastrointestinal hemorrhage, unspecified(04/30/22 21:04) la1 Forms: - Medication Reconciliation Form la1 - SBAR form la1 Signatures: Dispatcher [employer] EDPA Sidra Cohen FNP-C FNP-Ckb Gilmar Navarro FNP-C FNP-Cla1 Tala Shabazz RN RN Flaca Coleman RN RN ld1 Jone Carcamo MD MD sp4 Arlette Olivera RN lg3 Corrections: (The following items were deleted from the chart) 21:03 19:53 Home kb la1 21:03 19:53 Stable kb la1 21:03 19:53 GI Bleed/ Gastrointestinal hemorrhage, unspecified kb la1
[2022-04-30 21:42] LABS: Hematocrit 29.9 % (39.6-49.0); MCV 84.9 fL (80-100); MPV 9.8 fL (7.6-11.3); RBC Red Blood Cell Count 3.52 M/uL (4.33-5.43)
[2022-04-30] MEDS ORDERED: PANTOPRAZOLE 40 MG INJ ONE (22:06)
[2022-04-30] MEDS ORDERED: METOCLOPRAMIDE 10 MG/2mL INJ ONE (22:06)
[2022-04-30] MEDS ORDERED: NA CHLORIDE 0.9% 250 ML ONE (22:07)
[2022-05-01 01:01] VITALS: TEMP 97.1
[2022-05-01 11:01] VITALS: BP 115/59; O2SAT 99
--- NOTE | 2022-05-01 13:21 | EKG ---
Test Date: 2022-04-30 Test Time: 17:56:56 Fan Balancer: KIMMIE MEASUREMENT RESULTS: Intervals: Rate: 95 [place]: 162 QRSD: 74 QT: 352 QTc: 442 [place]: P: 60 [place]: 162 QRS: 58 T: 68 INTERPRETIVE STATEMENTS: Normal sinus rhythm Nonspecific ST and T wave abnormality Abnormal ECG Compared to ECG 06/14/2020 19:13:50 ST (T wave) deviation now present Sinus tachycardia no longer present T-wave abnormality no longer present Possible ischemia no longer present Electronically Signed On 05-01-22 13:19:39 CDT by Harpreet Malone
== END 2022-05-01 00:28 | disposition short-term general hospital (02) ==
LOC: ER 17:04
DX: K92.2 Gastrointestinal hemorrhage, unspecified (principal); R42 Dizziness and giddiness; I10 Essential (primary) hypertension; Z20.822 Contact with and (suspected) exposure to COVID-19
CPT/HCPCS: 96365; 96361; 93005; 85025; 80048; 36415; 86900; 83735; 86850; 85610; 86901; 80076; 85730; 81003; 85027; 84484; 74177; 96375; 99284; 96366; U0003; Q9967; J2765; C9113; J7050; J7030 ×2